=== PATIENT | male | born 1960 | race Caucasian/White ===

== ENCOUNTER 2016-10-21 09:15 | Inpatient (IN) | payer OTHER ==
[~2016-10-21] VITALS: Ht 170.2 cm; Wt 86.5 kg
[~2016-10-21 09:15] MED LIST: ASPEC81 PO; CHOL1TAB76 PO; FEXO1TAB46 PO; FLUT0.15 NAE; MICO2POW EXT; MISCCAP80 PO; MULT-94 PO
--- NOTE | 2016-10-21 09:51 | EMERGENCY ROOM VISIT NOTE ---
History Report prepared by Ellen: Yong Ramirez Under the Supervision of: Dr. Jose Ramon Clifford M.D. First contact with patient: 09:39 Chief Complaint: CARDIAC ASSESSMENT Stated Complaint: SOB, FAST HEARTRATE Nursing Triage Summary: patient states "I havent been feeling well for the past couple weeks. increased fatigue with any movement. A weird sensation in my chest I just cant describe. I have been having lots of pvc's in the past week or so. I am being followed because I have a bad aortic valve." was working today walked up steps and "I just couldn't do anymore." History of Present Illness The patient is a 56 year old male who presents to the Emergency Room with complaints of an episode of shortness of breath occurring earlier this morning. 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 He notes going up a flight of steps, had difficulty catching his breath, and was exhausted upon coming down the steps. Upon arriving at the hospital, he felt his heart rate was elevated around 140, and he notes he was hyperventilating and felt lightheaded. He reports he "didn't quite feel himself" early this morning but did not notice the shortness of breath initially. Per the patient's friend, these symptoms have been occurring for the past couple of months. The patient states today was the worse episode. He adds that he has had off and on left sided chest discomfort which is not exertional and resolves on its own. He denies having this chest discomfort with the shortness of breath today. The patient denies any history of COPD, asthma, or emphysema, but has mild aortic stenosis. He had an echo 2 days ago, and has an appointment in 3 days to follow. He denies any family history of blood clots, and has not been on any long trips recently. Source of History: patient, friend Onset: earlier this morning Position: other (global) Quality: other (shortness of breath) Timing: other (episode) Modifying Factors (Worsening): exertion Associated Symptoms: + chest pain (off and on nonexertional discomfort) Note: The patient notes having an elevated heart rate and breathing rate, and lightheadedness. Review of Systems See HPI for pertinent positives & negatives. A total of 10 systems reviewed and were otherwise negative. Past Medical & Surgical Medical Problems: (1) Allergic reaction to medication (2) Bicuspid aortic valve (3) DDD (degenerative disc disease), cervical (4) Diaphragmatic hernia (5) ESOPHAGEAL STRICTURE (6) GERD (gastroesophageal reflux disease) (7) History of basal cell carcinoma (8) History of hypertension (9) History of ventricular ectopy (10) Hyperlipidemia (11) Moderate aortic regurgitation (12) Moderate aortic stenosis (13) Palpitations (14) Psoriasis Surgical Problems: (1) H/O esophagogastroduodenoscopy (2) H/O rotator cuff surgery (3) Hx of tonsillectomy Family History Arrhythmia BROTHER Cancer Diabetes mellitus Heart disease FATHER (angina and bypass surgery, onset in 60s) UNCLE (onset in 60s) Social History Smoking Status: Unknown if Ever Smoked Alcohol Use: occasionally Drug Use: none Marital Status: single, in relationship Occupation Status: employed Current/Historical Medications Scheduled Atorvastatin (Lipitor), 20 MG PO DAILY Esomeprazole Magnesium (Nexium), 20 MG PO DAILY Allergies Coded Allergies: Ciprofloxacin (Verified Allergy, Mild, RASH, 10/21/16) Cephalexin (Verified Allergy, Unknown, RASH, 10/21/16) Latex (Verified Adverse Reaction, Mild, "GAVE STRANGE SENSATION TO SKIN", 10/21/16) Uncoded Allergies: TOPICAL STEROID (Allergy, Unknown, RASH AND FEELS LIKE SOMTHING IN THROAT, 01/19/15) Physical Exam Vital Signs Date Time Temp Pulse Resp B/P Pulse Ox O2 Delivery O2 Flow Rate FiO2 10/21/16 10:20 102 20 140/93 95 Room Air 10/21/16 10:12 96 Nasal Cannula 2.0 10/21/16 09:37 106 12 177/95 98 Nasal Cannula 2.0 10/21/16 09:26 119 10/21/16 09:25 36.7 131 22 181/105 96 Room Air 10/21/16 09:25 99 Nasal Cannula 2.0 10/21/16 09:25 96 Room Air Physical Exam GENERAL: Patient is in no acute distress. HEENT: No acute trauma, normocephalic atraumatic, mucous membranes moist, no nasal congestion, no scleral icterus. NECK: No stridor, no adenopathy, no meningismus, trachea is midline. LUNGS: Clear to auscultation bilaterally, no wheeze, no rhonchi, breath sounds equal. HEART: Mildly tachycardic with a 2/6 systolic murmur. Rhythm is regular. ABDOMEN: Soft, nontender, bowel sounds positive, no hernias, no peritonitis. EXTREMITIES: No cyanosis or edema, full range of motion of all the joints without pain or difficulty, no signs for acute trauma. NEUROLOGIC: Oriented x 3, no acute motor or sensory deficits, no focal weakness. SKIN: No rash, no jaundice, no diaphoresis. Medical Decision & Procedures ER Provider Diagnostic Interpretation: X-ray results as stated below per interpretation by me and the radiologist: CHEST ONE VIEW PORTABLE FINDINGS: The bones soft tissues and hemidiaphragms are normal. The cardiomediastinal silhouette is normal. The lungs are clear. The pulmonary vasculature is normal. IMPRESSION: Negative chest. Electronically signed by: Kody Murillo M.D. 10/21/2016 10:00 AM Dictated Date/Time: 10/21/2016 10:00 AM Laboratory Results 10/21/16 09:40 Red Blood Count 5.17, Mean Corpuscular Volume 83.6, Mean Corpuscular Hemoglobin 29.6, Mean Corpuscular Hemoglobin Concent 35.4, Mean Platelet Volume 9.6, Neutrophils (%) (Auto) 58.6, Lymphocytes (%) (Auto) 35.3, Monocytes (%) (Auto) 4.1, Eosinophils (%) (Auto) 1.2, Basophils (%) (Auto) 0.2, Neutrophils # (Auto) 4.72, Lymphocytes # (Auto) 2.85, Monocytes # (Auto) 0.33, Eosinophils # (Auto) 0.10, Basophils # (Auto) 0.02 10/21/16 09:40 Test 10/21/16 09:40 White Blood Count 8.07 K/uL (4.8-10.8) Red Blood Count 5.17 M/uL (4.7-6.1) Hemoglobin 15.3 g/dL (14.0-18.0) Hematocrit 43.2 % (42-52) Mean Corpuscular Volume 83.6 fL (80-100) Mean Corpuscular Hemoglobin 29.6 pg (25-34) Mean Corpuscular Hemoglobin Concent 35.4 g/dl (32-36) Platelet Count 184 K/uL (130-400) Mean Platelet Volume 9.6 fL (7.4-10.4) Neutrophils (%) (Auto) 58.6 % Lymphocytes (%) (Auto) 35.3 % Monocytes (%) (Auto) 4.1 % Eosinophils (%) (Auto) 1.2 % Basophils (%) (Auto) 0.2 % Neutrophils # (Auto) 4.72 K/uL (1.4-6.5) Lymphocytes # (Auto) 2.85 K/uL (1.2-3.4) Monocytes # (Auto) 0.33 K/uL (0.11-0.59) Eosinophils # (Auto) 0.10 K/uL (0-0.5) Basophils # (Auto) 0.02 K/uL (0-0.2) RDW Standard Deviation 38.7 fL (36.4-46.3) RDW Coefficient of Variation 12.8 % (11.5-14.5) Immature Granulocyte % (Auto) 0.6 % Immature Granulocyte # (Auto) 0.05 K/uL (0.00-0.02) Anion Gap 9.0 mmol/L (3-11) Est Creatinine Clear Calc Drug Dose 73.0 ml/min Estimated GFR () 77.9 Estimated GFR (Non- 67.2 BUN/Creatinine Ratio 17.2 (10-20) Calcium Level 8.9 mg/dl (8.5-10.1) Magnesium Level 1.8 mg/dl (1.8-2.4) Total Bilirubin 0.3 mg/dl (0.2-1) Aspartate Amino Transf (AST/SGOT) 27 U/L (15-37) Alanine Aminotransferase (ALT/SGPT) 47 U/L (12-78) Alkaline Phosphatase 110 U/L (45-117) Total Protein 8.1 gm/dl (6.4-8.2) Albumin 3.6 gm/dl (3.4-5.0) Globulin 4.5 gm/dl (2.5-4.0) Albumin/Globulin Ratio 0.8 (0.9-2) Chemistry Specimen Hemolysis POC troponin and D-dimer were both negative Laboratory results reviewed by me. ECG Indication: SOB/dyspnea Rate (beats per minute): 121 Rhythm: sinus tachycardia Findings: no acute ischemic change, no ectopy, other (possible old inferior infact) ED Course 0940: The patient was evaluated in room A2. A complete history and physical exam was performed. 1030: Discussed the patient's case with Brianna Silver PA-C. The patient will be evaluated for further management. 1038: I updated the patient and his is doing well. 1040: Upon reexamination the patient is hemodynamically stable. I discussed results and treatment plan with the patient. He verbalizes agreement and understanding. The patient will be evaluated for further management. Medical Decision Differentials include aortic stenosis, cardiac ischemia, OK, dysrhythmia, anemia , electrolyte imbalance, pneumonia, and PE. There is no leukocytosis or concerning anemia. No significant electrolyte abnormality, kidney failure or hepatitis. EKG showed a mild sinus tachycardia, no acute ischemia. There was a possible old inferior infarct. Initial troponin testing was negative. D-dimer testing was negative. With a negative d -dimer and my low suspicion for PE, I will stop the workup for this diagnosis. Chest film does not show mediastinal widening, pneumonia or CHF. Patient is resting comfortably. He feels well now that he is still. His symptoms are primarily exertional. I do think further cardiac workup is warranted. His issues may be related to his aortic stenosis. He may have coronary disease. I spoke to the patient and case management. Further workup here in the hospital was advised. Consults Time Called: 1025 Consulting Physician: Brianna Silver PA-C, [facility] Returned Call: 1030 Discussed the patient's case with Brianna Silver PA-C. The patient will be evaluated for further management. Impression Primary Impression: Shortness of breath Additional Impression: Tachycardia Scribe Attestation The scribe's documentation has been prepared under my direction and personally reviewed by me in its entirety. I confirm that the note above accurately reflects all work, treatment, procedures, and medical decision making performed by me. Departure Information Dispostion Being Evaluated By Hospitalist Referrals Michael Cisneros, RamonOKaylen (PCP) Patient Instructions [facility] Problem Qualifiers
[2016-10-21 10:01] LABS: BASO % 0.2 %; BASO ABS # 0.02 K/uL (0-0.2); COMPLETE YES; EOS % 1.2 %; HEMATOCRIT 43.2 % (42-52); IG% 0.6 %; LYMPH % 35.3 %; LYMPH ABS # 2.85 K/uL (1.2-3.4); MEAN CELL VOLUME 83.6 fL (80-100); MEAN CORPUSCULAR HEMOGLOBIN 29.6 pg (25-34); MEAN CORPUSCULAR HGB CONC 35.4 g/dl (32-36); MEAN PLATELET VOLUME 9.6 fL (7.4-10.4); MONO % 4.1 %; NEUT % 58.6 %; PLATELET COUNT 184 K/uL (130-400); RED BLOOD COUNT 5.17 M/uL (4.7-6.1); WHITE BLOOD COUNT 8.07 K/uL (4.8-10.8)
--- NOTE | 2016-10-21 10:02 | DIAGNOSTIC IMAGING REPORT ---
CHEST ONE VIEW PORTABLE CLINICAL HISTORY: EVALUATE RESPIRATORY DISTRESS. DYSPNEA dyspnea COMPARISON STUDY: 02/22/2016 FINDINGS: The bones soft tissues and hemidiaphragms are normal. The cardiomediastinal silhouette is normal. The lungs are clear. The pulmonary vasculature is normal. IMPRESSION: Negative chest. Electronically signed by: Kody Murillo M.D. 10/21/2016 10:00 AM Dictated Date/Time: 10/21/2016 10:00 AM
[2016-10-21] MEDS ORDERED: ATOR-22 PO (10:31)
[2016-10-21] MEDS ORDERED: ESOM20CA PO (10:31)
[2016-10-21 10:44] LABS: ALB/GLOB RATIO 0.8 (0.9-2); BUN/CREATININE RATIO 17.2 (10-20); CALCIUM 8.9 mg/dl (8.5-10.1); CREATININE 1.2 mg/dl (0.60-1.40); MAGNESIUM 1.8 mg/dl (1.8-2.4); POTASSIUM 4.1 mmol/L (3.5-5.1)
[2016-10-21 11:15] VITALS: O2SAT 95; Ht 170.2 cm; Wt 86.5 kg
[2016-10-21] MEDS ORDERED: ALUMINUM/MAGNESIUM/SIMETH (MAALOX MAX) 30 ML UDC PO PRN (12:30)
[2016-10-21] MEDS ORDERED: MAGNESIUM HYDROXIDE SUSP 30 ML UDC PO PRN (12:30)
[2016-10-21] MEDS ORDERED: NITROGLYCERIN 0.4 MG SL PER TAB CHARGE SL PRN (12:30)
[2016-10-21] MEDS ORDERED: ONDANSETRON INJ 2 MG/ML 2 ML VIAL IV PRN (12:30)
[2016-10-21] MEDS ORDERED: ACETAMINOPHEN 325 MG TAB PO PRN (12:30)
[2016-10-21] MEDS ORDERED: ASPIRIN 81 MG ECTAB PO STA (12:32)
[2016-10-21] MEDS ORDERED: LEVALBUTEROL 0.63MG/3 ML NEB INH PRN (12:45)
[2016-10-21] MEDS ORDERED: ASPIRIN 81 MG CHEW ONE (12:45)
[2016-10-21] MEDS ORDERED: IV FLUIDS COMPLETED PRN (13:15)
[2016-10-21 14:23] VITALS: BP_SYST 179; BP_SYST 200; BP_DIAS 82; BP_DIAS 88; PULSE 91; TEMP 36.7; O2SAT 92
[2016-10-21] MEDS: SODIUM CHLORIDE 0.9% 1000ML 1,000 ML IV SCH (14:32)
[2016-10-21 16:00] VITALS: O2SAT 94
[2016-10-21 17:00] VITALS: BP 173/86; PULSE 79; TEMP 36.8; O2SAT 99
[2016-10-21 19:45] VITALS: BP 167/96; PULSE 78; TEMP 36.8; O2SAT 97
[2016-10-21] MEDS ORDERED: METOPROLOL TARTRATE 1 MG/ML VIAL IV PRN (20:45)
[2016-10-21] MEDS ORDERED: HydrALAZINE HCL 20 MG/ML VIAL IV. PRN (20:45)
[2016-10-21 20:55] LABS: CKMB/CK RATIO 1.1 (0-3.0)
[2016-10-21 22:44] VITALS: BP 142/85; PULSE 78; TEMP 36.6; O2SAT 95
[2016-10-22 04:00] VITALS: BP 144/81; PULSE 72; TEMP 36.5; O2SAT 95
[2016-10-22 05:52] LABS: CHOLESTEROL 171 mg/dl (0-200); CHOLESTEROL/HDL RATIO 5.7; CKMB/CK RATIO 1.6 (0-3.0); HDL CHOLESTEROL 30 mg/dl; LDL CHOLESTEROL CALCULATED 102 mg/dl; TRIGLYCERIDES 196 mg/dl (0-150); VERY LOW DENSITY LIPOPROT CALC 39 mg/dl
[2016-10-22 07:45] VITALS: BP_SYST 131; PULSE 68; TEMP 36.5; O2SAT 99
[2016-10-22] MEDS: SODIUM CHLORIDE 0.9% 1000ML 1,000 ML IV SCH ×3 (08:28→20:21)
[2016-10-22] MEDS ORDERED: ATORVASTATIN 20 MG TAB PO SCH (09:00)
[2016-10-22] MEDS ORDERED: ASPIRIN 81 MG ECTAB PO SCH (09:00)
[2016-10-22] MEDS ORDERED: PANTOprazole SOD 40 MG TAB PO SCH (09:00)
--- NOTE | 2016-10-22 11:23 | HISTORY & PHYSICAL EXAMINATION ---
DATE OF ADMISSION: 10/21/2016 CHIEF COMPLAINT: Shortness of breath and palpitations. HISTORY OF PRESENT ILLNESS: This is a 56-year-old male with past medical history significant for bioprosthetic aortic valve with moderate stenosis, history of allergy reaction, Oesophageal stricture,Diaphragmatic hernia, dysphagia, history of abdominal pain, hyperlipidemia, hyperglycemia, rosacea, dermatitis, And allergic rhinitis, presents with shortness of breath and palpitations. As per the patient since last one year he is not feeling well , and getting shortness of breath since last 6 months. End of the everyday, he feels exhausted. Since the last 2 weeks, he is feeling 2 / 10 left chest pain radiating to the left neck and left shoulder, no shortness of breath. Occasionally, he has some lightheadedness. The chest pain can come anytime when sitting in the couch, lasts for 2-3 minutes and resolves. Since last 10/11/2016, this is happening every day. Today, while at work when climbed one flight of steps, he was very short of breath and he had to stop. At that time, his coworkers brought him to the ER. Currently, resting comfortably and denies any chest pain or shortness of breath or cough. No recent fever or chills. No nausea, no vomiting, no diarrhea, and no abdominal pain. Hemodynamically stable. When he came to the ER initially, his heart rate was in 140s. Blood pressure elevated, but currently the heart rate is in 80s and 90s. ALLERGIES: ALLERGY TO CIPROFLOXACIN KEFLEX, BETAMETHASONE DIPROPIONATE. PAST MEDICAL HISTORY: As mentioned above. PAST SURGICAL HISTORY: Right rotator cuff arthroscopy, colonoscopy, EGD, and tonsillectomy. MEDICATIONS: At home, the patient is on fish oil 1000 mg p.o. t.i.d., Coenzyme Q10 at 400 mcg p.o. daily, Protonix 40 mg p.o. daily, Lipitor 20 mg p.o. daily, Sudafed one tablet p.o. daily, aspirin 81 mg p.o. daily, and vitamin D 2000 units p.o. daily. FAMILY HISTORY: Significant for, father had heart disorder, mother has hypertension, and brother has hypertension. SOCIAL HISTORY: Former smoker, quit in , smoked one pack a day for 20 years. Alcohol rarely. No drug use. REVIEW OF SYMPTOMS: As per HPI. Rest of review of symptoms negative. PHYSICAL EXAMINATION: GENERAL: The patient is moderate built, not in distress. VITAL SIGNS: Temperature 36.7, pulse when he came in was 130 and currently in the 80s-90s, respiratory rate 20, blood pressure 127/93, and oxygen 98% on 2 liters. HEENT: No pallor, no icterus. Pupils equal, round, and reactive to light. NECK: No JVD, no neck masses, no carotid bruits. CARDIOVASCULAR: S1 and S2 heard, regular rate and rhythm. Systolic murmur in aortic area. No gallop. RESPIRATORY SYSTEM: Clear to auscultation bilaterally. No accessory muscle use. No wheezing and no crackles. ABDOMEN: Soft, bowel sounds present. Nontender. No distention. CENTRAL NERVOUS SYSTEM: Cranial nerves II-XII grossly intact. Nonfocal. EXTREMITIES: No edema, no erythema. LABS: WBC 8, hemoglobin 15.3, hematocrit 43.2, and platelets 184. Sodium 138, potassium 4.1, chloride 104, bicarbonate 25, BUN 21, creatinine 1.2, serum glucose 200, calcium 8.9, and magnesium 1.8. Total bilirubin 0.3. AST 27, ALT 47, and alkaline phosphatase 110. Chest x-ray, negative chest. EKG: Sinus tachycardia at a rate of 121. No acute ST changes seen. ASSESSMENT AND PLAN: This is a 56-year-old male who presents with exertion, shortness of breath and palpitation AND CHEST PAIN. 1.SOB/PALPITATIONS/CHEST PAIN No history of COPD or emphysema. Unofficial reading of D-dimer is negative. Chest x-ray unremarkable. Troponin negative. History of bioprosthetic aortic valve. Had echocardiogram done couple of days ago and supposed to follow cardiology next week. On presentation, his heart rate was in 140s, sinus tachycardia, currently resting and his heart rate is stable. sob on exertion going on for the last 6 months and also having chest pain since last 2 weeks on and off, comes and goes on its own. We will monitor on tele floor. Serial cardiac enzymes, consult cardiology for further recommendations. 2. Hyperlipidemia. Continue statin. 3. Hyperglycemia, not on any medications. We will follow hemoglobin A1c levels. 4. History of gastroesophageal reflux disease. Continue PPI. 5. Deep vein thrombosis prophylaxis, SCDs and TEDs for now. 6. Disposition: Observation in tele floor level 1 full code. MTDD
[2016-10-22 12:05] VITALS: BP 155/93; PULSE 73; TEMP 36; O2SAT 95
--- NOTE | 2016-10-22 12:59 | Progress Note ---
Internal Med Progress Note Date of Service: Oct 22, 2016. Provider Documentation: SUBJECTIVE: resting comfortably no more episodes of sob or chest pain since last night afebrile hemodynamics stable OBJECTIVE: Vital Signs-as noted below Exam: General-alert and oriented ENT-normal hearing Neck-no neck masses Lungs-cta b/l no wheezing no crackles Heart-s1 and s2 heard regular rate and rhythm no murmurs Abdomen-soft bowel sounds present non tender no distension Extremities-no erythema no edema Neuro-alert and awake moves extremities Lab data as noted below. ASSESSMENT & PLAN: 1.SOB/PALPITATIONS/CHEST PAIN No history of COPD or emphysema. D-dimer is negative?. Chest x-ray unremarkable.Serial CE negative. History of bioprosthetic aortic valve. Had echocardiogram done couple of days ago and supposed to follow cardiology next week. Sinus tachycardia on presentation. Currently chest pain free and No SOB. Heart rates stable. Seen by cardiology and decided for cardiac cath in am to rule out CAD for ongoing issues. for further recommendations. 2. Hyperlipidemia. Continue statin.[id number], HDL 30,TG 196, chol 171. 3. Hyperglycemia, not on any medications. We will follow hemoglobin A1c levels. 4. History of gastroesophageal reflux disease. Continue PPI. 5. Deep vein thrombosis prophylaxis, SCDs and TEDs for now. 6. Disposition: Await cardiac cath Monitor in tele Vital Signs: Date Time Temp Pulse Resp B/P Pulse Ox O2 Delivery O2 Flow Rate FiO2 10/22/16 12:05 36.0 73 20 155/93 95 Room Air 10/22/16 08:00 Room Air 10/22/16 07:45 36.5 68 20 131/ 99 Room Air 10/22/16 04:00 36.5 72 18 144/81 95 Room Air 10/22/16 04:00 Room Air 10/21/16 23:59 Room Air 10/21/16 22:44 36.6 78 18 142/85 95 Room Air 10/21/16 20:00 Room Air 10/21/16 19:45 36.8 78 22 167/96 97 Room Air 10/21/16 17:00 36.8 79 22 173/86 99 Room Air 10/21/16 16:00 94 Room Air 10/21/16 14:23 36.7 91 24 200/82 92 Room Air 179/88 10/21/16 13:55 74 20 154/90 99 Lab Results: Results Past 24 Hours Test 10/21/16 20:15 10/22/16 04:45 10/22/16 06:57 10/22/16 11:32 Range/Units Total Creatine Kinase 123 96 39-308 U/L Creatine Kinase MB 1.3 1.5 0.5-3.6 ng/ml Creatine Kinase MB Ratio 1.1 1.6 0-3.0 Troponin I < 0.015 < 0.015 0-0.045 ng/ml Triglycerides Level 196 0-150 mg/dl Cholesterol Level 171 0-200 mg/dl HDL Cholesterol 30 mg/dl LDL Cholesterol, Calculated 102 mg/dl VLDL Cholesterol, Calculated 39 mg/dl Cholesterol/HDL Ratio 5.7 Thyroid Stimulating Hormone (TSH) 2.000 0.300-4.500 uIu/ml Bedside Glucose 123 107 70-99 mg/dl
--- NOTE | 2016-10-22 13:22 | CARDIOLOGY CONSULTATION ---
DATE OF CONSULTATION: 10/22/2016 CONSULTATION REQUESTED BY: Dr. Tai. REASON FOR CONSULTATION: Shortness of breath and palpitations. HISTORY OF PRESENT ILLNESS: Mr. Rodriges is a very pleasant 56-year-old gentleman who was recently followed with Dr. Del Real of our cardiology practice, presented to [facility] on 10/21/2016 with a complaint of shortness of breath and severe fatigue. The patient states that he has just not felt himself over the last several weeks. 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 Then he states that yesterday, he was at work, feeling his normal lethargic self when he suddenly climbed set of stairs and became significantly dyspneic and lightheaded. He states that at that point, he was unable to complete his duties. His fellow EMT saw that he was in some distress and sat him down. The patient felt too lightheaded to even be able to drive the ambulance afterwards. This was associated with some palpitations. He just felt as though his heart was pounding in his chest after climbing up the steps. He denies significant pain though. He states he has felt very lightheaded, very short of breath and very fatigued. He then went home and rested and his symptoms persisted for several hours and then finally came into the Emergency Department. In the Emergency Department, he was found to be in sinus tachycardia. Otherwise, his workup was unremarkable except for being volume depleted by numbers. He was given a liter normal saline and admitted to telemetry. He states overnight he still feels significantly fatigued and dyspneic with even minimal exertion. The day of the event, he states he has been drank over 70 ounces of water, but admits that he had 3 large cups of coffee as well. PAST SURGICAL HISTORY: 1. EGD. 2. Tonsillectomy. 3. Schatzki's ring dilatation. 4. Colonoscopy. 5. Right rotator cuff repair. MEDICAL ILLNESSES: 1. Bicuspid aortic valve with moderate stenosis and moderate insufficiency, stable by most recent echocardiogram on 10/18/2016. 2. History of esophageal stricture, status post dilatation. 3. Dyslipidemia. 4. Rosacea. 5. Psoriasis. FAMILY HISTORY: Denies any premature coronary artery disease or sudden cardiac . SOCIAL HISTORY: He has a remote tobacco use history. Drinks rare alcohol. Denies any recreational drug use. He drinks 2-3 cups of coffee a day. 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 REVIEW OF SYSTEMS: As per HPI, all other review of systems reviewed and negative at this time. ALLERGIES: 1. CIPRO. 2. ENVIRONMENTAL ALLERGIES. 3. KEFLEX. 4. BETAMETHASONE. MEDICATIONS AN OUTPATIENT: 1. Aspirin 81 mg daily. 2. Atorvastatin 20 mg daily. 3. Coenzyme Q10 at 400 mg daily. 4. Shipman-3 fish oil 1000 mg 3 times a day. PHYSICAL EXAMINATION: VITAL SIGNS: Temperature 36.5, pulse 68, respiratory rate 12, and blood pressure 144/81. GENERAL: Awake, alert, and oriented x3, in no acute distress. HEENT: Normocephalic and atraumatic. Pupils are equal, round, and reactive to light and accommodation. Extraocular muscles intact. Anicteric sclerae. Moist mucous membranes. NECK: No JVD. No bruit. CARDIOVASCULAR: Regular. Positive S4. Normal S1 and S2. No S3. Soft 2/6 mid to late systolic ejection murmur greatest at the right sternal border second intercostal space without radiation. No rubs. PULMONARY: Clear to auscultation bilaterally. No rales, rhonchi, or wheezing. ABDOMEN: Bowel sounds x4, soft. No rebound, guarding, or tenderness. No organomegaly. EXTREMITIES: No clubbing, cyanosis or edema. +2 pedal pulses bilaterally. SKIN: Warm and dry. TEST RESULTS: A 12-lead EKG performed on 10/21/2016 in the Emergency Department independently reviewed at this time shows sinus tachycardia with no ischemic changes compared to previous studies. A 2D echocardiogram performed on 10/18/2016 was read as moderate aortic valve stenosis is present, normal wall motion, normal LV systolic function, EF 60%-64%, and aortic valves congenitally bicuspid. There is fusion on the left and right coronary cusps with resultant restrictive excursion. The aortic valve was moderately calcified. Mild to moderate aortic valve regurgitation is present. The Doppler evaluation appears to underestimate the severity of the aortic stenosis. Moderate aortic valve stenosis is present by 2D imaging. Exercise stress echocardiogram performed in December 2015 was nonischemic. IMPRESSION: 1. Worsening dyspnea on exertion. 2. Significant fatigue. 3. Prerenal azotemia. 4. Moderate aortic valve stenosis and regurgitation. RECOMMENDATIONS: It was my pleasure to see Mr. Rodriges in consultation today. The patient was counseled given the progression of his symptoms along with his recent nonischemic stress echocardiogram. I believe that the most prudent course of action at this point will be to perform a cardiac catheterization to directly visualize his coronary anatomy and evaluate for any limitations of blood flow. This will give us the added benefit of directly invasively measuring aortic valve pressures as well. So, he agrees with this plan. We will perform a cardiac catheterization in the a.m. He will be made n.p.o. after midnight. No other medications will be started at this time; however, will give him another liter of normal saline for volume expansion. ZAHRA
[2016-10-22 16:03] VITALS: BP 132/68; PULSE 77; TEMP 36.6; O2SAT 95
[2016-10-22 19:55] VITALS: BP 150/76; PULSE 76; TEMP 36.8; O2SAT 99
[2016-10-22 23:47] VITALS: BP 127/62; PULSE 74; TEMP 36.7; O2SAT 95
[2016-10-23 03:40] VITALS: BP 123/77; PULSE 66; TEMP 36.4; O2SAT 97
[2016-10-23 07:39] LABS: ESTIMATED AVERAGE GLUCOSE 140 mg/dl; HA1C FLAG Normal (Normal)
[2016-10-23 08:01] VITALS: BP 145/79; PULSE 66; TEMP 36.6; O2SAT 97
--- NOTE | 2016-10-23 08:36 | ECHOCARDIOGRAM REPORT ---
*NOTICE TO RECEIVING CONSTITUTION PARTY AGENCY This information is strictly Confidential and protected under [place] law. [place] law prohibits you from making any further disclosure of this information unless further disclosure is expressly permitted by the written consent of the person to whom it pertains or is authorized by law. A general authorization for the release of medical or other information is not sufficient for this purpose. Hospital accepts no responsibility if the information is made available to any other person, INCLUDING THE PATIENT. Interpretation Summary * Name: PAUL MALDONADO Study Date: 10/22/2016 11:29 AM BP: 144/81 mmHg * Patient Location: C.2T\S\S239\S\2 HR: 71 * : 1960 (M/d/yyyy) Gender: Male Height: 67 in * Age: 56 yrs Ethnicity: [place] Weight: 191 lb * Ordering Physician: Charlie Medrano * Referring Physician: Self, Referred * Performed By: Radha Ramirez [facility] * * Reason For Study: VALVULAR HEART DISEASE * BSA: 2.0 m2 * -- Conclusions -- * Normal LV chamber size with mild concentric LVH. * Normal LV systolic function, EF 60-65%. * No segmental left ventricular wall motion abnormalities are noted. * Bicuspid aortic valve. Procedure Details * Limited views were obtained. Left Ventricle * The left ventricle is normal in size. * There is mild concentric left ventricular hypertrophy. * Left ventricular systolic function is normal. * No segmental left ventricular wall motion abnormalities are noted. * Ejection Fraction = 60-65%. * The left ventricular wall motion is normal. Aortic Valve * The aortic valve is bicuspid. MMode 2D Measurements and Calculations IVSd 1.3 cm IVSs 1.7 cm LVIDd 4.7 cm LVIDs 2.9 cm LVPWd 1.1 cm LVPWs 1.4 cm IVS/LVPW 1.1 FS 37.4 % EDV(Teich) 101.0 ml ESV(Teich) 32.9 ml EF(Teich) 67.4 % EDV(cubed) 102.0 ml ESV(cubed) 25.0 ml EF(cubed) 75.5 % % IVS thick 30.9 % % LVPW thick 24.9 % LV mass(C)d 214.5 grams LV mass(C)dI 108.2 grams/m\S\2 LV mass(C)s 163.5 grams LV mass(C)sI 82.4 grams/m\S\2 SV(Teich) 68.1 ml SI(Teich) 34.3 ml/m\S\2 SV(cubed) 77.0 ml SI(cubed) 38.8 ml/m\S\2 Ao root diam 3.9 cm Ao root area 11.8 cm\S\2 LA dimension 3.6 cm LA/Ao 0.92 LVOT diam 2.0 cm LVOT area 3.0 cm\S\2 LVAd ap4 29.7 cm\S\2 LVLd ap4 7.6 cm EDV(MOD-sp4) 93.0 ml EDV(sp4-el) 98.8 ml LVAs ap4 16.6 cm\S\2 LVLs ap4 6.1 cm ESV(MOD-sp4) 36.2 ml ESV(sp4-el) 38.5 ml EF(MOD-sp4) 61.0 % EF(sp4-el) 61.1 % LVAd ap2 28.3 cm\S\2 LVLd ap2 7.8 cm EDV(MOD-sp2) 87.0 ml EDV(sp2-el) 87.5 ml LVAs ap2 18.9 cm\S\2 LVLs ap2 6.3 cm ESV(MOD-sp2) 47.7 ml ESV(sp2-el) 47.9 ml EF(MOD-sp2) 45.2 % EF(sp2-el) 45.3 % LVLd %diff 2.0 % EDV(MOD-bp) 89.6 ml LVLs %diff 4.5 % ESV(MOD-bp) 42.1 ml EF(MOD-bp) 53.0 % SV(MOD-sp4) 56.7 ml SI(MOD-sp4) 28.6 ml/m\S\2 SV(MOD-sp2) 39.3 ml SI(MOD-sp2) 19.8 ml/m\S\2 SV(MOD-bp) 47.5 ml SI(MOD-bp) 24.0 ml/m\S\2 SV(sp4-el) 60.3 ml SI(sp4-el) 30.4 ml/m\S\2 SV(sp2-el) 39.6 ml SI(sp2-el) 20.0 ml/m\S\2 Doppler Measurements and Calculations Ao V2 max 220.1 cm/sec Ao max PG 19.4 mmHg Ao max PG (full) 15.6 mmHg Ao V2 mean 154.0 cm/sec Ao mean PG 10.8 mmHg Ao mean PG (full) 8.5 mmHg Ao V2 VTI 45.6 cm OBIE(I,A) 1.4 cm\S\2 OBIE(I,D) 1.4 cm\S\2 OBIE(V,A) 1.3 cm\S\2 OBIE(V,D) 1.3 cm\S\2 AI max veronika 396.7 cm/sec AI max PG 62.9 mmHg AI dec slope 175.8 cm/sec\S\2 AI P1/2t 660.8 msec LV V1 max PG 3.8 mmHg LV V1 mean PG 2.3 mmHg LV V1 max 97.1 cm/sec LV V1 mean 72.0 cm/sec LV V1 VTI 21.7 cm SV(Ao) 537.1 ml SI(Ao) 270.9 ml/m\S\2 SV(LVOT) 65.4 ml SI(LVOT) 33.0 ml/m\S\2
--- NOTE | 2016-10-23 10:46 | Cardiology Follow-Up ---
Subjective Subjective Date of Service: Oct 23, 2016. Pt evaluation today including: conversation w/ patient, physical exam, chart review, lab review, review of studies, review of inpatient medication list Additional Details: Pt seen and examined, states that he feels well. No further events overnight. Denies cp, sob, palpitations, lightheadedness or dizziness. Ambulating in the hallway without issue Tele reviewed; sinus rhythm without arrhythmia or significant ectopy. Problem List Medical Problems: (1) Shortness of breath Status: Acute (2) SOB (shortness of breath) Status: Acute (3) Tachycardia Status: Acute (4) Tachycardia Status: Acute Review of Systems Constitutional: + weakness Respiratory: No cough, No dyspnea at rest, No dyspnea on exertion, No hemoptysis, No problem reported, No see HPI, No shortness of breath, No sputum, No wheezing Cardiac: + palpitations, No PND, No chest pain, No claudication, No edema, No orthopnea, No problem reported, No see HPI Neurologic: + weakness Objective Vital Signs Last Vital Signs Documentation Date Time Temp Pulse Resp B/P Pulse Ox O2 Delivery O2 Flow Rate FiO2 10/23/16 08:01 36.6 66 20 145/79 97 Room Air 10/21/16 10:12 2.0 Physical Exam: General Appearance: WD/WN, no apparent distress Eyes: bilateral eyes EOMI, bilateral eyes PERRL, bilateral eyes normal inspection ENT: normal ENT inspection, hearing grossly normal, pharynx normal Neck: supple, no adenopathy, thyroid normal, no JVD, no carotid bruits, trachea midline Respiratory/Chest: chest non-tender, lungs clear, normal breath sounds, no respiratory distress, no accessory muscle use Cardiovascular: regular rate, rhythm, no edema, no JVD, + systolic murmur, + gallop/S4 Abdomen: normal bowel sounds, non tender, soft, no organomegaly, no pulsatile mass Extremities: normal range of motion, non-tender, normal inspection, no pedal edema, no calf tenderness Neurologic/Psychiatric: stock controller II-XII nml as tested, no motor/sensory deficits, alert, normal mood/affect, oriented x 3 Skin: normal color, warm/dry, no rash Lymphatic: no adenopathy Assessment and Plan 1. Dyspnea on exertion/fatigue for cardiac cath to evaluate coronary arteries and aortic valve unfortunately, patient with a latex allergy latex free catheters not available in the [employer], will be delivered sometime tomorrow discussed options with patient he would prefer to be discharged and complete cath as outpatient will schedule for 10/26 pt is to remain off of work until cath performed my office will provide a letter for patient to give employer no medication changes ok to d/c to home with cardiac cath scheduled for 10/26 as outpatient.
[2016-10-23 11:40] LABS: HEMATOCRIT 44.1 % (42-52); MEAN CELL VOLUME 82.9 fL (80-100); MEAN CORPUSCULAR HEMOGLOBIN 28.9 pg (25-34); MEAN CORPUSCULAR HGB CONC 34.9 g/dl (32-36); MEAN PLATELET VOLUME 8.8 fL (7.4-10.4); PLATELET COUNT 173 K/uL (130-400); RED BLOOD COUNT 5.32 M/uL (4.7-6.1); WHITE BLOOD COUNT 7.35 K/uL (4.8-10.8)
--- NOTE | 2016-10-23 12:02 | Progress Note ---
Internal Med Progress Note Date of Service: Oct 23, 2016. Provider Documentation: SUBJECTIVE: The patient was seen and examined Denies any symptoms No arrhythmia noted on monitor OBJECTIVE: Vital Signs-as noted below Exam: General-no distress Eyes-normal ENT-normal Neck-supple Lungs-clear to auscultate bilaterally Heart-Regular,no murmur Abdomen-Benign,no masses,bowel sound present Extremities-No edema Neuro-AAOx3 Lab data as noted below. ASSESSMENT & PLAN: SOB/PALPITATIONS/CHEST PAIN-Angina Equivalent No history of COPD or emphysema. Serial CE negative for any ACS . History of bioprosthetic aortic valve. Had echocardiogram done couple of days ago and supposed to follow cardiology a week later . Sinus tachycardia on presentation. No more pain after admission Seen by cardiology and decided for cardiac cath on 10/23/16 NO cardiac cath today due to lack of Latex free catheter as the patient is allergic to latex Will schedule Cardiac Cath on 10/26 Further recommendation following the cardiac cath Hyperlipidemia. Continue statin.[id number], HDL 30,TG 196, chol 171. Hyperglycemia, not on any medications. We will follow hemoglobin A1c-6.5 History of gastroesophageal reflux disease. Continue PPI. Deep vein thrombosis prophylaxis, SCDs and TEDs -ambulant Disposition: Discharge home today Cardiac Cath on 10/26/16 Patient will schedule appointment with PCP Vital Signs: Date Time Temp Pulse Resp B/P Pulse Ox O2 Delivery O2 Flow Rate FiO2 10/23/16 08:01 36.6 66 20 145/79 97 Room Air 10/23/16 04:00 Room Air 10/23/16 03:40 36.4 66 18 123/77 97 Room Air 10/22/16 23:59 Room Air 10/22/16 23:47 36.7 74 17 127/62 95 Room Air 10/22/16 20:00 Room Air 10/22/16 19:55 36.8 76 18 150/76 99 10/22/16 16:03 36.6 77 16 132/68 95 10/22/16 16:00 Room Air 10/22/16 12:05 36.0 73 20 155/93 95 Room Air 10/22/16 12:00 Room Air Lab Results: Results Past 24 Hours Test 10/22/16 16:34 10/22/16 18:22 10/22/16 20:09 10/23/16 06:53 Range/Units Bedside Glucose 126 171 121 70-99 mg/dl Total Creatine Kinase 104 39-308 U/L Troponin I < 0.015 < 0.015 0-0.045 ng/ml Test 10/23/16 11:30 Range/Units White Blood Count 7.35 4.8-10.8 K/uL Red Blood Count 5.32 4.7-6.1 M/uL Hemoglobin 15.4 14.0-18.0 g/dL Hematocrit 44.1 42-52 % Mean Corpuscular Volume 82.9 80-100 fL Mean Corpuscular Hemoglobin 28.9 25-34 pg Mean Corpuscular Hemoglobin Concent 34.9 32-36 g/dl RDW Standard Deviation 38.1 36.4-46.3 fL RDW Coefficient of Variation 12.8 11.5-14.5 % Platelet Count 173 130-400 K/uL Mean Platelet Volume 8.8 7.4-10.4 fL
[2016-10-23 12:07] VITALS: BP 162/78; PULSE 64; TEMP 36.7; O2SAT 96
[2016-10-23 12:10] LABS: BUN/CREATININE RATIO 14.6 (10-20); CALCIUM 8.9 mg/dl (8.5-10.1); CREATININE 0.92 mg/dl (0.60-1.40); MAGNESIUM 2.2 mg/dl (1.8-2.4); POTASSIUM 4.1 mmol/L (3.5-5.1)
[2016-10-23] MEDS ORDERED: ASPEC81 PO (13:57)
[2016-10-23] MEDS ORDERED: NTRSLP4 SL (13:57)
--- NOTE | 2016-10-23 14:00 | Discharge Instructions ---
Discharge Instructions Admission Reason for Admission: Shortness Of Breath; Tachycardia Discharge Discharge Diagnosis / Problem: Chaest pain,No ACS,Scheduled cardiac Cath on 10/26 Discharge Goals Goal(s): Prevent Disease Progression Activity Recommendations Activity Limitations: per Instructions/Follow-up section Do not go back to work before the cardiac Cath . Instructions / Follow-Up Instructions / Follow-Up Please make an appointment with your PCP following the Cardiac cath Current Hospital Diet Patient's current hospital diet: Diabetes Type 2 Diet, AHA Diet (Heart Healthy) Discharge Diet Recommended Diet: AHA Diet (Heart Healthy) Pending Studies Studies pending at discharge: no Laboratory Results Hemoglobin A1c Test 10/22/16 04:45 Range/Units Estimated Average Glucose 140 mg/dl Hemoglobin A1c 6.5 H 4.5-5.6 % Lipid Panel Test 10/22/16 04:45 Range/Units Triglycerides Level 196 H 0-150 mg/dl Cholesterol Level 171 0-200 mg/dl HDL Cholesterol 30 mg/dl Cholesterol/HDL Ratio 5.7 LDL Cholesterol, Calculated 102 mg/dl Medical Emergencies . Who to Call and When: Medical Emergencies: If at any time you feel your situation is an emergency, please call 911 immediately. . Non-Emergent Contact Non-Emergency issues call your: Primary Care Provider . Past History Medical & Surgical History: (1) Bicuspid aortic valve (2) ESOPHAGEAL STRICTURE (3) ESOPHAGEAL REFLUX (4) Shortness of breath (5) Tachycardia (6) Moderate aortic stenosis (7) Hyperlipidemia (8) History of hypertension . "Provider Documentation" section prepared by Sulaiman Mares. VTE Core Measure Inpt VTE Proph given/why not?: SCD's
[2016-10-23 14:21] VITALS: BP 162/78; PULSE 64; TEMP 36.7; O2SAT 96
--- NOTE | 2016-10-24 08:11 | Discharge Summary ---
Discharge Summary Admission Date: Oct 21, 2016 at 13:08 Discharge Date: Oct 23, 2016 Discharge Disposition: Home Principal Diagnosis: Chest pain,No ACS,Scheduled cardiac Cath on 10/26/16 Secondary Diagnoses/Problems: Please see H&P Consultations: Cardiology Medication Reconciliation New Medications: Aspirin (Aspirin EC Low Dose) 81 Mg Ectab 81 MG PO QAM for 30 Days, #30 Nitroglycerin (Nitrostat) 0.4 Mg/1 Tab Subl 0.4 MG SL UD PRN for Chest Pain for 30 Days, #25 1 tab uder the tongue,5 minutes apart .Max 3 tabs in one episode Continued Medications: Atorvastatin (Lipitor) 20 Mg Tab 20 MG PO DAILY, TAB Esomeprazole Magnesium (Nexium) 20 Mg Capcr 20 MG PO DAILY, CAP Admission Information HPI (per Admitting provider): DATE OF ADMISSION: 10/21/2016 CHIEF COMPLAINT: Shortness of breath and palpitations. HISTORY OF PRESENT ILLNESS: This is a 56-year-old male with past medical history significant for bioprosthetic aortic valve with moderate stenosis, history of allergy reaction, Oesophageal stricture,Diaphragmatic hernia, dysphagia, history of abdominal pain, hyperlipidemia, hyperglycemia, rosacea, dermatitis, And allergic rhinitis, presents with shortness of breath and palpitations. As per the patient since last one year he is not feeling well , and getting shortness of breath since last 6 months. End of the everyday, he feels exhausted. Since the last 2 weeks, he is feeling 2 / 10 left chest pain radiating to the left neck and left shoulder, no shortness of breath. Occasionally, he has some lightheadedness. The chest pain can come anytime when sitting in the couch, lasts for 2-3 minutes and resolves. Since last 10/11/2016, this is happening every day. Today, while at work when climbed one flight of steps, he was very short of breath and he had to stop. At that time, his coworkers brought him to the ER. Currently, resting comfortably and denies any chest pain or shortness of breath or cough. No recent fever or chills. No nausea, no vomiting, no diarrhea, and no abdominal pain. Hemodynamically stable. When he came to the ER initially, his heart rate was in 140s. Blood pressure elevated, but currently the heart rate is in 80s and 90s. ALLERGIES: ALLERGY TO CIPROFLOXACIN KEFLEX, BETAMETHASONE DIPROPIONATE. PAST MEDICAL HISTORY: As mentioned above. PAST SURGICAL HISTORY: Right rotator cuff arthroscopy, colonoscopy, EGD, and tonsillectomy. MEDICATIONS: At home, the patient is on fish oil 1000 mg p.o. t.i.d., Coenzyme Q10 at 400 mcg p.o. daily, Protonix 40 mg p.o. daily, Lipitor 20 mg p.o. daily, Sudafed one tablet p.o. daily, aspirin 81 mg p.o. daily, and vitamin D 2000 units p.o. daily. FAMILY HISTORY: Significant for, father had heart disorder, mother has hypertension, and brother has hypertension. SOCIAL HISTORY: Former smoker, quit in , smoked one pack a day for 20 years. Alcohol rarely. No drug use. REVIEW OF SYMPTOMS: As per HPI. Rest of review of symptoms negative. PHYSICAL EXAMINATION: GENERAL: The patient is moderate built, not in distress. VITAL SIGNS: Temperature 36.7, pulse when he came in was 130 and currently in the 80s-90s, respiratory rate 20, blood pressure 127/93, and oxygen 98% on 2 liters. HEENT: No pallor, no icterus. Pupils equal, round, and reactive to light. NECK: No JVD, no neck masses, no carotid bruits. CARDIOVASCULAR: S1 and S2 heard, regular rate and rhythm. Systolic murmur in aortic area. No gallop. RESPIRATORY SYSTEM: Clear to auscultation bilaterally. No accessory muscle use. No wheezing and no crackles. ABDOMEN: Soft, bowel sounds present. Nontender. No distention. CENTRAL NERVOUS SYSTEM: Cranial nerves II-XII grossly intact. Nonfocal. EXTREMITIES: No edema, no erythema. LABS: WBC 8, hemoglobin 15.3, hematocrit 43.2, and platelets 184. Sodium 138, potassium 4.1, chloride 104, bicarbonate 25, BUN 21, creatinine 1.2, serum glucose 200, calcium 8.9, and magnesium 1.8. Total bilirubin 0.3. AST 27, ALT 47, and alkaline phosphatase 110. Chest x-ray, negative chest. EKG: Sinus tachycardia at a rate of 121. No acute ST changes seen. ASSESSMENT AND PLAN: This is a 56-year-old male who presents with exertion, shortness of breath and palpitation AND CHEST PAIN. 1.SOB/PALPITATIONS/CHEST PAIN No history of COPD or emphysema. Unofficial reading of D-dimer is negative. Chest x-ray unremarkable. Troponin negative. History of bioprosthetic aortic valve. Had echocardiogram done couple of days ago and supposed to follow cardiology next week. On presentation, his heart rate was in 140s, sinus tachycardia, currently resting and his heart rate is stable. sob on exertion going on for the last 6 months and also having chest pain since last 2 weeks on and off, comes and goes on its own. We will monitor on tele floor. Serial cardiac enzymes, consult cardiology for further recommendations. 2. Hyperlipidemia. Continue statin. 3. Hyperglycemia, not on any medications. We will follow hemoglobin A1c levels. 4. History of gastroesophageal reflux disease. Continue PPI. 5. Deep vein thrombosis prophylaxis, SCDs and TEDs for now. 6. Disposition: Observation in tele floor level 1 full code. Hospital Course SOB/PALPITATIONS/CHEST PAIN-Angina Equivalent No history of COPD or emphysema. Serial CE negative for any ACS . History of bioprosthetic aortic valve. Had echocardiogram done couple of days ago and supposed to follow cardiology a week later . Sinus tachycardia on presentation. No more pain after admission Seen by cardiology and decided for cardiac cath on 10/23/16 NO cardiac cath today due to lack of Latex free catheter as the patient is allergic to latex Will schedule Cardiac Cath on 10/26 Further recommendation following the cardiac cath Hyperlipidemia. Continue statin.[id number], HDL 30,TG 196, chol 171. Hyperglycemia, not on any medications. We will follow hemoglobin A1c-6.5 History of gastroesophageal reflux disease. Continue PPI. Deep vein thrombosis prophylaxis, SCDs and TEDs -ambulant Disposition: Discharge home today Cardiac Cath on 10/26/16 Patient will schedule appointment with PCP Total time spent on discharge = This includes examination of the patient, discharge planning, medication reconciliation, and communication with other providers. Discharge Instructions Admission Reason for Admission: Shortness Of Breath; Tachycardia Discharge Discharge Diagnosis / Problem: Chest pain,No ACS,Scheduled cardiac Cath on Discharge Goals Goal(s): Prevent Disease Progression Activity Recommendations Activity Limitations: per Instructions/Follow-up section Do not go back to work before the cardiac Cath . Instructions / Follow-Up Instructions / Follow-Up Please make an appointment with your PCP following the Cardiac cath Current Hospital Diet Patient's current hospital diet: Diabetes Type 2 Diet, AHA Diet (Heart Healthy) Discharge Diet Recommended Diet: AHA Diet (Heart Healthy) Pending Studies Studies pending at discharge: no Laboratory Results Hemoglobin A1c Test 10/22/16 04:45 Range/Units Estimated Average Glucose 140 mg/dl Hemoglobin A1c 6.5 H 4.5-5.6 % Lipid Panel Test 10/22/16 04:45 Range/Units Triglycerides Level 196 H 0-150 mg/dl Cholesterol Level 171 0-200 mg/dl HDL Cholesterol 30 mg/dl Cholesterol/HDL Ratio 5.7 LDL Cholesterol, Calculated 102 mg/dl Medical Emergencies . Who to Call and When: Medical Emergencies: If at any time you feel your situation is an emergency, please call 911 immediately. . Non-Emergent Contact Non-Emergency issues call your: Primary Care Provider . Past History Medical & Surgical History: (1) Bicuspid aortic valve (2) ESOPHAGEAL STRICTURE (3) ESOPHAGEAL REFLUX (4) Shortness of breath (5) Tachycardia (6) Moderate aortic stenosis (7) Hyperlipidemia (8) History of hypertension . "Provider Documentation" section prepared by Sulaiman Mares. VTE Core Measure Inpt VTE Proph given/why not?: SCD's <Electronically signed by Sulaiman Mares M.D.> Additional Copies To Michael Cisneros D.O.
[2016-10-26 08:48] LABS: ISTAT ARTERIAL BLOOD GAS HCO3 24 meq/L (19-24); ISTAT ARTERIAL BLOOD GAS PCO2 44 mmHg (35-46); ISTAT ARTERIAL BLOOD GAS PO2 66 mmHg (80-95); ISTAT ARTERIAL BLOOD GAS pH 7.34 (7.35-7.45); ISTAT CARBON DIOXIDE 25 mEq/l (24-31)
[2016-10-26 08:48] LABS: ISTAT ARTERIAL BLOOD GAS HCO3 24 meq/L (19-24); ISTAT ARTERIAL BLOOD GAS PCO2 47 mmHg (35-46); ISTAT ARTERIAL BLOOD GAS PO2 34 mmHg (80-95); ISTAT ARTERIAL BLOOD GAS pH 7.33 (7.35-7.45); ISTAT CARBON DIOXIDE 26 mEq/l (24-31)
[2016-10-26 08:48] LABS: ISTAT ARTERIAL BLOOD GAS HCO3 25 meq/L (19-24); ISTAT ARTERIAL BLOOD GAS PCO2 48 mmHg (35-46); ISTAT ARTERIAL BLOOD GAS PO2 39 mmHg (80-95); ISTAT ARTERIAL BLOOD GAS pH 7.33 (7.35-7.45); ISTAT CARBON DIOXIDE 27 mEq/l (24-31)
[2017-06-19] MEDS ORDERED: METO25TA3 PO (11:36)
[2017-06-19] MEDS ORDERED: MULT-506 PO (11:36)
== END 2016-10-23 14:30 | disposition home or self-care (01) | DRG 309 ==
LOC: ENRESERVTM → CANRESERV → ENRESERVDT → C.EDA 09:22 → C.2T 13:08
PROVIDERS: ADMIT Internal Medicine; ATTEND Internal Medicine
DX: R00.0 Tachycardia, unspecified (principal); Q23.1 Congenital insufficiency of aortic valve; R07.9 Chest pain, unspecified; E78.5 Hyperlipidemia, unspecified; Z87.891 Personal history of nicotine dependence; K21.9 Gastro-esophageal reflux disease without esophagitis; Z91.040 Latex allergy status; R73.9 Hyperglycemia, unspecified; Z53.8 Procedure and treatment not carried out for other reasons

== ENCOUNTER → 2016-10-26 | Day surgery (SDC) | payer OTHER ==
[~2016-10-26] VITALS: Ht 167.6 cm; Wt 87.0 kg
[~2016-10-26] MED LIST changes: +ACETAMINOPHEN 325 MG TAB PO PRN; +ATOR-22 PO; +ATROPINE SULFATE 0.1 MG/ML 5ML SYR IV PRN; -CHOL1TAB76 PO; +ESOM20CA PO; +FENTANYL CITRATE INJ 50 MCG/1 ML 2 ML VIAL ONE; -FEXO1TAB46 PO; -FLUT0.15 NAE; +METO25TA3 PO; -MICO2POW EXT; +MIDAZOLAM HCL 1 MG/ML 2ML VIAL ONE; -MISCCAP80 PO; +MULT-506 PO; -MULT-94 PO; +NTRSLP4 SL; +ONDANSETRON INJ 2 MG/ML 2 ML VIAL IV PRN; +SODIUM CHLORIDE 0.9% 1000ML 1,000 ML IV SCH; +SODIUM CHLORIDE 0.9% 1000ML 250 ML IV PRN
[2016-10-26 07:27] VITALS: BP 157/84; PULSE 82; TEMP 36.4; O2SAT 97; Ht 167.6 cm; Wt 87.0 kg
--- NOTE | 2016-10-26 08:57 | History & Physical Bridge Note ---
H&P Re-Evaluation Bridge Note: I have examined the patient, reviewed the History & Physical and in the interval since the performance of the History & Physical I have noted the following changes of clinical significance: No changes noted
--- NOTE | 2016-10-26 09:08 | Cardiac Catheterization ---
Procedure Note Procedure Date Oct 26, 2016. Pre-Procedure Diagnosis Valvular Disease AUC Score 9 Post-Procedure Diagnosis Normal Coronary Arteries, Normal LV Systolic Function, Normal Intracardiac Pressures, Cardiothoracic Finding (moderate aortic stenosis and aortic insufficiency) Procedure(s) Performed Coronary Angiography, Left Heart Cath, Right Heart Cath, LV Angiography, Aortography Roving Sizer Dr. Jacobs Baker Bench(s) None Estimated Blood Loss None Medication(s) Versed, Lidocaine 1% Summary of Findings Moderate aortic stenosis and aortic insufficiency, normal coronaries, normal right heart pressures Hemodynamics Rest Ao: 130/72 Final Ao: 158/76 LV: 118/12 RA: 7 RV: 29/10 PA: 25/13 PW: 10 Recommendations Medical therapy and/or Counseling Specimens None Radiation Exposure (mGy) 423 Contrast (mls) 152 Fluids (cc crystalloids) 100 Procedural Complication(s) None Disposition Rn Transitional Holding/Recovery ACC Data Cardiac Status Clinical evaluation leading to the procedure CAD Presntation: Sx unlikely to be ischemic Anginal Classification: CCS I Heart Failure: No Cardiogenic Shock w/in 24Hrs: No Cardiac Arrest w/in 24Hrs: No Imaging studies past 6 months: Yes Stress studies past 6 months: No Standard Exercise Stress Test: No Stress Echocardiogram: No Stress Testing w/SPECT MPI: No Cardiac CTA: No Coronary Anatomy Dominant: Right Left Main (% Stenosis): Normal LAD (% Stenosis): Normal Circumflex (% Stenosis): Normal RCA (% Stenosis): Normal Left Ventricular Angiography EF (%): 60 Mitral Regurgitation: None Aortography Aortic Regurgitation: 2+ Diagnostic Status: Elective Closure Device Percutaneous Entry Location: Femoral Closure Device: Mynx Recommendations: Medical therapy and/or Counseling
--- NOTE | 2016-10-26 09:10 | Discharge Instructions ---
Discharge Instructions Procedure Procedure Date: Oct 26, 2016. Reason for Visit: Chest Pain * To Do*. Discharge Discharge Date: Oct 26, 2016. Discharge Diagnosis: Bicuspid aortic valve Last Recorded Wt (Kilograms): 87 Anesthesia Post Anesthesia Instructions: If you have had General Anesthesia or IV Sedation: * Do not drive today. * Resume driving when surgeon permits. * Do not make important decisions or sign legal documents today. * Call surgeon for: 1. Temperature elevations greater than 101 degrees F. 2. Uncontrollable pain. 3. Excessive bleeding. 4. Persistent nausea and vomiting. 5. Medication intolerance (nausea, vomiting or rash). * For nausea and vomiting use only clear liquids such as: tea, soda, bouillon until nausea subsides, then gradually increase diet as tolerated. * If you have any concerns or questions, call your surgeon's office. If physician is unavailable and it is an emergency, call 911 or go to the nearest emergency room. Instructions Activity Recommendations: limitations Allergies: Coded Allergies: Ciprofloxacin (Verified Allergy, Mild, RASH, 10/21/16) Cephalexin (Verified Allergy, Unknown, RASH, 10/21/16) Latex (Verified Adverse Reaction, Mild, "GAVE STRANGE SENSATION TO SKIN", 10/21/16) Uncoded Allergies: TOPICAL STEROID (Allergy, Unknown, RASH AND FEELS LIKE SOMTHING IN THROAT, 01/19/15) Provider Instructions ACTIVITY RECOMMENDATIONS: It is common to feel weak and fatigue for a few days. * Do not drive or operate any motorized equipment for the next three days. * Limit stair usage (2 or 3 trips a day only) for the next three days. * Do not lift anything heavier than 10 pounds for the next three days. * Do not engage in vigorous exercise or any sports for the next five days. * You may shower the day after your procedure, but do not immerse the area for three days. Cleanse the site gently with soap and water. SPECIAL CARE INSTRUCTIONS: * You may replace the pressure dressing or band-aid the morning after the procedure. * After your procedure, it is normal to have a small bruise or small lump at the site. Examine your site daily for any change in the bruise or lump, redness, swelling, drainage or numbness. Notify your doctor if any change. BLEEDING: * If there is a small amount of bleeding at the site, lie down and apply firm pressure with a clean cloth for ten minutes. When the bleeding stops, lie quietly keeping the procedure limb straight for six hours. Notify your doctor as soon as possible. * If the bleeding does not stop after ten minutes or if there is a large amount of bleeding or spurting, call 911 immediately. Continue to lie down and hold firm pressure until help arrives. SKIN IRRITATION: * You may experience some redness and/or swelling in the area where radiation was administered. If any skin irritation occurs, please contact your family physician. FOLLOW UP VISIT: Keep any scheduled doctor appointments. Follow Up Follow-up with: Office will call with follow-up Radha Hartmann Recommendations: Call your doctor if: * Temperature above 101 degrees * Pain not relieved by pain medicine ordered * There is increased drainage or redness from any incision * You have any unanswered questions or concerns. Your Doctors Instructions noted above were prepared by provider Sukumar Jacobs. Patient Signature Section: Patient Instructions Signature Page Clayton Rodriges Patient (or Guardian) Signature/Date: I have read and understand the instructions given to me by my caregivers. Caregiver/RN/Doctor Signature/Date: The above-named patient and/or guardian has received patient instructions on this date. + Original Patient Signature Page (only) stays with chart. Please make copy for patient.
[2016-10-26 12:30] VITALS: BP 150/83; PULSE 78; O2SAT 98
--- NOTE | 2016-10-26 18:54 | CARDIAC CATH REPORT ---
PROCEDURES: 1. Left heart catheterization. 2. Right heart catheterization. 3. Coronary angiography. 4. Left ventriculography. 5. Aortography. HISTORY OF PRESENT ILLNESS: The patient is a 56-year-old male with a history of a bicuspid aortic valve with evidence of aortic stenosis by echocardiography, who has been having activity related dyspnea. PROCEDURE SUMMARY: After informed consent was obtained, the patient was taken to the cardiac catheterization lab where he was prepped and draped in the usual manner for a right transfemoral approach. Preformed 5-Libyan diagnostic catheter was utilized for the coronary angiograms. A 5-Libyan pigtail catheter was utilized to cross the aortic valve and to perform a left ventriculogram as well as aortogram. A [place]-Luciano catheter was utilized for right heart pressures and cardiac outputs. Following the procedure, the arterial site was closed with a Mynx device and the patient was taken to the holding area of the medical laboratory manager in stable condition. HEMODYNAMIC DATA: Right atrial pressure is a mean of 7 mmHg, right ventricular pressure is 29/10 mmHg, pulmonary artery pressure is 25/13 mmHg, pulmonary capillary wedge pressure is a mean of 10 mmHg, left ventricular pressure is 118/12 mmHg, central aortic pressure is 131/72 mmHg. Cardiac output by thermal dilution is 5.4 liters per minute. The mean gradient across the aortic valve is 3.76 mmHg. The estimated aortic valve area by thermodilution cardiac output is 3.75 cm2. LEFT VENTRICULOGRAM: The left ventricle is of normal size with normal systolic function. The mitral valve is competent. AORTOGRAM: The aortic root and ascending aorta are prominent. There is evidence of calcification of the mitral valve and estimated moderate aortic insufficiency. CORONARY ANGIOGRAPHY: Selective injections of the left coronary artery revealed the left main trunk to be widely patent and within normal limits. The LAD extends to the apex of the heart. The LAD system is smooth in appearance, widely patent, and within normal limits. The left circumflex artery consists of 2 high ramus branches and then a third posterior marginal branch which is small. The left circumflex artery is smooth in appearance, widely patent, and within normal limits. Selective injections of the right coronary artery revealed to be dominant. The right coronary artery is smooth in appearance, widely patent, and within normal limits. SUMMARY: The patient has a bicuspid aortic valve with moderate aortic insufficiency and no significant aortic stenosis. The coronary arteries are normal. Left ventricular function is normal. Recommendations are for continued medical management of the patient's bicuspid aortic valve.
== END | disposition home or self-care (01) ==
LOC: C.CATH 07:03
PROVIDERS: ATTEND Internal Medicine Interventional Cardiology
DX: I35.0 Nonrheumatic aortic (valve) stenosis (principal); Q23.1 Congenital insufficiency of aortic valve; I70.0 Atherosclerosis of aorta; E78.5 Hyperlipidemia, unspecified; K21.9 Gastro-esophageal reflux disease without esophagitis; K22.2 Esophageal obstruction; Z98.890 Other specified postprocedural states

== ENCOUNTER → 2017-01-23 | Outpatient (CLI) | payer OTHER ==
[~2017-01-23] MED LIST changes: -ACETAMINOPHEN 325 MG TAB PO PRN; -ATROPINE SULFATE 0.1 MG/ML 5ML SYR IV PRN; -FENTANYL CITRATE INJ 50 MCG/1 ML 2 ML VIAL ONE; +HYDR-5688 PO; -MIDAZOLAM HCL 1 MG/ML 2ML VIAL ONE; -ONDANSETRON INJ 2 MG/ML 2 ML VIAL IV PRN; +RANI150T3 PO; -SODIUM CHLORIDE 0.9% 1000ML 1,000 ML IV SCH; -SODIUM CHLORIDE 0.9% 1000ML 250 ML IV PRN
[2017-01-23 18:21] LABS: HEPATITIS B AB POS
== END | disposition home or self-care (01) ==
LOC: C.LAB1850 16:08
PROVIDERS: ATTEND Preventive Medicine Occupational Medicine
DX: Z77.21 Contact with and (suspected) exposure to potentially hazardous body fluids (principal)

== ENCOUNTER → 2017-06-14 | Outpatient (CLI) | payer OTHER ==
[2017-06-14 12:12] LABS: BASO % 0.3 %; BASO ABS # 0.02 K/uL (0-0.2); COMPLETE YES; EOS % 1.8 %; HEMATOCRIT 45.2 % (42-52); IG% 0.5 %; LYMPH ABS # 2.69 K/uL (1.2-3.4); MEAN CELL VOLUME 84.2 fL (80-100); MEAN CORPUSCULAR HEMOGLOBIN 29.1 pg (25-34); MEAN CORPUSCULAR HGB CONC 34.5 g/dl (32-36); MEAN PLATELET VOLUME 9.1 fL (7.4-10.4); MONO % 4.4 %; PLATELET COUNT 194 K/uL (130-400); RED BLOOD COUNT 5.37 M/uL (4.7-6.1); WHITE BLOOD COUNT 7.69 K/uL (4.8-10.8)
[2017-06-14 12:41] LABS: BLOOD UREA NITROGEN 16 mg/dl (7-18); BUN/CREATININE RATIO 15.5 (10-20); CALCIUM 9.3 mg/dl (8.5-10.1); CARBON DIOXIDE 28 mmol/L (21-32); CHLORIDE 104 mmol/L (98-107); GLUCOSE 116 mg/dl (70-99); POTASSIUM 4.2 mmol/L (3.5-5.1); SODIUM 140 mmol/L (136-145)
== END | disposition home or self-care (01) ==
LOC: C.CPL 10:44
PROVIDERS: ATTEND Orthopaedic Surgery
DX: Z01.818 Encounter for other preprocedural examination (principal); S83.212A Bucket-handle tear of medial meniscus, current injury, left knee, initial encounter; X58.XXXA Exposure to other specified factors, initial encounter

== ENCOUNTER → 2017-06-28 | Day surgery (SDC) | payer OTHER ==
[2017-06-19 11:37] VITALS: Ht 167.6 cm; Wt 85.5 kg
[~2017-06-28] VITALS: Ht 167.6 cm; Wt 85.5 kg
[~2017-06-28] MED LIST changes: -ASPEC81 PO; +ATROPINE SULFATE 0.1 MG/ML 5ML SYR IV PRN; +CLINDAMYCIN PHOS 150 MG/ML 2 ML VIAL IV SCH; +DEXAMETHASONE SOD INJ 4 MG/ML VIAL ONE; +EpHEDrine SULFATE INJ 50 MG/ML AMP IV PRN; +EpINEphrine INJ 1MG/ML AMP 1 MG/ML AMP ONE; +FENTANYL CITRATE INJ 50 MCG/1 ML 2 ML VIAL IV PRN; +FENTANYL CITRATE INJ 50 MCG/1 ML 2 ML VIAL ONE; +HYDROCODONE/ACETAMOPHEN 5/325MG TAB PO PRN; +KETOROLAC TROMETHAMINE 30 MG/ML VIAL ONE; +LACTATED RINGER'S 1000ML 1,000 ML IV SCH; +LIDOCAINE HCL 2% 2 ML VIAL (20MG/ML) ONE; +MIDAZOLAM HCL 1 MG/ML 2ML VIAL ONE; -NTRSLP4 SL; +ONDANSETRON INJ 2 MG/ML 2 ML VIAL IV PRN; +ONDANSETRON INJ 2 MG/ML 2 ML VIAL ONE; +PROMETHAZINE HCL INJ 6.25 MG in SODIUM CHLORIDE 0.9% 50ML 50 ML IV PRN; +PROPOFOL IV EMULSION 10 MG/ML 20 ML VIAL IV ONE; +ROPIVACAINE 0.5% 5 MG/ML 30 ML VIAL ONE; +SODIUM CHLORIDE 0.9% 1000ML 1,000 ML IV SCH
--- NOTE | 2017-06-28 09:20 | [facility] Post Operative Brief Note ---
Immediate Operative Summary Operative Date Jun 28, 2017. Pre-Operative Diagnosis Left knee medial meniscus tear Post-Operative Diagnosis Same as preop Procedure(s) Performed Left Knee Arthroscopy, Partial Medial Meniscectomy, Chondroplasty Surgeon Dr. Hankins Diplomatic Interpreter/Translator Surgeon(s) Gulshan Dangelo PA-C Estimated Blood Loss 5 mL Findings as above Specimens None Complication(s) None Disposition Recovery Room / PACU
--- NOTE | 2017-06-28 09:22 | Discharge Instructions-SurgCtr ---
Discharge Instructions Date of Service Jun 28, 2017. Visit Reason for Visit: Bucket Handle Tear Of Medial Meniscus Left Knee Discharge Discharge Diagnosis / Problem: SAME ABOVE Discharge Goals Goal(s): Decrease discomfort, Improve function Activity Recommendations Activity Limitations: as noted below Lifting Limitations: gradually increase as tolerated Exercise/Sports Limitations: gradually increase as tolerated Shower/Bathe: tomorrow Anesthesia . Post Anesthesia Instructions: If you have had General Anesthesia or IV Sedation: * Do not drive today. * Resume driving when surgeon permits. * Do not make important decisions or sign legal documents today. * Call surgeon for: 1. Temperature elevations greater than 101 degrees F. 2. Uncontrollable pain. 3. Excessive bleeding. 4. Persistent nausea and vomiting. 5. Medication intolerance (nausea, vomiting or rash). * For nausea and vomiting use only clear liquids such as: tea, soda, bouillon until nausea subsides, then gradually increase diet as tolerated. * If you have any concerns or questions, call your surgeon's office. If physician is unavailable and it is an emergency, call 911 or go to the nearest emergency room. . Instructions / Follow-Up Instructions / Follow-Up MEDICATIONS: * Resume previous medications unless instructed otherwise by your surgeon. * Always take pain medication on a full stomach or with food to avoid upset stomach. * Do not drink alcohol or drive while taking narcotics. * Ibuprofen or Tylenol may be taken if narcotic not needed. SPECIAL CARE INSTRUCTIONS: __ None _X_ Keep extremity elevated and iced x 48 hours; apply ice 20-30 minutes 8-10 times/day. May remove at night. _X_ Crutches _X_ May discard when able __ Brace/Post-op shoe __ 24 hrs/day __ Remove at night _X_ Dressing __ Maintain until seen in office, may shower with plastic over site _X_ Remove dressings in 24-48 hours and then may shower _X_ Cover incisions with band-aids after showering __ Do not remove steri-strips Call physician if chills or temperature rises above 102 degrees or pain unrelieved by prescribed pain medications. Office [phone] Diet Recommendations Home Diet: no limitations Fluid Restriction: None Procedures Procedures Performed: Left Knee Arthroscopy, Partial Medial Meniscectomy, Chondroplasty Pending Studies Studies pending at discharge: no Work Instructions Return To Work: after follow-up Medical Emergencies . Who to Call and When: Medical Emergencies: If at any time you feel your situation is an emergency, please call 911 immediately. . Non-Emergent Contact Non-Emergency issues call your: Primary Care Provider Call Non-Emergent contact if: you have a fever, temperature is above 101.5 . . "Provider Documentation" section prepared by Gulshan Dangelo. .
--- NOTE | 2017-06-28 09:37 | OPERATIVE REPORT ---
DATE OF OPERATION: 06/28/2017 PREOPERATIVE DIAGNOSIS: Medial meniscal tear of the left knee. POSTOPERATIVE DIAGNOSIS: Medial meniscal tear of the left knee with chondromalacia of the patella. PROCEDURE: Left knee diagnostic arthroscopy with chondroplasty and partial medial meniscectomy. SURGEON: Dr. Yong Hankins. [employer]OP INSURANCE CLAIMS ADJUSTER: Juanjose Dangelo PA-C, whose assistance was necessary for positioning the leg and helping with instrumentation. ANESTHESIA: General. COMPLICATIONS: None. CONDITION: Stable to PACU. INDICATIONS FOR PROCEDURE: Clayton is a pleasant 57-year-old male who twisted his left knee a month ago. 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 He had significant medial compartment pain. He saw my partner and MRI showed a radial medial meniscal tear. After failing a brief course of conservative treatment, he elected to undergo arthroscopy. DESCRIPTION OF PROCEDURE: On 06/28/2017, he arrived at [facility] for the above procedure. He was seen in the preoperative holding area and the operative extremity was identified and signed. He was an appropriate antibiotic, taken back to the operating room, laid on the table in supine position and put under general anesthesia. The left knee was then prepped and draped in sterile fashion. Time-out was done and the patient and operative extremity was properly identified. A scope was introduced in the lateral parapatellar portal. Diagnostic arthroscopy showed no loose bodies in the suprapatellar pouch. There was some grade 3 chondromalacia and some fraying of the cartilage on the undersurface of the lateral side of the patella. There was no cartilage damage in the trochlea. The patella tracked slightly laterally. There were no plica bands. The scope was then brought into the medial compartment and a medial parapatellar portal was made under direct visualization. There was no damage to the medial row, but was a radial tear in the posterior aspect of the meniscus. A probe was used to probe the tear. A shaver and a biter were then used to remove the unstable meniscal fragment. Final pictures were then taken with the meniscal fragment removed. The scope was then brought into the trochlea. ACL and PCL were intact. The scope was brought into the lateral compartment. There was no cartilage or meniscus damage laterally. The scope was then placed in the medial parapatellar portal. Repeat diagnostic arthroscopy showed no additional pathology. The knee was then brought into full extension and a shaver was used to do a complete acromioplasty of the undersurface of the patella. Final diagnostic arthroscopy showed no additional pathology. Arthroscopic instrument removed from the knee. Portal sites were closed with 3-0 nylon. The knee was then injected with 30 mL of ropivacaine with epinephrine and Toradol. He was then placed in a soft compressive dressing, extubated, transferred to a [facility] and taken to the postanesthesia care unit in stable condition. He tolerated the procedure well. I attest to the content of the Intraoperative Record and any orders documented therein. Any exception s are noted below.
[2017-06-28 10:25] VITALS: BP 128/71; PULSE 71; O2SAT 97
--- NOTE | 2017-06-28 10:44 | Anesthesia Progress Nt - [facility] ---
Anesthesia Post Op Note Date & Time Jun 28, 2017 at 10:43 Vital Signs Pain Intensity: 2 Vital Signs Past 12 Hours Date Time Temp Pulse Resp B/P (MAP) Pulse Ox O2 Delivery O2 Flow Rate FiO2 06/28/17 10:25 71 16 128/71 (90) 97 Room Air 06/28/17 10:00 36.5 66 16 115/70 (85) 97 Room Air 06/28/17 09:50 123/71 06/28/17 09:46 68 7 06/28/17 09:46 68 7 93 06/28/17 09:45 130/75 06/28/17 09:44 36.4 68 16 130/75 97 Room Air 06/28/17 09:43 67 15 98 06/28/17 09:43 69 15 06/28/17 09:40 138/79 06/28/17 09:38 68 12 06/28/17 09:38 68 12 98 06/28/17 09:37 71 13 06/28/17 09:37 72 13 100 06/28/17 09:35 132/71 06/28/17 09:32 73 17 06/28/17 09:32 73 17 100 06/28/17 09:31 134/77 06/28/17 09:27 76 16 06/28/17 09:27 77 16 99 06/28/17 09:25 115/77 06/28/17 09:22 83 7 132/75 98 06/28/17 09:22 82 7 06/28/17 09:22 36.9 78 12 132/75 98 Diffusion Mask 6 06/28/17 07:08 36.4 67 18 152/82 (105) 98 Room Air Notes Mental Status: alert / awake / arousable, participated in evaluation Pt Amnestic to Procedure: Yes Nausea / Vomiting: adequately controlled Pain: adequately controlled Airway Patency, RR, SpO2: stable & adequate BP & HR: stable & adequate Hydration State: stable & adequate Anesthetic Complications: no major complications apparent
== END | disposition home or self-care (01) ==
LOC: X.SURG 06:41
PROVIDERS: ATTEND Orthopaedic Surgery
DX: S83.242A Other tear of medial meniscus, current injury, left knee, initial encounter (principal); X50.1XXA Overexertion from prolonged static or awkward postures, initial encounter; M94.20 Chondromalacia, unspecified site; I35.1 Nonrheumatic aortic (valve) insufficiency; E78.00 Pure hypercholesterolemia, unspecified; K21.9 Gastro-esophageal reflux disease without esophagitis; K44.9 Diaphragmatic hernia without obstruction or gangrene; Z79.899 Other long term (current) drug therapy

== ENCOUNTER → 2018-04-23 | Outpatient (CLI) | payer OTHER ==
[~2018-04-23] MED LIST changes: -ATROPINE SULFATE 0.1 MG/ML 5ML SYR IV PRN; -CLINDAMYCIN PHOS 150 MG/ML 2 ML VIAL IV SCH; -DEXAMETHASONE SOD INJ 4 MG/ML VIAL ONE; -EpHEDrine SULFATE INJ 50 MG/ML AMP IV PRN; -EpINEphrine INJ 1MG/ML AMP 1 MG/ML AMP ONE; -FENTANYL CITRATE INJ 50 MCG/1 ML 2 ML VIAL IV PRN; -FENTANYL CITRATE INJ 50 MCG/1 ML 2 ML VIAL ONE; -HYDR-5688 PO; -HYDROCODONE/ACETAMOPHEN 5/325MG TAB PO PRN; -KETOROLAC TROMETHAMINE 30 MG/ML VIAL ONE; -LACTATED RINGER'S 1000ML 1,000 ML IV SCH; -LIDOCAINE HCL 2% 2 ML VIAL (20MG/ML) ONE; -METO25TA3 PO; +METO25TA56 PO; -MIDAZOLAM HCL 1 MG/ML 2ML VIAL ONE; +MISCCAP80 PO; +OMEG10007 PO; -ONDANSETRON INJ 2 MG/ML 2 ML VIAL IV PRN; -ONDANSETRON INJ 2 MG/ML 2 ML VIAL ONE; +OXYC-57 PO; -PROMETHAZINE HCL INJ 6.25 MG in SODIUM CHLORIDE 0.9% 50ML 50 ML IV PRN; -PROPOFOL IV EMULSION 10 MG/ML 20 ML VIAL IV ONE; -ROPIVACAINE 0.5% 5 MG/ML 30 ML VIAL ONE; -SODIUM CHLORIDE 0.9% 1000ML 1,000 ML IV SCH
--- NOTE | 2018-04-23 14:10 | DIAGNOSTIC IMAGING REPORT ---
KUB CLINICAL HISTORY: Nephrolithiasis. FINDINGS: 2 AP supine abdominal radiographs are correlated with abdominal CT dated 04/09/2018. There is a nonobstructed abdominal bowel gas pattern noting moderate colonic fecal retention. There is no radiographic evidence of nephrolithiasis. A small phlebolith is noted in the left hemipelvis. The bony structures appear intact. There is mild lumbar levocurvature. IMPRESSION: 1. There is no radiographic evidence of nephrolithiasis. 2. The distal right ureteral stones seen by CT on 04/09/2018 was not visualized. Electronically signed by: Jose Ramon Sal M.D. 04/23/2018 2:09 PM Dictated Date/Time: 04/23/2018 2:06 PM
== END | disposition home or self-care (01) ==
LOC: C.RAD 13:00
PROVIDERS: ATTEND Urology
DX: N20.0 Calculus of kidney (principal)

== ENCOUNTER 2019-06-09 15:06 | Inpatient (IN) ==
[~2019-06-09 15:06] MED LIST changes: +ALTEPLASE, RECOMBINANT 100 MG VIAL IV ONE; -ATOR-22 PO; -ESOM20CA PO; -METO25TA56 PO; -MISCCAP80 PO; -MULT-506 PO; -OMEG10007 PO; -OXYC-57 PO; -RANI150T3 PO
[2019-06-09] MEDS ORDERED: SODIUM CHLORIDE 0.9% 1000ML 1,000 ML IV ONE (15:10)
--- NOTE | 2019-06-09 15:34 | CT Scan Report ---
CT head/brain wo con CLINICAL HISTORY: 59 years-old Male presenting with Stroke evaluation, left-sided weakness. TECHNIQUE: Multidetector CT imaging of the head was performed without the use of intravenous contrast . IV contrast: None. One or more dose lowering techniques were used consistent with the principles of ALARA (as low as reasonably achievable), including automatic exposure control, mA or kV adjustment t o individual patient size, and/or use of iterative reconstruction. COMPARISON: 05/22/2008. CT DOSE (mGy.cm): The estimated cumulative dose is 2101.71. FINDINGS: Resilient Tile Installer topogram: Unremarkable. Ventricles and sulci normal in size. No hemorrhage. Brain parenchyma normal in appearance with preser mita ramos-white differentiation. No acute territorial infarct. No mass effect or midline shift. No ext ra-axial fluid collection. Paranasal sinuses and mastoid air cells clear. Calvarium intact. IMPRESSION: 1. No acute intracranial abnormality. Electronically signed by: Manjeet aRmirez M.D. 06/09/2019 3:32 PM
[2019-06-09 15:36] LABS: Basophils # (auto) 0.02 K/uL (0-0.2); Basophils % (auto) 0.2 %; Eosinophils # (auto) 0.13 K/uL (0-0.5); Eosinophils % (auto) 1.4 %; Hematocrit (blood only) 41.6 % (42-52); Hemoglobin 14.1 g/dL (14.0-18.0); Immature Granulocytes # (auto) 0.03 K/uL (0.00-0.02); Immature Granulocytes % (auto) 0.3 %; Lymphocytes # (auto) 3.66 K/uL (1.2-3.4); Lymphocytes % (auto) 40.6 %; Mean Corpuscular Hgb Conc 33.9 g/dL (32-36); Mean Corpuscular Volume 85.6 fL (80-100); Monocytes # (auto) 0.61 K/uL (0.11-0.59); Monocytes % (auto) 6.8 %; Neutrophils # (auto) 4.57 K/uL (1.4-6.5); Neutrophils % (auto) 50.7 %; Platelet Count 184 K/uL (130-400); RDW Coefficient of Variation 13.3 % (11.5-14.5); RDW Standard Deviation 41.3 fL (36.4-46.3); Red Blood Count 4.86 M/uL (4.7-6.1); White Blood Count 9.02 K/uL (4.8-10.8)
--- NOTE | 2019-06-09 15:36 | CT Scan Report ---
CT angio head w con CLINICAL HISTORY: 59 years-old Male presenting with left sided numbness, stroke alert. TECHNIQUE: Multidetector CT angiography of the head was performed after the administration of intrave nous contrast. 3-D volumetric and/or maximum intensity projection (MIP) images were subsequently dorothea nstructed for review. IV contrast: Optiray 320. One or more dose lowering techniques were used consis tent with the principles of ALARA (as low as reasonably achievable), including automatic exposure con trol, mA or kV adjustment to individual patient size, and/or use of iterative reconstruction. COMPARISON: Noncontrast CT head from 2007. CT DOSE (mGy.cm): The estimated cumulative dose is 2101.71 mGy.cm. FINDINGS: Steam Drier Operator topogram: Unremarkable. Anterior circulation: Atherosclerosis of the cavernous segments of the internal carotid arteries. Int racranial portions of the internal carotid arteries patent to the level of the termini. Anterior cere bral arteries patent. Middle cerebral arteries patent. Anterior communicating artery patent. Posterior circulation: Right dominant vertebral artery. Intradural portions of the vertebral arteries patent. Posterior inferior cerebellar arteries patent. Basilar artery patent. Anterior inferior cere bellar arteries poorly visualized. Superior cerebellar arteries patent. Posterior cerebral arteries p atent. Posterior communicating arteries hypoplastic or aplastic. Dural venous sinuses: Patent. Other: Allowing for the phase of contrast, brain parenchyma within normal limits. Calvarium intact. IMPRESSION: 1. No evidence of aneurysm, focal vessel occlusion, or significant stenosis of the intracranial elsa blanca. Electronically signed by: Manjeet Ramirez M.D. 06/09/2019 3:35 PM
--- NOTE | 2019-06-09 15:41 | CT Scan Report ---
NECK CTA HISTORY: left sided numbness TECHNIQUE: Multiaxial CT images of the neck were performed following the intravenous administration o f contrast to evaluate the major cervical vessels. Maximum intensity projection images were also obta ined. All measurements were calculated based on NASCET criteria. A dose lowering technique was utili zed adhering to the principles of ALARA. COMPARISON STUDY: None. FINDINGS: The aortic arch and proximal great vessels are widely patent. There is no significant sten osis, occlusion, or dissection identified within the bilateral common carotid, internal carotid, or v ertebral arteries. [id number] atherosclerotic plaque within the bilateral carotid bulbs. Hypopl astic left vertebral artery. IMPRESSION: No significant stenosis, occlusion, or dissection identified within the carotid or vertebral arteries . Electronically signed by: Richard Parker M.D. 06/09/2019 3:39 PM
[2019-06-09 15:46] LABS: INR 1.1 (0.9-1.1); Partial Thromboplastin Time 27.3 Seconds (21.0-31.0)
[2019-06-09 15:53] LABS: Alanine Aminotransferase 48 U/L (12-78); Albumin Level 3.2 gm/dl (3.4-5.0); Aspartate Aminotransferase 17 U/L (15-37); BUN Creatinine Ratio 14.7 (10-20); Blood Urea Nitrogen 15 mg/dl (7-18); Calcium 8.5 mg/dl (8.5-10.1); Carbon Dioxide 25 mmol/L (21-32); Chloride 102 mmol/L (98-107); Creatinine Clr Calc Pharmacy 78.4 ml/min; Est GFR (African American) 92.8; Est GFR (Non-African American) 80.1; Glucose 140 mg/dl (70-99); Magnesium 1.9 mg/dl (1.8-2.4); Potassium 3.3 mmol/L (3.5-5.1); Sodium 135 mmol/L (136-145)
[2019-06-09] MEDS ORDERED: LABETALOL HCL IV 5 MG/ML 20ML IV ONE (15:53)
[2019-06-09] MEDS ORDERED: LABETALOL HCL IV 5 MG/ML 20ML IV STA ×2 (15:53→16:11)
[2019-06-09] MEDS ORDERED: TPA for Stroke IV STA (15:53)
[2019-06-09 15:58] LABS: Albumin Globulin Ratio 0.8 (0.9-2); Alkaline Phosphatase 108 U/L (45-117); Bilirubin,Total 0.4 mg/dl (0.2-1); Globulin 3.9 gm/dl (2.5-4.0); Total Protein 7.1 gm/dl (6.4-8.2); Troponin I < 0.015 ng/ml (0-0.045)
[2019-06-09] MEDS ORDERED: Alteplase Bolus 7.4 MG in SYRINGE 0 ML IV ONE (16:03)
[2019-06-09] MEDS ORDERED: ALTEPLASE, RECOMBINANT 66 MG in EMPTY BAG 0 ML IV ONE (16:04)
[2019-06-09] MEDS ORDERED: PRIMARY PLUMSET, PE LINED TUBING, 113 IN, NON-DEHP (2260-0500) IV ONE (16:04)
--- NOTE | 2019-06-09 16:57 | XRay Report ---
XR chest 1V portable HISTORY: 59 years-old Male stroke symptoms acute strokelike symptoms COMPARISON: Chest radiograph 10/21/2016, CTA neck 06/09/2019 TECHNIQUE: Portable AP view of the chest FINDINGS: Cardiomediastinal and hilar silhouettes are unchanged. Calcified plaque of the thoracic arch. No pneu mothorax, pleural effusion, focal airspace consolidation or overt pulmonary edema. Bones of the chest appear grossly intact. Degenerative changes of the shoulders and spine. IMPRESSION: No acute process. The above report was generated using voice recognition software. It may contain grammatical, syntax o r spelling errors. Electronically signed by: Bari Pfeiffer M.D. 06/09/2019 4:55 PM
[2019-06-09 18:02] LABS: Appearance Urine Clear (Clear); Bilirubin Urine Negative (Negative); Blood Urine Negative (Negative); Color Urine Yellow; Glucose Urine UA Negative (Negative); Ketones Urine Negative (Negative); Leukocyte Esterase Urine Negative (Negative); Nitrite Urine Negative (Negative); Protein Urine Negative (Negative); Specific Gravity Urine > 1.045 (1.000-1.030); Urobilinogen Urine Negative (Negative)
[2019-06-09] MEDS ORDERED: LABETALOL HCL IV 5 MG/ML 20ML IV PRN (18:47)
[2019-06-09] MEDS ORDERED: ICU PROTOCOL FOR HYPERGLYCEMIA PRN ×2 (18:47)
[2019-06-09] MEDS ORDERED: PHARMACIST DISCHARGE MED REC CONSULT STA (18:47)
[2019-06-09] MEDS ORDERED: PHARMACIST DISCHARGE MED REC CONSULT PRN (18:52)
--- NOTE | 2019-06-09 18:58 | History & Physical Report ---
Date of Service June 09, 2019 Assessment & Plan (1) Left sided numbness: -Admit to ICU -Patient presenting from home with reports of sudden onset left-sided numbness at around 230; no other associated symptoms -Risk factors: HTN, HLD, former smoker -Stroke alert was called and patient received TPA without improvement of symptoms -Head CT, head and neck CTAs negative for acute findings -Brain MRI, echo -Neurochecks per protocol -Permissive hypertension -Continue statin -Also consider cervical spine disease or complex migraine as source of symptoms -Neurology consult (2) History of hypertension: -Continue metoprolol -Allow for permissive hypertension in the setting of possible acute CVA (3) Hyperlipidemia: -Continue statin (4) Mild aortic stenosis: (5) Bicuspid aortic valve: (6) Moderate aortic regurgitation: -No acute issues -Obtain echo (7) GERD (gastroesophageal reflux disease): -Continue PPI (8) DVT prophylaxis: -Pharmacologic prophylaxis contraindicated secondary to TPA History of Present Illness Chief Complaint: Left Sided Numbness Primary Care Provider: Michael Cisneros, 59-year-old male who presents the ED for evaluation of left-sided numbness. Patient reports that around 230, he had sudden onset of left-sided numbness. He denies any associated weakness, facial droop, drooling, difficulty with speech or comprehension. He was able to ambulate without difficulty. No headache, blurred or double vision. Denies lightheadedness, dizziness, syncopal event. He denies any recent neck trauma. No chest pain or shortness of breath. He denies abdominal pain, nausea, vomiting, diarrhea. No other recent illness, fever, chills. He denies any urinary symptoms. In the ED, stroke alert was called. Given persistent numbness, stroke neurologist recommended TPA. Patient received TPA and has not had any change in his symptoms. Labs are unremarkable. Allergies Allergy/AdvReac Type Severity Reaction Status Date / Time Cipro Allergy Mild RASH Verified 04/09/18 07:49 ciprofloxacin Allergy Mild RASH Verified 06/09/19 16:12 cephalexin Allergy Unknown RASH Verified 06/09/19 16:12 Sulfa (Sulfonamide Allergy Unknown MOTHER AND Verified 06/09/19 16:12 Antibiotics) SISTER GETS RASH sulfite Allergy Unknown EARS FELT Verified 06/09/19 16:12 HOT AND REDNESS, FACIAL BLOTCHINESS latex AdvReac Mild "GAVE Verified 06/09/19 16:12 STRANGE SENSATION TO SKIN" Betamethasone Dipropionate Allergy Mild Unknown Uncoded 06/09/19 16:12 OIN TOPICAL STEROID Allergy Unknown RASH AND Uncoded 06/09/19 16:12 FEELS LIKE SOMTHING IN THROAT Home Medications Home Medications Medication Instructions Recorded Confirmed Type Lactobacillus acidophilus 100 mmu cells PO DAILY 06/09/19 06/09/19 History [Probiotic Acidophilus] ascorbic acid (vitamin C) [Vitamin 500 mg PO DAILY 06/09/19 06/09/19 History C] aspirin 81 mg PO DAILY 06/09/19 06/09/19 History atorvastatin 20 mg PO DAILY 06/09/19 06/09/19 History magnesium 200 mg PO DAILY 06/09/19 06/09/19 History metoprolol succinate 12.5 mg PO DAILY 06/09/19 06/09/19 History multivitamin 1 tab PO DAILY 06/09/19 06/09/19 History omega-3 fatty acids 2,000 mg PO DAILY 06/09/19 06/09/19 History pantoprazole 40 mg PO BID 06/09/19 06/09/19 History polyethylene glycol 3350 [Miralax] 17 g PO DAILY PRN 06/09/19 06/09/19 History ranitidine HCl 300 mg PO DAILY 06/09/19 06/09/19 History Past Med/Surg History Medical History Bicuspid aortic valve (Chronic) Mild aortic stenosis (Chronic) Moderate aortic regurgitation (Chronic) Hyperlipidemia (Chronic) History of basal cell carcinoma (Chronic) History of hypertension (Chronic) GERD (gastroesophageal reflux disease) (Chronic) Psoriasis (Chronic) DDD (degenerative disc disease), cervical (Chronic) Diaphragmatic hernia (Chronic 11/03/11) Surgical History Hx of tonsillectomy (Chronic) H/O rotator cuff surgery (Chronic) H/O esophagogastroduodenoscopy (Chronic) "2010- Schatzki ring dilated, esophagitis, HH" Family History Father Heart disease Uncle Stroke Social History Preferred Language: Chinese Communication Ability: 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 Beliefs That Will Affect Care: None Current Living Situation: Spouse Other Information That Helps Us Care for You: No Feels Safe at Home: Yes Safety Concerns: Feels Safe At This Time Smoking Status: Former smoker Tobacco Type: cigarettes ; Do You Dip or Chew Tobacco: No ; Smoking End Date: 29 yrs ago ; Second Hand Exposure: No ; Tobacco Cessation Education Requested by Patient: No Hx Alcohol Use: Yes Alcohol type: beer Alcohol Intake Frequency: Holidays/Special Occasions Hx Substance Use: No Review of Systems Review of Systems: ROS per HPI, all other systems reviewed and negative Physical Exam Constitutional: WD/WN, vitals as above Eyes: PERRL, conjunctivae normal, anicteric sclerae ENMT: Ears: no external ear abnormality Nose: no external nose abnormality Mouth: + gingival abnormality (Mild gum bleeding noted) Respiratory: normal respiratory effort, lungs clear to auscultation Cardiovascular: Rate/Rhythm: regular rate and regular rhythm Heart Sounds: + murmur (Systolic) Vessels: normal peripheral pulses Extremities: no edema Gastrointestinal (Abdomen): normal bowel sounds, soft, nontender, no hepatosplenomegaly Musculoskeletal: no cyanosis or clubbing, extremities motor strength 5/5 Skin: no rashes, warm and dry Neurologic: PERRL, EOMI, accommodation nl, no face palsy, no dysarthria moves all extremities and awake Motor/Sensory: + sensory deficit (Decreased sensation involving the left side of the body); no pronator drift Cranial Nerves: tongue midline and able to elevate shoulders bilaterally Coordination: normal [id number] test and normal [id number] test Psychiatric: A+Ox3, euthymic affect Results & Data Vital Signs (Past 12 Hours) Vital Signs Temp Pulse Pulse Resp BP BP Pulse Ox 06/09/19 18:47 36.7 C 79 77 18 155/79 H 95 06/09/19 18:30 98 06/09/19 18:25 79 26 H 147/82 H 97 06/09/19 18:20 78 18 147/80 H 95 06/09/19 18:15 77 23 147/83 H 96 06/09/19 18:10 81 23 162/93 H 94 06/09/19 18:05 77 20 161/84 H 95 06/09/19 18:00 75 14 149/77 H 96 06/09/19 17:55 80 144/81 H 96 06/09/19 17:50 79 19 164/87 H 96 06/09/19 17:45 82 23 160/89 H 95 06/09/19 17:40 82 20 06/09/19 17:35 83 22 160/93 H 06/09/19 17:30 99 H 25 H 163/93 H 96 06/09/19 17:25 81 14 161/77 H 97 06/09/19 17:20 80 20 167/78 H 99 06/09/19 17:15 82 17 170/73 H 99 06/09/19 17:10 75 18 95 06/09/19 17:05 87 14 150/97 H 92 06/09/19 17:00 77 14 156/82 H 96 06/09/19 16:55 77 15 153/81 H 98 06/09/19 16:50 79 14 158/80 H 92 06/09/19 16:45 78 16 154/79 H 94 06/09/19 16:40 80 16 158/84 H 94 06/09/19 16:35 83 20 145/86 H 95 06/09/19 16:30 80 18 148/84 H 94 06/09/19 16:26 81 18 146/80 H 95 06/09/19 16:25 76 15 06/09/19 16:20 82 22 161/86 H 06/09/19 16:15 83 17 164/83 H 06/09/19 16:11 91 H 17 146/95 H 98 06/09/19 16:10 82 17 96 06/09/19 16:05 82 13 189/96 H 97 06/09/19 16:00 92 H 14 180/84 H 06/09/19 15:58 102 H 15 185/90 H 06/09/19 15:56 88 14 06/09/19 15:55 93 H 16 184/90 H 06/09/19 15:52 93 H 16 06/09/19 15:51 92 H 18 157/86 H 06/09/19 15:49 88 13 198/95 H 06/09/19 15:45 92 H 14 186/84 H 95 06/09/19 15:40 94 H 18 96 06/09/19 15:35 96 H 17 06/09/19 15:30 93 H 20 174/98 H 06/09/19 15:28 97 H 24 97 06/09/19 15:26 98 H 18 179/100 H 97 06/09/19 15:25 94 H 18 189/97 H 97 06/09/19 15:17 36.6 C 101 H 22 186/108 H 99 Laboratory Results Short CBC 06/09/19 Range/Units 15:25 WBC 9.02 (4.8-10.8) K/uL Hgb 14.1 (14.0-18.0) g/dL Hct 41.6 L (42-52) % Plt Count 184 (130-400) K/uL BMP 06/09/19 15:25 Sodium 135 L Potassium 3.3 L Chloride 102 Carbon Dioxide 25 BUN 15 Creatinine 1.02 Glucose 140 H Calcium 8.5 Cardiac Enzymes 06/09/19 Range/Units 15:25 Troponin I < 0.015 (0-0.045) ng/ml Liver Function 06/09/19 Range/Units 15:25 Total Bilirubin 0.4 (0.2-1) mg/dl AST 17 (15-37) U/L ALT 48 (12-78) U/L Alkaline Phosphatase 108 (45-117) U/L Albumin 3.2 L (3.4-5.0) gm/dl Urine 06/09/19 Range/Units Unknown Urine Color Yellow Urine Appearance Clear (Clear) Urine pH 5.0 (4.5-7.5) Ur Specific [place] > 1.045 H (1.000-1.030) Urine Protein Negative (Negative) Urine Glucose (UA) Negative (Negative) Diagnostic Findings HEAD CT IMPRESSION: 1. No acute intracranial abnormality. HEAD CTA IMPRESSION: 1. No evidence of aneurysm, focal vessel occlusion, or significant stenosis of the intracranial arteries. NECK CTA IMPRESSION: No significant stenosis, occlusion, or dissection identified within the carotid or vertebral arteries. CXR IMPRESSION: No acute process. Code Status & VTE Plan VTE Prophylaxis Plan VTE Prophylaxis will be ordered: Yes Supervising Physician Co-Signing Physician Notes HISTORY: Record reviewed. Patient interviewed and examined in ED. Care coordinated with FATEMEH Dash. Please refer to her documentation for patient's history. Briefly, 59-year-old male with history of bicuspid aortic valve, hypertension, dyslipidemia. Presented to ED complaining of left-sided numbness. Stroke alert was called and tele-stroke consultation with [facility] obtained. Thrombolytic therapy with TPA was recommended. EXAM: General- no distress ENT- mild gingival bleeding Neck-bilateral carotid bruits versus transmitted aortic murmur Lungs- clear to auscultation; no respiratory distress Cardiovascular- RRR; III/ systolic murmur at base; no gallop; no JVD; no pretibial edema Abdomen- + bowel sounds, soft, nontender Extremities- no cyanosis; no calf tenderness Neuro- alert, oriented; PERRL, EOMI; no facial palsy; no dysarthria; no aphasia; motor strength upper and lower extremities intact; plantar reflexes equivocal bilat; no difficulty with finger to nose or heel to berry; decreased sensation to light touch LUE and LLE Skin- warm & dry DATA: K 3.3. Other lab studies as noted. Chest x-ray negative. CT head negative. CTA cervical and intracranial vessels negative. EKG performed at 1525 reviewed and demonstrated normal sinus rhythm at 90 / minute, no acute abnormalities. ASSESSMENT AND PLAN: Stroke-like symptoms with left-sided numbness. CT head negative. CTA cervical and intracranial vessels negative. Thrombolytic therapy recommended by [facility] telestroke field technical support consultant. Check MRI. Check echo. Monitor for arrhythmias. Stroke care per protocol. 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 Consult Neuro. Please refer to JAILYN Louie's documentation for discussion of other issues.
[2019-06-09] MEDS ORDERED: POTASSIUM CHLORIDE 20 MEQ TABCR PO STA (19:03)
[2019-06-09] MEDS ORDERED: LORazepam 0.5 MG TAB PO STA (20:18)
[2019-06-09] MEDS ORDERED: LORazepam 1 MG TAB PO STA (20:22)
[2019-06-09] MEDS ORDERED: LORazepam 1 MG TAB ONE (20:24)
--- NOTE | 2019-06-09 20:36 | Critical Care Consultation ---
Date of Consultation June 09, 2019 Assessment & Plan (1) DVT prophylaxis: Reason Critically Ill: Sudden onset of left sided numbness admitted to ICU post tpa administration Cardiovascular: Sudden onset of possible neurologic symptoms concerning enough for stroke to give tPA Has multiple risk factors for stroke (HLD, HTN, former smoker) but symptoms are odd and CT head w and without contrast was negative. Will continue atorvastatin and metoprolol Has been hypertensive, we will try to control blood pressure with labetalol PRN for Sytolic greater than 160 diastolic greater than 100 to make sure we stay under 185 systolic or 105 diastolic Neuro Cam ICU negative No altered mental status Neuro exam completely normal other than subjective sensation. He can feel me everywhere I touch but everything left of patient's midline feels like pins and needles he tells me Will get neuro checks per protocol Neurology consulted Renal Creatinine normal Mildly hypokalemic, will replete potassium GI: No abnormalities ID: No infectious Process Psych: Patient very claustrophobic, giving 1 mg ativan for MRI scan DVT PPx: Contraindicated on tPA F/E/N: Regular diet Dispo: ICU Code Status: Full (2) Hyperlipidemia: (3) Moderate aortic regurgitation: (4) GERD (gastroesophageal reflux disease): (5) Received intravenous tissue plasminogen activator (tPA) in emergency department: (6) Admitted to intensive care unit: Supervising Physician Co-Signing Physician Notes Dr. Crowley was resident physician during care of patient. I separately evaluated patient for lira portions of the history and the exam. I was present during the critical portion of medical decision making, and I discussed the case with the resident. I generally agree with the findings and plan. Status post TPA administration: Bleeding precautions History of Present Illness Reason for Consultation: Clayton Rodriges is a 59 year old man with a past medical history of hyperlipidemia, HTN, past smoker who presented to emergency department with sudden onset of left sided "numbness" He describes the sensation as pins and needles from the tip of his head to the bottom of his feet. No loss of muscle strength, no facial weakness, dyarthria, aphasia, no difficulty with coordination, no difficulty with ambulation or swallowing. No recent neck or back injury, no head trauma, no history of similar symptoms. Patient was dealing with flu like illness for four days or so prior to onset of symptoms. 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 He received TPA in left arm and has been sent to the ICU for monitoring. Attending Physician: Yong Graff DO Allergies Allergy/AdvReac Type Severity Reaction Status Date / Time Cipro Allergy Mild RASH Verified 04/09/18 07:49 ciprofloxacin Allergy Mild RASH Verified 06/09/19 16:12 cephalexin Allergy Unknown RASH Verified 06/09/19 16:12 Sulfa (Sulfonamide Allergy Unknown MOTHER AND Verified 06/09/19 16:12 Antibiotics) SISTER GETS RASH sulfite Allergy Unknown EARS FELT Verified 06/09/19 16:12 HOT AND REDNESS, FACIAL BLOTCHINESS latex AdvReac Mild "GAVE Verified 06/09/19 16:12 STRANGE SENSATION TO SKIN" Betamethasone Dipropionate Allergy Mild Unknown Uncoded 06/09/19 16:12 OIN TOPICAL STEROID Allergy Unknown RASH AND Uncoded 06/09/19 16:12 FEELS LIKE SOMTHING IN THROAT Home Medications Home Medications Medication Instructions Recorded Confirmed Type Probiotic Acidophilus 100 mmu cells PO DAILY 06/09/19 06/09/19 History ascorbic acid (vitamin C) [Vitamin 500 mg PO DAILY 06/09/19 06/09/19 History C] magnesium 200 mg PO DAILY 06/09/19 06/09/19 History metoprolol succinate 12.5 mg PO DAILY 06/09/19 06/09/19 History multivitamin 1 tab PO DAILY 06/09/19 06/09/19 History omega-3 fatty acids 2,000 mg PO DAILY 06/09/19 06/09/19 History pantoprazole 40 mg PO BID 06/09/19 06/09/19 History polyethylene glycol 3350 [Miralax] 17 g PO DAILY PRN 06/09/19 06/09/19 History ranitidine HCl 300 mg PO DAILY 06/09/19 06/09/19 History aspirin 81 mg PO DAILY #90 tab 06/11/19 Rx atorvastatin [Lipitor] 80 mg PO HS #30 tab 06/11/19 Rx Patient History Medical History Bicuspid aortic valve (Chronic) Mild aortic stenosis (Chronic) Moderate aortic regurgitation (Chronic) Hyperlipidemia (Chronic) History of basal cell carcinoma (Chronic) History of hypertension (Chronic) GERD (gastroesophageal reflux disease) (Chronic) Psoriasis (Chronic) DDD (degenerative disc disease), cervical (Chronic) Diaphragmatic hernia (Chronic 11/03/11) Surgical History Hx of tonsillectomy (Chronic) H/O rotator cuff surgery (Chronic) H/O esophagogastroduodenoscopy (Chronic) "2010- Schatzki ring dilated, esophagitis, HH" Family History Father Heart disease Uncle Stroke Social History Preferred Language: Slovenian Communication Ability: Effective Claim Clerk Required: No Beliefs That Will Affect Care: None Current Living Situation: Spouse Other Information That Helps Us Care for You: No Feels Safe at Home: Yes Safety Concerns: Feels Safe At This Time Smoking Status: Former smoker Tobacco Type: cigarettes ; Do You Dip or Chew Tobacco: No ; Smoking End Date: 29 yrs ago ; Second Hand Exposure: No ; Tobacco Cessation Education Requested by Patient: No Hx Alcohol Use: Yes Alcohol type: beer Alcohol Intake Frequency: Holidays /Special Occasions Hx Substance Use: No Review of Systems Review of Systems: All systems reviewed & are unremarkable except as noted in HPI & below Results & Data Vital Signs (Past 12 Hours) Vital Signs Temp Pulse Pulse Resp BP BP Pulse Ox 06/09/19 19:16 37.1 C 79 18 155/79 H 95 06/09/19 19:00 37.1 C 84 18 148/86 H 97 06/09/19 18:47 36.7 C 79 77 18 155/79 H 95 06/09/19 18:30 98 06/09/19 18:25 79 26 H 147/82 H 97 06/09/19 18:20 78 18 147/80 H 95 06/09/19 18:15 77 23 147/83 H 96 06/09/19 18:10 81 23 162/93 H 94 06/09/19 18:05 77 20 161/84 H 95 06/09/19 18:00 75 14 149/77 H 96 06/09/19 17:55 80 144/81 H 96 06/09/19 17:50 79 19 164/87 H 96 06/09/19 17:45 82 23 160/89 H 95 06/09/19 17:40 82 20 06/09/19 17:35 83 22 160/93 H 06/09/19 17:30 99 H 25 H 163/93 H 96 06/09/19 17:25 81 14 161/77 H 97 06/09/19 17:20 80 20 167/78 H 99 06/09/19 17:15 82 17 170/73 H 99 06/09/19 17:10 75 18 95 06/09/19 17:05 87 14 150/97 H 92 06/09/19 17:00 77 14 156/82 H 96 06/09/19 16:55 77 15 153/81 H 98 06/09/19 16:50 79 14 158/80 H 92 06/09/19 16:45 78 16 154/79 H 94 06/09/19 16:40 80 16 158/84 H 94 06/09/19 16:35 83 20 145/86 H 95 06/09/19 16:30 80 18 148/84 H 94 06/09/19 16:26 81 18 146/80 H 95 06/09/19 16:25 76 15 06/09/19 16:20 82 22 161/86 H 06/09/19 16:15 83 17 164/83 H 06/09/19 16:11 91 H 17 146/95 H 98 06/09/19 16:10 82 17 96 06/09/19 16:05 82 13 189/96 H 97 06/09/19 16:00 92 H 14 180/84 H 06/09/19 15:58 102 H 15 185/90 H 06/09/19 15:56 88 14 06/09/19 15:55 93 H 16 184/90 H 06/09/19 15:52 93 H 16 06/09/19 15:51 92 H 18 157/86 H 06/09/19 15:49 88 13 198/95 H 06/09/19 15:45 92 H 14 186/84 H 95 06/09/19 15:40 94 H 18 96 06/09/19 15:35 96 H 17 06/09/19 15:30 93 H 20 174/98 H 06/09/19 15:28 97 H 24 97 06/09/19 15:26 98 H 18 179/100 H 97 09/23/19 15:25 94 H 18 189/97 H 97 06/09/19 15:17 36.6 C 101 H 22 186/108 H 99 PG Care Time/CCT Total # of Minutes Spent Total Time Spent with Patient: Total time spent is greater than 50% in coordination of care (as documented) at patient's floor/unit and/or counseling patient: Resident Activity Tracking Resident Involvement: Resident Care Provided Care Provided: Adult Hospital Medicine
--- NOTE | 2019-06-09 21:27 | Emergency Department Note ---
Entered by Lora Magana acting as a scribe for Justin Hernandez MD History of Present Illness General Chief complaint: Stroke Alert Stated complaint: STROKE ALERT Source: patient History of Present Illness Provider complaint: numbness and tingling Onset (ago): minute(s) 30 Location: head Radiation: non-radiation Pain Consistency: + other (episode) Relieved By: + none Associated symptoms: + cough; no weakness The patient is a 59 year old male who presents to the Emergency Room with complaints of numbness and tingling episode that started 30 minutes ago. The patient reports that he felt numbness and tingling on the left side of his body that started at 1430 today. He states that it has slightly resolved since then. The patient reports that he has had a cough and congestion for the past several days. He states that he had a low grade fever on , but Sunday he felt fine. He denies any weakness. The patient reports that he has a history of tick bites and aortic stenosis. He denies any history of migraines. Home Medications Home Medications Medication Instructions Recorded Confirmed Type Lactobacillus acidophilus 100 mmu cells PO DAILY 06/09/19 06/09/19 History [Probiotic Acidophilus] ascorbic acid (vitamin C) [Vitamin 500 mg PO DAILY 06/09/19 06/09/19 History C] aspirin 81 mg PO DAILY 06/09/19 06/09/19 History atorvastatin 20 mg PO DAILY 06/09/19 06/09/19 History magnesium 200 mg PO DAILY 06/09/19 06/09/19 History metoprolol succinate 12.5 mg PO DAILY 06/09/19 06/09/19 History multivitamin 1 tab PO DAILY 06/09/19 06/09/19 History omega-3 fatty acids 2,000 mg PO DAILY 06/09/19 06/09/19 History pantoprazole 40 mg PO BID 06/09/19 06/09/19 History polyethylene glycol 3350 [Miralax] 17 g PO DAILY PRN 06/09/19 06/09/19 History ranitidine HCl 300 mg PO DAILY 06/09/19 06/09/19 History Allergies Allergy/AdvReac Type Severity Reaction Status Date / Time Cipro Allergy Mild RASH Verified 04/09/18 07:49 ciprofloxacin Allergy Mild RASH Verified 06/09/19 16:12 cephalexin Allergy Unknown RASH Verified 06/09/19 16:12 Sulfa (Sulfonamide Allergy Unknown MOTHER AND Verified 06/09/19 16:12 Antibiotics) SISTER GETS RASH sulfite Allergy Unknown EARS FELT Verified 06/09/19 16:12 HOT AND REDNESS, FACIAL BLOTCHINESS latex AdvReac Mild "GAVE Verified 06/09/19 16:12 STRANGE SENSATION TO SKIN" Betamethasone Dipropionate Allergy Mild Unknown Uncoded 06/09/19 16:12 OIN TOPICAL STEROID Allergy Unknown RASH AND Uncoded 06/09/19 16:12 FEELS LIKE SOMTHING IN THROAT Past Med/Surg History Medical History Bicuspid aortic valve (Chronic) Mild aortic stenosis (Chronic) Moderate aortic regurgitation (Chronic) Hyperlipidemia (Chronic) History of basal cell carcinoma (Chronic) History of hypertension (Chronic) GERD (gastroesophageal reflux disease) (Chronic) Psoriasis (Chronic) DDD (degenerative disc disease), cervical (Chronic) Diaphragmatic hernia (Chronic 11/03/11) Surgical History Hx of tonsillectomy (Chronic) H/O rotator cuff surgery (Chronic) H/O esophagogastroduodenoscopy (Chronic) "2010- Schatzki ring dilated, esophagitis, HH" Family History Father Heart disease Uncle Stroke Social History Preferred Language: Vietnamese Communication Ability: Effective Director Maternal Child Required: No Beliefs That Will Affect Care: None Current Living Situation: Spouse Other Information That Helps Us Care for You: No Feels Safe at Home: Yes Safety Concerns: Feels Safe At This Time Smoking Status: Former smoker Tobacco Type: cigarettes ; Do You Dip or Chew Tobacco: No ; Smoking End Date: 29 yrs ago ; Second Hand Exposure: No ; Tobacco Cessation Education Requested by Patient: No Hx Alcohol Use: Yes Alcohol type: beer Alcohol Intake Frequency: Holidays/Special Occasions Hx Substance Use: No Review of Systems See HPI for pertinent positives & negatives. and A total of 10 systems reviewed and were otherwise negative Physical Exam Vital Signs Vital Signs - 24 hr 06/09/19 15:17 06/09/19 15:25 06/09/19 15:26 Temperature 36.6 C Temperature Source Oral Sepsis Recent Fever Within 48 Hours No Sepsis Action Taken by Nursing No Action Required Pulse Rate 101 H 94 H 98 H Pulse Rate from SpO2 Sensor 95 H 99 H Pulse Rhythm Regular Pulse Strength Normal Respiratory Rate 22 18 18 Respiratory Effort / Characteristics Non-Labored Respiratory Depth Normal Respiratory Pattern Regular Blood Pressure 186/108 H 189/97 H 179/100 H Blood Pressure Mean 134 127 126 Blood Pressure Position Sitting Pulse Oximetry 99 97 97 Oxygen Delivery Method Room Air 06/09/19 15:28 06/09/19 15:30 06/09/19 15:35 Temperature Temperature Source Sepsis Recent Fever Within 48 Hours Sepsis Action Taken by Nursing Pulse Rate 97 H 93 H 96 H Pulse Rate from SpO2 Sensor 98 H Pulse Rhythm Pulse Strength Respiratory Rate 24 20 17 Respiratory Effort / Characteristics Respiratory Depth Respiratory Pattern Blood Pressure 174/98 H Blood Pressure Mean 123 Blood Pressure Position Pulse Oximetry 97 Oxygen Delivery Method 06/09/19 15:40 06/09/19 15:45 06/09/19 15:49 Temperature Temperature Source Sepsis Recent Fever Within 48 Hours Sepsis Action Taken by Nursing Pulse Rate 94 H 92 H 88 Pulse Rate from SpO2 Sensor 94 H 91 H Pulse Rhythm Pulse Strength Respiratory Rate 18 14 13 Respiratory Effort / Characteristics Respiratory Depth Respiratory Pattern Blood Pressure 186/84 H 198/95 H Blood Pressure Mean 118 129 Blood Pressure Position Pulse Oximetry 96 95 Oxygen Delivery Method 06/09/19 15:51 06/09/19 15:52 06/09/19 15:55 Temperature Temperature Source Sepsis Recent Fever Within 48 Hours Sepsis Action Taken by Nursing Pulse Rate 92 H 93 H 93 H Pulse Rate from SpO2 Sensor Pulse Rhythm Pulse Strength Respiratory Rate 18 16 16 Respiratory Effort / Characteristics Respiratory Depth Respiratory Pattern Blood Pressure 157/86 H 184/90 H Blood Pressure Mean 109 121 Blood Pressure Position Pulse Oximetry Oxygen Delivery Method 06/09/19 15:56 06/09/19 15:58 06/09/19 16:00 Temperature Temperature Source Sepsis Recent Fever Within 48 Hours Sepsis Action Taken by Nursing Pulse Rate 88 102 H 92 H Pulse Rate from SpO2 Sensor Pulse Rhythm Pulse Strength Respiratory Rate 14 15 14 Respiratory Effort / Characteristics Respiratory Depth Respiratory Pattern Blood Pressure 185/90 H 180/84 H Blood Pressure Mean 121 116 Blood Pressure Position Pulse Oximetry Oxygen Delivery Method 06/09/19 16:05 06/09/19 16:10 06/09/19 16:11 Temperature Temperature Source Sepsis Recent Fever Within 48 Hours Sepsis Action Taken by Nursing Pulse Rate 82 82 91 H Pulse Rate from SpO2 Sensor 82 83 90 Pulse Rhythm Pulse Strength Respiratory Rate 13 17 17 Respiratory Effort / Characteristics Respiratory Depth Respiratory Pattern Blood Pressure 189/96 H 146/95 H Blood Pressure Mean 127 112 Blood Pressure Position Pulse Oximetry 97 96 98 Oxygen Delivery Method 06/09/19 16:15 06/09/19 16:20 06/09/19 16:25 Temperature Temperature Source Sepsis Recent Fever Within 48 Hours Sepsis Action Taken by Nursing Pulse Rate 83 82 76 Pulse Rate from SpO2 Sensor Pulse Rhythm Pulse Strength Respiratory Rate 17 22 15 Respiratory Effort / Characteristics Respiratory Depth Respiratory Pattern Blood Pressure 164/83 H 161/86 H Blood Pressure Mean 110 111 Blood Pressure Position Pulse Oximetry Oxygen Delivery Method 06/09/19 16:26 06/09/19 16:30 06/09/19 16:35 Temperature Temperature Source Sepsis Recent Fever Within 48 Hours Sepsis Action Taken by Nursing Pulse Rate 81 80 83 Pulse Rate from SpO2 Sensor 78 80 81 Pulse Rhythm Pulse Strength Respiratory Rate 18 18 20 Respiratory Effort / Characteristics Respiratory Depth Respiratory Pattern Blood Pressure 146/80 H 148/84 H 145/86 H Blood Pressure Mean 102 105 105 Blood Pressure Position Pulse Oximetry 95 94 95 Oxygen Delivery Method 06/09/19 16:40 06/09/19 16:45 06/09/19 16:50 Temperature Temperature Source Sepsis Recent Fever Within 48 Hours Sepsis Action Taken by Nursing Pulse Rate 80 78 79 Pulse Rate from SpO2 Sensor 79 77 79 Pulse Rhythm Pulse Strength Respiratory Rate 16 16 14 Respiratory Effort / Characteristics Respiratory Depth Respiratory Pattern Blood Pressure 158/84 H 154/79 H 158/80 H Blood Pressure Mean 108 104 106 Blood Pressure Position Pulse Oximetry 94 94 92 Oxygen Delivery Method 06/09/19 16:55 06/09/19 17:00 06/09/19 17:05 Temperature Temperature Source Sepsis Recent Fever Within 48 Hours Sepsis Action Taken by Nursing Pulse Rate 77 77 87 Pulse Rate from SpO2 Sensor 77 78 83 Pulse Rhythm Pulse Strength Respiratory Rate 15 14 14 Respiratory Effort / Characteristics Respiratory Depth Respiratory Pattern Blood Pressure 153/81 H 156/82 H 150/97 H Blood Pressure Mean 105 106 114 Blood Pressure Position Pulse Oximetry 98 96 92 Oxygen Delivery Method 06/09/19 17:10 06/09/19 17:15 06/09/19 17:20 Temperature Temperature Source Sepsis Recent Fever Within 48 Hours Sepsis Action Taken by Nursing Pulse Rate 75 82 80 Pulse Rate from SpO2 Sensor 76 81 81 Pulse Rhythm Pulse Strength Respiratory Rate 18 17 20 Respiratory Effort / Characteristics Respiratory Depth Respiratory Pattern Blood Pressure 170/73 H 167/78 H Blood Pressure Mean 105 107 Blood Pressure Position Pulse Oximetry 95 99 99 Oxygen Delivery Method 06/09/19 17:25 06/09/19 17:30 06/09/19 17:35 Temperature Temperature Source Sepsis Recent Fever Within 48 Hours Sepsis Action Taken by Nursing Pulse Rate 81 99 H 83 Pulse Rate from SpO2 Sensor 83 83 Pulse Rhythm Pulse Strength Respiratory Rate 14 25 H 22 Respiratory Effort / Characteristics Respiratory Depth Respiratory Pattern Blood Pressure 161/77 H 163/93 H 160/93 H Blood Pressure Mean 105 116 115 Blood Pressure Position Pulse Oximetry 97 96 Oxygen Delivery Method 06/09/19 17:40 06/09/19 17:45 06/09/19 17:50 Temperature Temperature Source Sepsis Recent Fever Within 48 Hours Sepsis Action Taken by Nursing Pulse Rate 82 82 79 Pulse Rate from SpO2 Sensor 84 78 Pulse Rhythm Pulse Strength Respiratory Rate 20 23 19 Respiratory Effort / Characteristics Respiratory Depth Respiratory Pattern Blood Pressure 160/89 H 164/87 H Blood Pressure Mean 112 112 Blood Pressure Position Pulse Oximetry 95 96 Oxygen Delivery Method 06/09/19 17:55 06/09/19 18:00 06/09/19 18:05 Temperature Temperature Source Sepsis Recent Fever Within 48 Hours Sepsis Action Taken by Nursing Pulse Rate 80 75 77 Pulse Rate from SpO2 Sensor 79 76 76 Pulse Rhythm Pulse Strength Respiratory Rate 14 20 Respiratory Effort / Characteristics Respiratory Depth Respiratory Pattern Blood Pressure 144/81 H 149/77 H 161/84 H Blood Pressure Mean 102 101 109 Blood Pressure Position Pulse Oximetry 96 96 95 Oxygen Delivery Method GENERAL: Awake, alert, well-appearing, in no distress HENT: Normocephalic, atraumatic. Oropharynx with dry mucous membranes and otherwise unremarkable. EYES: Normal conjunctiva. Sclera non-icteric. NECK: Supple. No nuchal rigidity. FROM. No JVD. RESPIRATORY: CTAB. CARDIAC: Regular rate, normal rhythm. Extremities warm and well perfused. Pulses equal. ABDOMEN: Soft, non-distended. No tenderness to palpation. No rebound or guarding. No masses. RECTAL: Deferred. MUSCULOSKELETAL: Chest examination reveals no tenderness. The back is symme trical on inspection without obvious abnormality. There is no CVA tenderness to palpation. No joint edema. LOWER EXTREMITIES: Calves are equal size bilaterally and non-tender. No edema. No discoloration. NEURO: Normal sensorium. Subjective left-sided numbness without extinction or objected sensory deficit otherwise. 5/5 strength and SILT x4 extremities. SKIN: No rash or jaundice noted. Course 1506: The patient was evaluated in room B1, a complete history and physical were performed. 1534: [facility] he agrees that the NIH is low, but there is a ellis area. He agreed to try to get on dual evaluation and now sorting out technical difficulties with this. 1644: I discussed the patient's case with Lenore WELDON, [facility]:I discussed the patient's case with Dr. Canela- ICU, he will be monitoring him post TPA in the ICU. Administered Medications Gadobutrol (Gadavist 65ml) 8.4 ml IV ONCE PRN PRN Reason: Interaction Checking Stop: 06/13/19 21:40 Last Admin: 06/09/19 21:41 Dose: 8.4 ml Documented by: [id number] Discontinued Medications Alteplase, Recombinant (Activase For Stroke) 1 ea IV NOW STA; Protocol Stop: 06/09/19 15:54 Last Admin: 06/09/19 17:07 Dose: Not Given Documented by: [id number] Sodium Chloride (Nss 1000ml) 1,000 mls @ 999 mls/hr IV .Q1H1M ONE Stop: 06/09/19 16:10 Last Infusion: 06/09/19 16:59 Dose: 0 mls/hr Documented by: [id number] Admin: 06/09/19 15:40 Dose: 999 mls/hr Documented by: [id number] Alteplase, Recombinant 7.4 mg/ (Syringe) 7.4 mls @ 7.4 mls/min IV ONCE ONE Stop: 06/09/19 16:04 Last Admin: 06/09/19 16:01 Dose: 7.4 mls/min Documented by: [id number] Cosigned by: [id number] Alteplase, Recombinant 66 mg/ (EMPTY BAG) 66 mls @ 66 mls/hr IV ONCE ONE Stop: 06/09/19 16:05 Last Infusion: 06/09/19 17:06 Dose: 0 mls/hr Documented by: [id number] Cosigned by: [id number] Admin: 06/09/19 16:02 Dose: 66 mls/hr Documented by: [id number] Cosigned by: [id number] Labetalol HCl (Normodyne) Confirm Administered Dose 10 mg IV .STK-MED ONE Stop: 06/09/19 15:54 Last Admin: 06/09/19 15:59 Dose: 10 mg Documented by: [id number] Cosigned by: [id number] Labetalol HCl (Normodyne) 10 mg IV NOW STA Stop: 06/09/19 15:54 Last Admin: 06/09/19 16:10 Dose: 10 mg Documented by: [id number] Cosigned by: [id number] Labetalol HCl (Normodyne) 10 mg IV NOW STA Stop: 06/09/19 16:12 Last Admin: 06/09/19 17:08 Dose: Not Given Documented by: [id number] Lorazepam (Ativan) 0.5 mg PO NOW STA Stop: 06/09/19 20:19 Last Admin: 06/09/19 21:28 Dose: Not Given Documented by: [id number] Lorazepam (Ativan) 1 mg PO NOW STA Stop: 06/09/19 20:23 Last Admin: 06/09/19 20:37 Dose: Not Given Documented by: [id number] Lorazepam (Ativan) Confirm Administered Dose 1 mg .ROUTE .STK-MED ONE Stop: 06/09/19 20:25 Last Admin: 06/09/19 20:26 Dose: 1 mg Documented by: [id number] Potassium Chloride (Klor-Con M20) 40 meq PO NOW STA Stop: 06/09/19 19:04 Last Admin: 06/09/19 19:23 Dose: 40 meq Documented by: [id number] Medical Decision Making Differential Diagnosis Differential diagnosis: Etiologies such as metabolic, infection, hypo/hyperglyc emia, electrolyte abnormalities, cardiac sources, intracerebral event, toxicologic, neurologic, as well as others were entertained. Medical Records Attestation: I reviewed the patient's medical records. Home Medications Current Medication List: was personally reviewed by me Laboratory Data Attestation: I reviewed the patient's lab results. Result diagrams: 06/09/19 15:25 06/09/19 15:25 Lab Results 09/06/09/19 06/09/19 Range/Units 15:25 15:25 15:25 WBC 9.02 (4.8-10.8) K/uL RBC 4.86 (4.7-6.1) M/uL Hgb 14.1 (14.0-18.0) g/dL Hct 41.6 L (42-52) % MCV 85.6 (80-100) fL MCH 29.0 (25-34) pg MCHC 33.9 (32-36) g/dL RDW Std Deviation 41.3 (36.4-46.3) fL RDW Coeff of Fatimah 13.3 (11.5-14.5) % Plt Count 184 (130-400) K/uL MPV 9.0 (7.4-10.4) fL Immature Gran % (Auto) 0.3 % Neut % (Auto) 50.7 % Lymph % (Auto) 40.6 % [place] % (Auto) 6.8 % Eos % (Auto) 1.4 % Baso % (Auto) 0.2 % Immature Gran # (Auto) 0.03 H (0.00-0.02) K/uL Neut # (Auto) 4.57 (1.4-6.5) K/uL Lymph # (Auto) 3.66 H (1.2-3.4) K/uL [place] # (Auto) 0.61 H (0.11-0.59) K/uL Eos # (Auto) 0.13 (0-0.5) K/uL Baso # (Auto) 0.02 (0-0.2) K/uL PT 11.0 (9.0-12.0) Seconds INR 1.1 (0.9-1.1) APTT 27.3 (21.0-31.0) Seconds PTT Ratio 1.0 Sodium 135 L (136-145) mmol/L Potassium 3.3 L (3.5-5.1) mmol/L Chloride 102 (98-107) mmol/L Carbon Dioxide 25 (21-32) mmol/L Anion Gap 8.0 (3-11) BUN 15 (7-18) mg/dl Creatinine 1.02 (0.6-1.4) mg/dl Est Cr Clr Drug Dosing 78.4 ml/min Est GFR ( Amer) 92.8 Est GFR (Non-Af Amer) 80.1 BUN/Creatinine Ratio 14.7 (10-20) Glucose 140 H (70-99) mg/dl POC Glucose (70-99) Calcium 8.5 (8.5-10.1) mg/dl Magnesium 1.9 (1.8-2.4) mg/dl Total Bilirubin 0.4 (0.2-1) mg/dl AST 17 (15-37) U/L ALT 48 (12-78) U/L Alkaline Phosphatase 108 (45-117) U/L Troponin I < 0.015 (0-0.045) ng/ml Total Protein 7.1 (6.4-8.2) gm/dl Albumin 3.2 L (3.4-5.0) gm/dl Globulin 3.9 (2.5-4.0) gm/dl Albumin/Globulin Ratio 0.8 L (0.9-2) Blood Type Antibody Screen 06/09/19 06/09/19 Range/Units 15:25 15:25 WBC (4.8-10.8) K/uL RBC (4.7-6.1) M/uL Hgb (14.0-18.0) g/dL Hct (42-52) % MCV (80-100) fL MCH (25-34) pg MCHC (32-36) g/dL RDW Std Deviation (36.4-46.3) fL RDW Coeff of Fatimah (11.5-14.5) % Plt Count (130-400) K/uL MPV (7.4-10.4) fL Immature Gran % (Auto) % Neut % (Auto) % Lymph % (Auto) % [place] % (Auto) % Eos % (Auto) % Baso % (Auto) % Immature Gran # (Auto) (0.00-0.02) K/uL Neut # (Auto) (1.4-6.5) K/uL Lymph # (Auto) (1.2-3.4) K/uL [place] # (Auto) (0.11-0.59) K/uL Eos # (Auto) (0-0.5) K/uL Baso # (Auto) (0-0.2) K/uL PT (9.0-12.0) Seconds INR (0.9-1.1) APTT (21.0-31.0) Seconds PTT Ratio Sodium (136-145) mmol/L Potassium (3.5-5.1) mmol/L Chloride (98-107) mmol/L Carbon Dioxide (21-32) mmol/L Anion Gap (3-11) BUN (7-18) mg/dl Creatinine (0.6-1.4) mg/dl Est Cr Clr Drug Dosing ml/min Est GFR ( Amer) Est GFR (Non-Af Amer) BUN/Creatinine Ratio (10-20) Glucose (70-99) mg/dl POC Glucose 163 H (70-99) Calcium (8.5-10.1) mg/dl Magnesium (1.8-2.4) mg/dl Total Bilirubin (0.2-1) mg/dl AST (15-37) U/L ALT (12-78) U/L Alkaline Phosphatase (45-117) U/L Troponin I (0-0.045) ng/ml Total Protein (6.4-8.2) gm/dl Albumin (3.4-5.0) gm/dl Globulin (2.5-4.0) gm/dl Albumin/Globulin Ratio (0.9-2) Blood Type AB Positive Antibody Screen NEGATIVE Imaging Data Radiologist's Impression: Radiology results as stated below per my review and the radiologist's interpretation: CT angio head w con CLINICAL HISTORY: 59 years-old Male presenting with left sided numbness, stroke alert. TECHNIQUE: Multidetector CT angiography of the head was performed after the administration of intravenous contrast. 3-D volumetric and/or maximum intensity projection (MIP) images were subsequently reconstructed for review. IV contrast: Optiray 320. One or more dose lowering techniques were used consistent with the principles of ALARA (as low as reasonably achievable), including automatic exposure control, mA or kV adjustment to individual patient size, and/or use of iterative reconstruction. COMPARISON: Noncontrast CT head from 2007. CT DOSE (mGy.cm): The estimated cumulative dose is 2101.71 mGy.cm. FINDINGS: Electoral Officer topogram: Unremarkable. Anterior circulation: Atherosclerosis of the cavernous segments of the internal carotid arteries. Intracranial portions of the internal carotid arteries patent to the level of the termini. Anterior cerebral arteries patent. Middle cerebral arteries patent. Anterior communicating artery patent. Posterior circulation: Right dominant vertebral artery. Intradural portions of the vertebral arteries patent. Posterior inferior cerebellar arteries patent. Basilar artery patent. Anterior inferior cerebellar arteries poorly visualized. Superior cerebellar arteries patent. Posterior cerebral arteries patent. Posterior communicating arteries hypoplastic or aplastic. Dural venous sinuses: Patent. Other: Allowing for the phase of contrast, brain parenchyma within normal limits. Calvarium intact. IMPRESSION: 1. No evidence of aneurysm, focal vessel occlusion, or significant stenosis of the intracranial arteries. Electronically signed by: Manjeet Ramirez M.D. 06/09/2019 3:35 PM NECK CTA HISTORY: left sided numbness TECHNIQUE: Multiaxial CT images of the neck were performed following the intravenous administration of contrast to evaluate the major cervical vessels. Maximum intensity projection images were also obtained. All measurements were calculated based on NASCET criteria. A dose lowering technique was utilized adhering to the principles of ALARA. COMPARISON STUDY: None. FINDINGS: The aortic arch and proximal great vessels are widely patent. There i s no significant stenosis, occlusion, or dissection identified within the bilateral common carotid, internal carotid, or vertebral arteries. [id number] atherosclerotic plaque within the bilateral carotid bulbs. Hypoplastic left vertebral artery. IMPRESSION: No significant stenosis, occlusion, or dissection identified within the carotid or vertebral arteries. Electronically signed by: Richard Parker M.D. 06/09/2019 3:[address] head/brain wo con CLINICAL HISTORY: 59 years-old Male presenting with Stroke evaluation, left- sided weakness. TECHNIQUE: Multidetector CT imaging of the head was performed without the use of intravenous contrast. IV contrast: None. One or more dose lowering techniques were used consistent with the principles of ALARA (as low as reasonably achievable), including automatic exposure control, mA or kV adjustment to individual patient size, and/or use of iterative reconstruction. COMPARISON: 05/22/2008. CT DOSE (mGy.cm): The estimated cumulative dose is 2101.71. FINDINGS: Electoral Officer topogram: Unremarkable. Ventricles and sulci normal in size. No hemorrhage. Brain parenchyma normal in appearance with preserved ramos-white differentiation. No acute territorial infarct. No mass effect or midline shift. No extra-axial fluid collection. Paranasal sinuses and mastoid air cells clear. Calvarium intact. IMPRESSION: 1. No acute intracranial abnormality. Electronically signed by: Manjeet Ramirez M.D. 06/09/2019 3:32 PM XR chest 1V portable HISTORY: 59 years-old Male stroke symptoms acute strokelike symptoms COMPARISON: Chest radiograph 10/21/2016, CTA neck 06/09/2019 TECHNIQUE: Portable AP view of the chest FINDINGS: Cardiomediastinal and hilar silhouettes are unchanged. Calcified plaque of the thoracic arch. No pneumothorax, pleural effusion, focal airspace consolidation or overt pulmonary edema. Bones of the chest appear grossly intact. Degenerative changes of the shoulders and spine. IMPRESSION: No acute process. The above report was generated using voice recognition software. It may contain grammatical, syntax or spelling errors. Electronically signed by: Bari Pfeiffer M.D. 06/09/2019 4:55 PM ECG Data Attestation: I personally reviewed and interpreted this ECG as follows: Indication: weakness Rate (beats per minute): 91 Rhythm: normal sinus Findings: + other (normal axis); no acute ischemic change Blood Pressure Blood Pressure Findings: Elevated blood pressure Blood Pressure Disposition: further management by hospitalist CASSANDRA Miller The patient is a pleasant 59-year-old gentleman with a past medical history of hypertension, hyperlipidemia, aortic stenosis who presents emergency department with acute onset episode of left-sided facial, arm and leg numbness that occurred at approximately 1430 with clear last known well just prior to this per hpi. The patient reports having viral-like syndrome earlier this week that resolved but otherwise denies any complaints of chest pain, shortness of breath, dizziness or weakness. On arrival patient is in no acute distress, afebrile with blood pressure 180s/100s and vital signs otherwise stable. On exam the patient has no focal objective neuro deficit. He reports subjective numbness in the left side of his face, arm, leg however exhibits no extinction or objective sensory loss grossly. NIHSS 1. The patient's acute onset of symptoms stroke alert was activated prior to arrival with CT imaging performed immediately. CT head and CTA of the head and neck was negative for ICH, ischemia, or severe narrowing or occlusion of large vessels. We did discuss the case with tele- stroke neurology, Dr. 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 Therefore, after joint decision-making it was decided that TPA would be given. Patient blood pressure was elevated and so decision was made to treat with labetalol and upon having blood pressure within range of initiation TPA was administered with subsequent dose of labetalol provided due to lack of initial response. Subsequently, blood pressure was maintained <180/100. Patient was monitored closely subsequent to TPA administration however he denied any improvement in his symptoms. His, plan for admission for further stroke evaluation including MRI. Patient agreeable with this plan. Case was discussed with Gretchen Deras who evaluate the patient for admission. Case additionally discussed with Dr. Graff, ICU wire galvanizer who will be monitoring the patient in the ICU. Impression & Plan Left sided numbness, Received intravenous tissue plasminogen activator (tPA) in emergency department Critical Care Time Critical Care Time: Yes Total Critical Care Time: 70 I have personally spent greater than 70 minutes of critical care time in the direct management of this patient. This includes bedside care, interpretation of diagnostic studies, and testing, discussion with consultants, patient, and family members, and other required patient management activities. This 70 minutes is in excess of all separately billable procedures. Discharge Plan Visit Data *Final* Discharge Date/Time: 06/09/19 18:31 Chief Complaint: Stroke Alert Stated Complaint: STROKE ALERT ED Provider: Justin Hernandez Discharge Problem: Left sided numbness, Received intravenous tissue plasminogen activator (tPA) in emergency department Patient Disposition: Admitted As Inpatient Discharge Instructions Interventions: ED Discharge Assessment Last Done: 06/09/19 18:31 The scribe's documentation has been prepared under my direction and personally reviewed by me in its entirety. I confirm that the note above accurately reflects all work, treatment, procedures, and medical decision making performed by me.
[2019-06-09] MEDS ORDERED: GADOBUTROL 65ML VIAL IV PRN (21:41)
[2019-06-09] MEDS: PANTOprazole 40 MG TAB PO SCH (21:52)
--- NOTE | 2019-06-09 21:57 | Magnetic Resonance Report ---
MR brain wo/w con HISTORY: 59 years-old Male left sided numbness acute left-sided numbness COMPARISON: CTA head and neck of same day TECHNIQUE: Multiplanar multisequence MRI of the brain was obtained both with and without the use of 8 .4 mL Gadavist FINDINGS: No gross abnormality identified within the extracranial tissues on the java software developer localizer images. There is no restricted diffusion to suggest acute or subacute infarction. Midline structures including the corpus callosum, brainstem, optic chiasm, pituitary and pineal glands appear unremarkable on the sagi ttal T1 series. No cerebellar tonsillar herniation. Degenerative changes are noted about the imaged c ervical spine. Mild age-related involutional changes. No acute intracranial hemorrhage, midline shift , abnormal extra-axial collection, hydrocephalus or intracranial mass. There are a few scattered T2/F LAIR hyperintensities noted about the white matter of the cerebral hemispheres, nonspecific however s tatistically favoring mild chronic microvascular ischemic disease. There is no abnormal intra-axial o r extra-axial enhancement. Study is motion degraded. Major flow voids at the level the skull base appear patent. Mastoid air cells are clear. Mild polypoi d mucosal thickening of the medial left maxillary sinus. Mild mucosal thickening of the ethmoid air c ells and maxillary sinuses. Skull, orbits and soft tissues are unremarkable. IMPRESSION: 1. No acute intracranial abnormality identified, specifically there is no evidence of acute or subacu te infarction. 2. Scattered T2/FLAIR hyperintensities about the white matter of the bilateral cerebral hemispheres a re nonspecific, statistically favoring mild chronic microvascular ischemic disease. 3. No abnormal enhancement. The above report was generated using voice recognition software. It may contain grammatical, syntax o r spelling errors. Electronically signed by: Bari Pfeiffer M.D. 06/09/2019 9:56 PM
[2019-06-10 05:24] LABS: Magnesium 1.9 mg/dl (1.8-2.4); Phosphorus 3.5 mg/dl (2.5-4.9)
[2019-06-10 06:32] LABS: Estimated Average Glucose 171 mg/dl; Hemoglobin A1C 7.6 % (4.5-5.6)
--- NOTE | 2019-06-10 07:01 | Critical Care Progress Note ---
Date of Service June 10, 2019 Assessment & Plan (1) DVT prophylaxis: Reason Critically Ill: Sudden onset of left sided numbness admitted to ICU post tpa administration Cardiovascular: Sudden onset of possible neurologic symptoms concerning enough for stroke to give tPA Has multiple risk factors for stroke (HLD, HTN, former smoker) but symptoms are odd and CT head w and without contrast was negative. Will continue atorvastatin and metoprolol Has been hypertensive, we will try to control blood pressure with labetalol PRN for Sytolic greater than 160 diastolic greater than 100 to make sure we stay under 185 systolic or 105 diastolic Blood pressure has been well controlled since admission to ICU MRI ordered last night showing no acute or subacute infarction though some possible microvascular ischemic disease CT, CTA, neck CTA in ER all negative Patient received tPA at 1600 yesterday, will repeat CT scan at 24 hours and step down to the floor Neuro Cam ICU negative No altered mental status Neuro exam completely normal other than subjective sensation. He can feel me everywhere I touch but everything left of patient's midline feels like pins and needles he tells me Will get neuro checks per protocol Neurology consulted will see patient today Renal Creatinine normal Mildly hypokalemic, will replete potassium GI: No abnormalities ID: No infectious Process Psych: Patient very claustrophobic, giving 1 mg ativan for MRI scan which he tolerated well DVT PPx: Contraindicated on tPA F/E/N: Heart healthy diet, passed dysphagia screen Dispo: ICU Code Status: Full (2) Hyperlipidemia: (3) Moderate aortic regurgitation: (4) GERD (gastroesophageal reflux disease): (5) Received intravenous tissue plasminogen activator (tPA) in emergency department: (6) Admitted to intensive care unit: Supervising Physician Co-Signing Physician Notes Dr. Crowley was resident physician during care of patient. I separately evaluated patient for lira portions of the history and the exam. I was present during the critical portion of medical decision making, and I discussed the case with the resident. I generally agree with the findings and plan. No significant improvement at this time. Stable for downgrade out of ICU Subjective Clayton Rodriges resting comfortably today. He is still reporting numbness on the left side including genitalia and saddle area, but does not have true numbness, but rather pins and needles sensation and altered touch sensation but still able to feel light and heavy touch. He does not endorse any headache, dizziness, melena, chest pain, shortness of breath, weakness (focal or generalized), cough, bruising, or dysphagia. He is bored and anxious to get up and walk around. Review of Systems Review of Systems: All systems reviewed & are unremarkable except as noted in HPI & below Physical Exam Constitutional: well developed, well nourished, cooperative and comfortable; no acute distress Eyes: PERRL, conjunctivae normal, anicteric sclerae No nystagmus, horizontal nor vertical Respiratory: normal respiratory effort, lungs clear to auscultation Cardiovascular: RRR, no murmur, no edema Gastrointestinal (Abdomen): normal bowel sounds, soft, nontender, no hepatosplenomegaly Skin: no rashes, warm and dry Neurologic: patellar DTR's 2+ bilat, sensation intact and PERRL, EOMI, accommodation nl, no face palsy, no dysarthria CN's II-XI intact bilaterally; + abnormal touch/pain/proprioception (Patient with altered subjective sensation to palpation left of midline) Results & Data Vital Signs (Past 12 Hours) Vital Signs Temp Pulse Pulse Resp BP BP Pulse Ox 06/10/19 06:00 65 20 113/53 L 93 06/10/19 05:00 68 18 110/56 L 92 06/10/19 04:00 36.7 C 72 16 140/78 94 06/10/19 03:00 71 18 111/49 L 96 06/10/19 02:00 63 18 110/57 L 93 06/10/19 01:20 67 16 124/57 L 94 06/10/19 00:00 36.5 C 68 20 119/65 93 06/09/19 23:30 70 18 127/68 94 06/09/19 23:00 74 20 136/64 95 06/09/19 22:30 71 14 136/73 93 06/09/19 22:00 80 20 148/82 H 95 06/09/19 21:30 90 20 175/103 H 95 06/09/19 21:00 89 18 184/102 H 94 06/09/19 20:30 79 20 175/89 H 99 06/09/19 20:00 80 20 160/81 H 95 06/09/19 19:30 80 20 152/84 H 99 06/09/19 19:16 37.1 C 79 18 155/79 H 95 06/09/19 19:00 37.1 C 84 18 148/86 H 97 06/09/19 18:47 36.7 C 79 77 18 155/79 H 95 06/09/19 18:30 98 06/09/19 18:25 79 26 H 147/82 H 97 PG Care Time/CCT Total # of Minutes Spent Total Time Spent with Patient: Total time spent is greater than 50% in coordination of care (as documented) at patient's floor/unit and/or counseling patient: Resident Activity Tracking Resident Involvement: Resident Care Provided Care Provided: Adult Hospital Medicine
[2019-06-10 07:29] LABS: Albumin Globulin Ratio 0.8 (0.9-2); Bilirubin,Total 0.5 mg/dl (0.2-1); Calcium 8.3 mg/dl (8.5-10.1); Creatinine Clr Calc Pharmacy 89.3 ml/min; Est GFR (African American) 106.5; Est GFR (Non-African American) 91.9; Globulin 3.8 gm/dl (2.5-4.0); Potassium 3.8 mmol/L (3.5-5.1); Total Protein 6.8 gm/dl (6.4-8.2)
[2019-06-10] MEDS: ATORVASTATIN 20 MG TAB PO SCH (08:25)
[2019-06-10] MEDS: METOPROLOL SUCC 25MG EXT REL TAB PO SCH (08:25)
--- NOTE | 2019-06-10 10:01 | Neurology Consultation ---
Date of Consultation June 10, 2019 Assessment & Plan (1) Stroke: This patient's presentation is consistent with an acute right thalamic infarct resulting in a pure sensory stroke syndrome affecting the left side of the body. Per my review, his brain MRI does reveal a slight increase in diffusion-weighted imaging signal within the right thalamus and a corresponding low signal on ADC map potentially suggestive of an acute infarct. The finding is subtle, however, and not mentioned in the radiologist's interpretation. I would recommend a repeat brain MRI to reassess for possible right thalamic infarct, especially in light of this patient's persistent symptomatology. As this patient was already taking daily low-dose aspirin I would recommend starting clopidogrel 75 mg/day, 24 hours after his TPA was administered. He should continue with atorvastatin. His blood pressure is appropriate. Avoid aggressive blood pressure reduction. Continue supportive medical care. I will review the results of the repeat brain MRI make any further recommendations if necessary at that time. History of Present Illness Reason for Consultation: Left-sided numbness, status post TPA Requesting Physician: FATEMEH Dash Attending Physician: Rajesh Bella MD History of Present Illness The patient is a 59-year-old male with a chief complaint of numbness and tingling affecting the entire left side of the body, including the face, chest wall, abdomen, as well as the left arm and left leg. The symptoms began acutely at around 230 yesterday afternoon and have been persistent. He denies any associated weakness of the limbs, change in vision, change in speech, headache, vertigo or dizziness. Other than her recent nonspecific URI, he denies any other significant illness. Past medical history notable for shingles occurring about 1 year ago, affecting the left side of the head and face. Past medical history notable for hypertension and hyperlipidemia. He takes a daily low-dose aspirin, atorvastatin, and metoprolol as an outpatient. His sensory symptoms were persistent during his assessment in the emergency department. A tele- stroke consultation was obtained. Although an NIH stroke scale score was only 1, he was administered TPA as his presentation was potentially concerning for stroke. This morning, the patient continues to complain of numbness affecting the entire left side of his body, including the face, chest wall, abdominal wall, left arm and left leg. No associated weakness. Additional details as below. Allergies Allergy/AdvReac Type Severity Reaction Status Date / Time Cipro Allergy Mild RASH Verified 07/24/18 07:49 ciprofloxacin Allergy Mild RASH Verified 06/09/19 16:12 cephalexin Allergy Unknown RASH Verified 06/09/19 16:12 Sulfa (Sulfonamide Allergy Unknown MOTHER AND Verified 06/09/19 16:12 Antibiotics) SISTER GETS RASH sulfite Allergy Unknown EARS FELT Verified 06/09/19 16:12 HOT AND REDNESS, FACIAL BLOTCHINESS latex AdvReac Mild "GAVE Verified 06/09/19 16:12 STRANGE SENSATION TO SKIN" Betamethasone Dipropionate Allergy Mild Unknown Uncoded 06/09/19 16:12 OIN TOPICAL STEROID Allergy Unknown RASH AND Uncoded 06/09/19 16:12 FEELS LIKE SOMTHING IN THROAT Home Medications Home Medications Medication Instructions Recorded Confirmed Type Lactobacillus acidophilus 100 mmu cells PO DAILY 06/09/19 06/09/19 History [Probiotic Acidophilus] ascorbic acid (vitamin C) [Vitamin 500 mg PO DAILY 06/09/19 06/09/19 History C] aspirin 81 mg PO DAILY 06/09/19 06/09/19 History atorvastatin 20 mg PO DAILY 06/09/19 06/09/19 History magnesium 200 mg PO DAILY 06/09/19 06/09/19 History metoprolol succinate 12.5 mg PO DAILY 06/09/19 06/09/19 History multivitamin 1 tab PO DAILY 06/09/19 06/09/19 History omega-3 fatty acids 2,000 mg PO DAILY 06/09/19 06/09/19 History pantoprazole 40 mg PO BID 06/09/19 06/09/19 History polyethylene glycol 3350 [Miralax] 17 g PO DAILY PRN 06/09/19 06/09/19 History ranitidine HCl 300 mg PO DAILY 06/09/19 06/09/19 History Patient History Medical History Bicuspid aortic valve (Chronic) Mild aortic stenosis (Chronic) Moderate aortic regurgitation (Chronic) Hyperlipidemia (Chronic) History of basal cell carcinoma (Chronic) History of hypertension (Chronic) GERD (gastroesophageal reflux disease) (Chronic) Psoriasis (Chronic) DDD (degenerative disc disease), cervical (Chronic) Diaphragmatic hernia (Chronic 11/03/11) Surgical History Hx of tonsillectomy (Chronic) H/O rotator cuff surgery (Chronic) H/O esophagogastroduodenoscopy (Chronic) "2010- Schatzki ring dilated, esophagitis, HH" Family History Father Heart disease Uncle Stroke Social History Preferred Language: Lithuanian Communication Ability: Effective Contact Lens Edge Buffer Required: No Beliefs That Will Affect Care: None Current Living Situation: Spouse Other Information That Helps Us Care for You: No Feels Safe at Home: Yes Safety Concerns: Feels Safe At This Time Smoking Status: Former smoker Tobacco Type: cigarettes ; Do You Dip or Chew Tobacco: No ; Smoking End Date: 29 yrs ago ; Second Hand Exposure: No ; Tobacco Cessation Education Requested by Patient: No Hx Alcohol Use: Yes Alcohol type: beer Alcohol Intake Frequency: Holidays /Special Occasions Hx Substance Use: No Review of Systems Constitutional: no fever, no chills and no fatigue Eyes: no blind spots and no diplopia Ear, Nose, Mouth, Throat: no ear pain, no tinnitus and no hearing loss Respiratory: no cough and no dyspnea Cardiovascular: no chest pain and no palpitations Gastrointestinal: no nausea and no vomiting Genitourinary: no dysuria and no urinary incontinence Musculoskeletal: no neck pain and no myalgia Integumentary: + rash Neurologic: as per Subjective / HPI, + loss of sensation and + paresthesia; no lack of coordination, no abnormal movements, no dizziness, no headache(s), no abnormal speech, no confusion and no memory loss Psychiatric: no depression and no anxiety Hematologic / Lymphatic: no easy bleeding and no easy bruising Physical Exam Physical Exam: The patient is a well-developed, well-nourished elderly male. He is alert and fully oriented. Recent and remote memory intact. Attention and concentration normal. Patient exhibits a normal spontaneous speech pattern as well as an age-appropriate fund of knowledge. Visual galloway full to confrontati on. Visual acuity normal. Pupils equal round reactive to light and accommodation. Eye movements normal. There is no nystagmus, ptosis, or ophthalmoplegia. There is diminished sensation along the left upper mid and lower aspects of the face as compared to the right. There is no facial droop or weakness. Hearing intact. Palate elevates to midline. Shoulder shrug intact. Tongue protrudes to midline. Sensory examination reveals a left hemisensory deficit to light touch, temperature, and vibration which respects the midline. Deep tendon reflexes are intact and symmetrical for the arms and legs. Plantar responses downgoing bilaterally. There is no dysdiadochokinesia or dysmetria [id number] or [id number] bilaterally. Ophthalmoscopic examination reveals normal-appearing optic disks and posterior segments. No papilledema or hemorrhages. Carotid pulses normal bilaterally, no bruits to auscultation. Gait and station normal. Patient exhibits normal muscle strength and tone for all 4 limbs. No atrophy. No abnormal movements observed. Results & Data Vital Signs (Past 12 Hours) Vital Signs Temp Pulse Resp BP Pulse Ox 06/10/19 09:00 36.6 C 87 20 148/79 H 98 06/10/19 08:00 36.6 C 69 20 140/75 96 06/10/19 07:00 36.3 C L 69 20 124/51 L 95 06/10/19 06:00 65 20 113/53 L 93 06/10/19 05:00 68 18 110/56 L 92 06/10/19 04:00 36.7 C 72 16 140/78 94 06/10/19 03:00 71 18 111/49 L 96 06/10/19 02:00 63 18 110/57 L 93 06/10/19 01:20 67 16 124/57 L 94 06/10/19 00:00 36.5 C 68 20 119/65 93 06/09/19 23:30 70 18 127/68 94 06/09/19 23:00 74 20 136/64 95 06/09/19 22:30 71 14 136/73 93 06/09/19 22:00 80 20 148/82 H 95 Laboratory Results WBC 9.02, hemoglobin 14.1, hematocrit 41.6, platelet count 184, sodium 139, potassium 3.8, BUN 9, creatinine 0.91, glucose 132, calcium 8.3, triglycerides 120, cholesterol 153, LDL 102, VLDL 24, HDL [address] of the head completed yesterday was negative for hemorrhage or acute process. I reviewed the images and radiologist interpretation of this test. A CT angiogram of the head and neck were unremarkable. An MRI of the brain reveals scattered T2/flair hyperintensities consistent with chronic microvascular ischemic disease. Per my review of the images, there is a slight increased signal on diffusion-weighted imaging within the right thalamus with some corresponding low signal on ADC map. This finding was not specifically mentioned in the radiologist report as the finding is quite subtle. Electrocardiogram reveals a normal sinus rhythm, 67 bpm. An echocardiogram reveals normal left ventricular wall thickness and wall motion. Ejection fraction 65 to 70%. There is a bicuspid aortic valve. There is no intra-atrial septum or defect.
[2019-06-10] MEDS: PANTOprazole 40 MG TAB PO SCH ×2 (11:25→20:33)
[2019-06-10] MEDS ORDERED: LORazepam 1 MG TAB PO SCH (13:15)
--- NOTE | 2019-06-10 15:21 | Magnetic Resonance Report ---
MR brain wo con CLINICAL HISTORY: 59 years-old Male presenting with right thalamic stroke, left-sided numbness since 2:30 PM yesterday, negative MRI yesterday. TECHNIQUE: Multisequence, multiplanar MR imaging of the brain was performed without the use of intrav enous contrast. IV contrast: None. COMPARISON: 06/09/2019. FINDINGS: Localizer images: Unremarkable. Bone marrow signal intensity within the calvarium within normal limits. Normal midline sagittal structures. Proportional ventricular and sulcal prominence, likely age-relate d parenchymal volume loss. No mass effect or midline shift. Small focus of restricted diffusion in th e right thalamus. Associated T2/FLAIR hyperintensity. No hemorrhage. Minimal periventricular and subc ortical white matter T2/FLAIR hyperintensity, nonspecific but likely indicative of chronic small vess el ischemic change. No extra-axial fluid collection. T2 skull base flow voids preserved. IMPRESSION: 1. Acute lacunar infarct in the right thalamus. Associated T2/FLAIR hyperintensity indicative of an infarct at least 6-12 hours old. No hemorrhage. The report will be called/faxed according to standard departmental protocol for a critical finding. Electronically signed by: Manjeet Ramirez M.D. 06/10/2019 3:20 PM
--- NOTE | 2019-06-10 15:45 | Magnetic Resonance Report ---
MR cervical spine wo con CLINICAL HISTORY: 59 years-old Male presenting with Paresthesias. TECHNIQUE: Multisequence, multiplanar MR imaging of the cervical spine was performed without the use of intravenous contrast. IV contrast: None. COMPARISON: CT from 2012. FINDINGS: Localizer images: Unremarkable. Straightening of normal cervical lordosis. This is likely due to multilevel degenerative changes. Manjinder tebral bodies maintain normal height, alignment, and bone marrow signal intensity. Diffuse interverte bral disc desiccation with only mild height loss in the mid to lower cervical spine. Extensive degene rative changes further detail below: C2-3: No significant neural foraminal or spinal canal narrowing. C3-4: Trace disc osteophyte complex minimally effaces the ventral thecal sac. No significant neural f oraminal narrowing. C4-5: Disc osteophyte complex and ligamentum flavum thickening moderately effaces the ventral and amberly pedro thecal sac. There is severe effacement of the left lateral recess. Contouring of the left anterol ateral spinal cord with overall flattening. Trace CSF is maintained. Uncovertebral hypertrophy result in mild right and moderate to severe left neural foraminal narrowing. C5-6: Disc osteophyte complex moderately effaces the ventral thecal sac with mild contouring of the a nterior spinal cord. Uncovertebral hypertrophy results in moderate bilateral neural foraminal narrowi ng, right greater than left. C6-7: Disc osteophyte complex moderately effaces the ventral thecal sac. Ligamentum flavum hypertroph y effaces the dorsal thecal sac. CSF is maintained laterally. Mild flattening of the spinal cord. No abnormal spinal cord signal. Uncovertebral hypertrophy results in moderate bilateral neural foraminal narrowing. C7-T1: No significant spinal canal narrowing. Mild left neural foraminal narrowing. Spinal cord maintains normal morphology and signal intensity with the exception of flattening and con touring defects as above. No convincing abnormal spinal cord signal. No epidural collection. No all luz muscle edema. Craniocervical junction normal. Remaining visualized soft tissues within normal l imits. IMPRESSION: 1. Multilevel degenerative changes with multilevel spinal canal stenoses from C4-5 through C6-7. Spi nal cord impingement is not excluded, however, no convincing evidence of myelomalacia or spinal cord edema on this exam. 2. Multilevel neural foraminal narrowing most severe from C4-5 through C6-7 and further detailed abo ve. The report will be called/faxed according to standard departmental protocol. Electronically signed by: Manjeet Ramirez M.D. 06/10/2019 3:43 PM
--- NOTE | 2019-06-10 16:29 | Hospitalist Progress Note ---
Date of Service June 10, 2019 Assessment & Plan (1) Stroke: Acute lacunar infarct in the right thalamus status post Alteplase TPA (Tissue plasminogen activator ) -This is a patient who had received TPA in the emergency room at 4 PM on 06/09/19 because of numbness and tingling affecting the entire left side of the body, including the face, chest wall, abdomen, as well as the left arm and left leg -initial studies head imaging studies of Head CT, neck/head CTA were unrevealing for acute event -initial 06/09/19 brain MRI with no acute finding as per radiology interpretation but on review by Neurology Dr. Otoole on 06/10/19 of the images there appeared to be some involvement of right thalamus -a repeat 06/10/19 [facility] MRI confirmed Acute lacunar infarct in the right thalamus -therefor the patient's presentation is consistent with an acute right thalamic infarct resulting in a pure sensory stroke syndrome affecting the left side of the body -patient completed 24 hour of ICU monitoring after TPA on 06/09/19 and can be transferred out of ICU -initial 06/09/19 neurology assessment suggested that patient may need aspirin with clopidogrel, but patient discussed with medical doctor that he was not taking aspirin daily at home; will therefor continue patient's aspirin 81 mg daily starting on 06/11/19, hold off clopidogrel for now unless recommended by neurology service -continue atorvastatin 20 mg daily for now (2) Left sided numbness: -left sided parasthesia secondary to stroke (3) History of hypertension: -Continue metoprolol -may need further anti-hypertensives if further blood pressure control needed for tomorrow (4) Hyperlipidemia: -Continue statin (5) Bicuspid aortic valve: -aortic valve is congenitally bicuspid (6) Moderate aortic regurgitation: -echocardiogram on 06/10/19 as a Mild aortic Regurgitation (7) Mild aortic stenosis: mild aortic valve stenosis, regurgitation (8) GERD (gastroesophageal reflux disease): -Continue PPI (9) DVT prophylaxis: -DVT prophylaxis: SCDs for now Subjective Denies chest pain. no no palpitations. no shortness of breath. breathing on room air. no motor deficits. no headache. no dizziness. no lightheadedness. reports left sided numbness and tingling symptoms are improving Physical Exam Constitutional: comfortable Eyes: PERRL, conjunctivae normal, anicteric sclerae EOM intact bilaterally ENMT: external ear and nose normal, oropharynx normal Neck: trachea midline, no thyromegaly Respiratory: normal respiratory effort, lungs clear to auscultation Cardiovascular: Rate/Rhythm: regular rate and regular rhythm Gastrointestinal (Abdomen): normal bowel sounds, soft, nontender, no hepatosplenomegaly Musculoskeletal: no cyanosis or clubbing, extremities motor strength 5/5 Head/Neck/Chest: normocephalic and head atraumatic Neurologic: PERRL, EOMI, accommodation nl, no face palsy, no dysarthria Psychiatric: A+Ox3, euthymic affect Results & Data Vital Signs (Past 12 Hours) Vital Signs Temp Pulse Resp BP Pulse Ox 06/10/19 16:00 36.6 C 74 20 156/88 H 96 06/10/19 14:00 36.9 C 76 20 119/67 96 06/10/19 13:00 36.6 C 76 20 119/66 95 06/10/19 12:00 37.0 C 78 20 136/74 94 06/10/19 11:00 80 18 132/66 94 06/10/19 10:00 36.6 C 67 20 132/66 97 06/10/19 09:00 36.6 C 87 20 148/79 H 98 06/10/19 08:00 36.3 C L 69 20 124/52 L 95 06/10/19 07:00 36.3 C L 69 20 124/51 L 95 06/10/19 06:00 65 20 113/53 L 93 06/10/19 05:00 68 18 110/56 L 92
[2019-06-10] MEDS ORDERED: fentaNYL citrate 100 MCG/2 ML VIAL ONE (17:13)
[2019-06-11] MEDS: METOPROLOL SUCC 25MG EXT REL TAB PO SCH (08:29)
[2019-06-11] MEDS: ATORVASTATIN 20 MG TAB PO SCH (08:29)
[2019-06-11] MEDS: PANTOprazole 40 MG TAB PO SCH (08:30)
[2019-06-11] MEDS ORDERED: ASPIRIN 81 MG ECTAB PO SCH (09:00)
[2019-06-11] MEDS ORDERED: CLOPIDOGREL BISULFATE 75 MG TAB PO SCH ×2 (09:00)
--- NOTE | 2019-06-11 14:20 | Neurology Progress Note ---
Date of Service June 11, 2019 Assessment & Plan (1) Stroke: Acute right thalamic stroke resulting in a pure sensory stroke syndrome affecting the left side of the body. No significant change in patient's assessment compared with yesterday. Patient now taking both clopidogrel and aspirin. However, I would typically recommend only a single antiplatelet agent for stroke risk reduction. If this patient was not taking aspirin consistently then I think it would be reasonable for him to restart aspirin 81 mg/day. If, however, he was taking aspirin on a consistent basis then I would recommend switching from daily low-dose aspirin to clopidogrel for secondary stroke risk reduction. This patient also appears to have diabetes mellitus which would be a significant stroke risk factor and he may need to start some medication for improved blood glucose control. Continue with PT/OT. No further immediate recommendations. Subjective Follow-up for stroke The patient is a 59-year-old male who presented to the emergency department 2 days ago with a chief complaint of numbness affecting the entire left side of his body, face arm and leg, as if a line was drawn down the midline. The sensory deficit split the face, chest and abdominal wall, as well as the genital region. His presentation was concerning for an acute sensory stroke and he was administered TPA after a tele-stroke consultation. His symptoms persisted the following day at the time of my initial assessment. An initial brain MRI had revealed a subtle area restricted diffusion within the right thalamus, although the finding was not specifically mentioned by the interpreting radiologist. However, due to the patient's persistent sensory loss I recommended a follow-up brain MRI which did reveal an acute infarct within the right thalamus is clinically suspected. The patient continues to complain of numbness affecting the entire left side of his body, unchanged compared with yesterday. He denies any associated weakness but does report some difficulty with fine motor control likely related to his sensory dysfunction. Review of Systems Constitutional: no fever and no chills Eyes: no blind spots and no diplopia Neurologic: as per Subjective / HPI and + loss of sensation; no localized weakness, no dizziness, no headache(s), no abnormal speech, no confusion and no memory loss Physical Exam Physical Exam: The patient is a well-developed, well-nourished adult male. He is alert and fully oriented. Recent and remote memory intact. Attention and concentration normal. Patient exhibits a normal spontaneous speech pattern as well as an age-appropriate fund of knowledge. Visual galloway full to confrontation. Visual acuity normal. Pupils equal round reactive to light and accommodation. Eye movements normal. There is diminished sensation along the left upper mid and lower aspects of the face. There is no facial droop or weakness. Hearing intact. Palate elevates to midline. Shoulder shrug intact. Tongue protrudes to midline. Patient continues to display a left hemisensory deficit affecting the left arm and leg as well as the chest and abdominal wall. Deep tendon reflexes are intact and symmetrical for the arms and legs. There is no dysdiadochokinesia or dysmetria [id number] or [id number] bilaterally. Results & Data Vital Signs (Past 12 Hours) Vital Signs Temp Pulse Pulse Resp BP Pulse Ox 06/11/19 12:26 36.7 C 100 H 18 131/76 95 06/11/19 09:49 76 06/11/19 07:45 36.5 C 79 20 150/75 H 94 06/11/19 03:11 36.6 C 65 18 123/70 96 Laboratory Results Blood glucose 156, hemoglobin A1c 7.6 Diagnostic Findings A repeat brain MRI completed yesterday reveals an acute lacunar infarct within the right thalamus. No associated hemorrhage. An echocardiogram reveals normal left ventricular wall thickness and wall motion, ejection fraction 65 to 70%. There is no atrial septal defect.
[2019-06-11] MEDS ORDERED: STROKE PATIENT DISCHARGE STA (16:26)
--- NOTE | 2019-06-11 16:27 | Discharge Summary ---
Date of Service June 11, 2019 Admission HPI Per Admitting Provider 59-year-old male who presents the ED for evaluation of left-sided numbness. Patient reports that around 230, he had sudden onset of left-sided numbness. He denies any associated weakness, facial droop, drooling, difficulty with speech or comprehension. He was able to ambulate without difficulty. No headache, blurred or double vision. Denies lightheadedness, dizziness, syncopal event. He denies any recent neck trauma. No chest pain or shortness of breath. He denies abdominal pain, nausea, vomiting, diarrhea. No other recent illness, fever, chills. He denies any urinary symptoms. In the ED, stroke alert was called. Given persistent numbness, stroke neurologist recommended TPA. Patient received TPA and has not had any change in his symptoms. Labs are unremarkable. Admission Exam Per Admitting Provider Constitutional: WD/WN, vitals as above Eyes: PERRL, conjunctivae normal, anicteric sclerae ENMT: Ears: no external ear abnormality Nose: no external nose abnormality Mouth: + gingival abnormality (Mild gum bleeding noted) Respiratory: normal respiratory effort, lungs clear to auscultation Cardiovascular: Rate/Rhythm: regular rate and regular rhythm Heart Sounds: + murmur (Systolic) Vessels: normal peripheral pulses Extremities: no edema Gastrointestinal (Abdomen): normal bowel sounds, soft, nontender, no hepatosplenomegaly Musculoskeletal: no cyanosis or clubbing, extremities motor strength 5/5 Skin: no rashes, warm and dry Neurologic: PERRL, EOMI, accommodation nl, no face palsy, no dysarthria moves all extremities and awake Motor/Sensory: + sensory deficit (Decreased sensation involving the left side of the body); no pronator drift Cranial Nerves: tongue midline and able to elevate shoulders bilaterally Coordination: normal [id number] test and normal agzo-um-jehl test Psychiatric: A+Ox3, euthymic affect Principal Diagnosis Acute right thalamic stroke Discharge Data Allergies Allergy/AdvReac Type Severity Reaction Status Date / Time Cipro Allergy Mild RASH Verified 04/09/18 07:49 ciprofloxacin Allergy Mild RASH Verified 06/09/19 16:12 cephalexin Allergy Unknown RASH Verified 06/09/19 16:12 Sulfa (Sulfonamide Allergy Unknown MOTHER AND Verified 06/09/19 16:12 Antibiotics) SISTER GETS RASH sulfite Allergy Unknown EARS FELT Verified 06/09/19 16:12 HOT AND REDNESS, FACIAL BLOTCHINESS latex AdvReac Mild "GAVE Verified 06/09/19 16:12 STRANGE SENSATION TO SKIN" Betamethasone Dipropionate Allergy Mild Unknown Uncoded 06/09/19 16:12 OIN TOPICAL STEROID Allergy Unknown RASH AND Uncoded 06/09/19 16:12 FEELS LIKE SOMTHING IN THROAT Consultations 06/09/19 16:44 ED Decision to Admit Stat 06/09/19 18:47 Consult Case Management - Discharge Planning Routine Consult Geometry Professor Routine Consult Neurology Routine Ordered Studies 06/09/19 15:08 CT angio head w con Stat CT angio neck with con Stat CT head/brain wo con Stat 06/09/19 18:47 MR brain wo/w con Routine 06/10/19 10:03 MR brain wo con Routine 06/10/19 10:37 MR cervical spine wo con Routine Hospital Course (1) Stroke: 59-year-old man presented to the ER with left-sided numbness. He was admitted to the hospitalist group and work-up including a brain MRI revealed an acute lacunar infarct in the right thalamus. He did receive TPA and was in the ICU for 24 hours as a result. A cervical spine MRI was also performed in the setting of history of radiculopathy prior to strokelike symptoms. Multilevel degenerative changes with multilevel spinal canal stenosis from C4-5 through C6- 7 were noted. This study was reviewed with the spine surgeon insulation helper and no spinal cord impingement was seen. Outpatient follow-up with an spine surgeon was recommended if symptoms persisted. Neurology was consulted and recommended continuing with atorvastatin and antiplatelet therapy for stroke risk reduction. An echocardiogram was performed revealing no evidence for an atrial septal defect. At time of discharge a face to face examination was performed revealing an afebrile and hemodynamically stable man with persistent L paresthesias 2/2 to stroke which had been an unchanged residual symptom since the onset of stroke symptoms. He otherwise had no gross neurologic deficits. Swallowing, speaking and ambulating capability was at baseline. Heart and lung exam were unremarka ble and he was discharged in stable condition with close primary care follow-up recommended. During the hospitalization he had no arrhythmias seen on telemetry, however, an outpatient event monitor is recommended to ensure no occult arrhythmias as a cause of stroke. Total Time Total Time Spent Total Time Spent (In Minutes): 60 Total Time Includes: Examination of the Patient, Discharge Planning, Medication Reconciliation, Communication With Other Providers and Other Discharge Plan Discharge Items Patient Disposition: Home - Self-Care Reason For Visit: LEFT SIDED NUMBNESS,RECEIVED TPA Discharge Diagnosis: Acute right thalamic stroke Activity: Resume your previous activity Lifting: Gradually increase as tolerated Non-emergency contact: Primary Care Provider Call non-emergency contact if: you have any medication questions, your symptoms worsen, your pain is not controlled, your pain is worsening, your pain is unusual for you, your pain is concerning for you and you have a fever Follow-up/Referrals: Yong Otoole MD [Physician] - Michael Cisneros DO [Primary Care Provider] - Diet: Heart Healthy Addtl Attending Provider Instructions: Please take all medications as instructed on discharge list below. It is recommended that you follow-up with your primary care physician (PCP) within one week of discharge from the hospital. At this visit, it is recommended that you get set up for an EVENT MONITOR (ZIO PATCH) to ensure you have no underlying arrhythmia that may have contributed to your stroke. Also, this visit is important to check your blood pressure, monitor your symptoms and track your progress on any new medications. You are scheduled to see your PCP: 06/16/2019 11:00 AM Gladys Murphy MD General Internal Medicine [facility] You were seen by Dr. Otoole from [facility] while in the hospital who recommends aspirin as monotherapy moving forward for secondary stroke prevention. As we discussed, you may opt to see Dr. Zelalem Edmonds, Orthopedic Spine Surgeon, as an outpatient for discussion about your cervical spine if your issues with radiculopathy come back in your arms. It was a pleasure taking care of you! Please call if you have any questions or problems. You can reach a [facility] hospitalist on duty at [facility] 24 hours a day by calling [phone]. Take care of yourself. Elvia Brown DO [facility] Hospitalist Pending Studies at Discharge: No Stand-Alone Forms: Medications to Prevent Stroke, My [facility], Work/School Release (Inpt) Medications and DC Order Prescriptions: New atorvastatin [Lipitor] 80 mg tablet 80 mg PO HS Qty: 30 RF: 2 Continued ranitidine HCl 300 mg tablet 300 mg PO DAILY RF: 0 pantoprazole 40 mg tablet,delayed release (DR/EC) 40 mg PO BID RF: 0 metoprolol succinate 25 mg tablet extended release 24 hr 12.5 mg PO DAILY RF: 0 multivitamin Tablet 1 tab PO DAILY RF: 0 omega-3 fatty acids 1,000 mg Capsule 2,000 mg PO DAILY RF: 0 polyethylene glycol 3350 [Miralax] 17 gram Powder In Packet 17 g PO DAILY PRN (Reason: Constipation) RF: 0 ascorbic acid (vitamin C) [Vitamin C] 500 mg Tablet 500 mg PO DAILY RF: 0 magnesium 200 mg Tablet 200 mg PO DAILY RF: 0 Probiotic Acidophilus 1.5 mg (250 million cell) Capsule 100 mmu cells PO DAILY RF: 0 aspirin 81 mg Tablet,Delayed Release (Dr/Ec) 81 mg PO DAILY Qty: 90 RF: 1 Discontinued atorvastatin 20 mg tablet 20 mg PO DAILY RF: 0 Discharge Orders: Discharge Order (Routine); Ordered 06/11/19 Ordered By: Elvia Tyler/Other Patient Handouts: Diabetes Heart Disease, Diabetes Salt Maker Complications, Diabetes Resources, Diabetes Type 2 Coping, Diabetes Healthy Meals, Diabetes Carbs, Diabetes Exercise Benefits, Diabetes Exercise Get Started, Diabetes Activity Tips, Diabetes Manage A1C Test Admission Data Admit Date/Time: 06/09/19 18:30 Attending Provider: Elvia Brown Admit Provider: Miguel Burnette Primary Care Provider: Michael Cisneros Other Providers: Yong Graff ; Yong Otoole Other Interventions: Discharge Summary Assessment (RN) Last Done: 06/11/19 16:45 DC Date/Time DO NOT enter until pt leaves facility: 06/11/19 17:21
--- NOTE | 2019-06-11 17:39 | Pharmacy Report ---
Pharmacist Stroke Counseling - Date of Service June 11, 2019 - Scope: Pharmacy has been consulted to provide medication discharge counseling for this patient admitted with acute right thalamic stroke as per the Pharmacist Discharge Counseling for Stroke Patients Protocol. - Medications on Discharge: Home Medications Medication Instructions Recorded Confirmed Probiotic Acidophilus 100 mmu cells PO DAILY 06/09/19 06/09/19 ascorbic acid (vitamin C) [Vitamin 500 mg PO DAILY 06/09/19 06/09/19 C] magnesium 200 mg PO DAILY 06/09/19 06/09/19 metoprolol succinate 12.5 mg PO DAILY 06/09/19 06/09/19 multivitamin 1 tab PO DAILY 06/09/19 06/09/19 omega-3 fatty acids 2,000 mg PO DAILY 06/09/19 06/09/19 pantoprazole 40 mg PO BID 06/09/19 06/09/19 polyethylene glycol 3350 [Miralax] 17 g PO DAILY PRN 06/09/19 06/09/19 ranitidine HCl 300 mg PO DAILY 06/09/19 06/09/19 New Rx's Medication Instructions Recorded aspirin 81 mg PO DAILY #90 tab 06/11/19 atorvastatin [Lipitor] 80 mg PO HS #30 tab 06/11/19 - Action: The above medications, specifically ones for stroke treatment/prophylaxis, have been reviewed in detail with the patient and/or patient metals sales representative(s) prior to discharge. This includes indication, common adverse reactions, drug interactions, and medication administration. Medication counseling has been employed using the teach-back method to ensure understanding. - Outcome: The patient and/or patient metals sales representative(s) have demonstrated understanding of the medications. Please note, they are aware that the pharmacist will call them within 72 hours post-discharge to confirm that the appropriate medications are being taken and answer any further medication related questions the patient might have at that time. Contact information Individual to be contacted: Patient Phone number: [phone] Best time to call: Anytime of Day Additional comments: - Focused on the importance of medication adherence as patient was not taking daily aspirin at home prior to admission - Instructed patient that he can buy any brand of low-dose aspirin (81 mg) and it does not require a prescription - Patient previously on Atorvastatin 20 mg at home so he was familiar with medication, counseled on dose change to 80 mg daily Thank you for allowing pharmacy to be involved in the care of this patient. Please call [phone] or [phone] with any additional questions - Discharge Information: Pharmacists Notes:: Understood well. Focus on medication adherence
--- NOTE | 2019-06-13 13:13 | Pharmacy Report ---
Pharmacist Post D/C Phone Note - Phone Note: Date of phone call: June 13, 2019. Individual with whom pharmacist spoke to: PAUL MALDONADO The following questions were reviewed during the phone call with responses listed below each: Can you tell me the medications that you are currently taking as well as when and how you take each medication? -See Table Below When have you missed any doses of your medications? - Patient reports that he has not missed his medications since coming home from the hospital What side effects are you having from your medications, specifically, the new medications you were started on? - No side effects to report What questions do you have about your medications? - No questions at this time. What problems are you having obtaining your medications? - No problems identified When is your next appointment with your primary care doctor? - Patient reports it is soon, thinks it is the . As per the Pharmacist Discharge Counseling for Stroke Patients Protocol, this phone call has been completed within 72 hours of discharge. Thank you for allowing us to be involved in the care of this patient. Thank you for allowing us to be involved in the care of this patient. - Home Medications: Home Medications Medication Instructions Recorded Confirmed Probiotic Acidophilus 100 mmu cells PO DAILY 06/09/19 06/09/19 ascorbic acid (vitamin C) [Vitamin 500 mg PO DAILY 06/09/19 06/09/19 C] magnesium 200 mg PO DAILY 06/09/19 06/09/19 metoprolol succinate 12.5 mg PO DAILY 06/09/19 06/09/19 multivitamin 1 tab PO DAILY 06/09/19 06/09/19 omega-3 fatty acids 2,000 mg PO DAILY 06/09/19 06/09/19 pantoprazole 40 mg PO BID 06/09/19 06/09/19 polyethylene glycol 3350 [Miralax] 17 g PO DAILY PRN 06/09/19 06/09/19 ranitidine HCl 300 mg PO DAILY 06/09/19 06/09/19 New Rx's Medication Instructions Recorded aspirin 81 mg PO DAILY #90 tab 06/11/19 atorvastatin [Lipitor] 80 mg PO HS #30 tab 06/11/19
== END 2019-06-11 17:21 | disposition home or self-care (01) | DRG 62 ==
LOC: ED 15:06 → SUATTDRO 18:07 → 1E 18:07 → SUATTDRO 18:30 → 1E 18:31 → 2N 06-10 16:27

== ENCOUNTER 2022-07-03 08:36 | Inpatient (IN) ==
[2022-07-03] MEDS ORDERED: ALBUT/IPRATROP 3MG/0.5MG NEB 3 ML VIAL INH STA (08:58)
--- NOTE | 2022-07-03 09:07 | Emergency Department Note ---
History of Present Illness General Chief complaint: Abnormal Labs/Diagnostic Testing Stated complaint: POSSIBLE BLOOD CLOT, ABNORMAL LAB Time Seen by Provider: 07/03/22 08:46 History of Present Illness Maximum Pain Intensity: 0 62-year-old male presents to the ED with a chief complaint of a cough for the past 2 to 3 weeks. He states that he brings up some sputum once in a while. The patient states that his shortness of breath with exertion has worsened recently. He also reports a little discomfort in his chest especially associate with a cough. Occasionally has some posttussive emesis. Reports no fevers. No additional respiratory respiratory symptoms. No abdominal pains. No pain in the legs or calf swelling. He was seen at his PCPs office today and with exertion had a pulse ox in the 80s percent range. He was sent here for further evaluation. He has had 3 COVID vaccines. Home Medications Medication Instructions Recorded Confirmed Type metoprolol succinate 25 mg 25 mg PO QAM 06/09/19 12/23/21 History tablet,extended release 24 hr multivitamin 1 tab PO QAM 06/09/19 12/23/21 History cholecalciferol (vitamin D3) 50 50 mcg PO QAM 05/26/20 12/23/21 History mcg (2,000 unit) capsule rosuvastatin 40 mg sprinkle capsule 40 mg PO QAM 05/26/20 12/23/21 History amlodipine 5 mg tablet 5 mg PO QAM 12/19/21 12/23/21 History aspirin 81 mg tablet,delayed 81 mg PO QAM 12/19/21 12/23/21 History release dulaglutide 1.5 mg/0.5 mL 1.5 mg subcut WK 12/19/21 12/23/21 History subcutaneous pen injector (Trulicity) omeprazole 40 mg capsule,delayed 40 mg PO QAM 12/19/21 12/23/21 History release Allergies Allergy/AdvReac Type Severity Reaction Status Date / Time ciprofloxacin Allergy Severe Anaphylaxis Verified 12/23/21 13:10 betamethasone Allergy Intermediate Rash/throat Verified 12/23/21 13:10 irritation cephalexin Allergy Mild RASH, Verified 12/23/21 13:10 "makes voice hoarse" sulfite Allergy Mild EARS FELT Verified 12/23/21 13:10 HOT AND REDNESS, FACIAL BLOTCHINESS Sulfa (Sulfonamide Allergy Unknown Unknown Verified 12/23/21 13:10 Antibiotics) latex AdvReac Mild "GAVE Verified 12/23/21 13:10 STRANGE SENSATION TO SKIN" Past Med/Surg History Medical History Bicuspid aortic valve Cardiac murmur follows with Dr. Gt BROTHERS (degenerative disc disease), cervical Diabetes mellitus, type 2 Diaphragmatic hernia (11/03/11) GERD (gastroesophageal reflux disease) History of basal cell carcinoma on face--had mohs procedure History of COVID-19 diagnosed 07/2020--no issues now History of hypertension History of kidney stones Hyperlipidemia Mild aortic stenosis Moderate aortic regurgitation Psoriasis Stroke (~2018) no deficits except for intermittent tingling sensations--no neurologist currently Surgical History H/O esophagogastroduodenoscopy "2009- Schatzki ring dilated, esophagitis, HH" H/O rotator cuff surgery right History of cardiac cath (~10/2016) @ [facility]--no stents History of colonoscopy History of Mohs micrographic surgery for skin cancer History of tooth extraction Hx of tonsillectomy Family History Father Heart disease Uncle Stroke Other No family history of adverse response to anesthesia Social History Smoking Status: Never smoker Second Hand Exposure: No; Hx Alcohol Use: Yes Alcohol type: beer Hx Substance Use: No Preferred Language: Upper Sorbian Communication Ability: Effective Veterinary Parasitologist Required: No Beliefs That Will Affect Care: None Current Living Situation: Spouse Feels Safe at Home: Yes Assistive Devices: Glasses Review of Systems A total of 10 systems reviewed and were otherwise negative Physical Exam Vital Signs Vital Signs - 24 hr 07/03/22 08:41 07/03/22 08:59 07/03/22 09:46 Temperature 36.0 C L Temperature Source Oral Pulse Rate 98 H Pulse Rate [Finger] Respiratory Rate 20 Respiratory Effort / Characteristics Non-Labored Respiratory Depth Normal Blood Pressure 153/89 H Blood Pressure [Left Arm] Blood Pressure Mean 110 Blood Pressure Mean [Left Arm] Pulse Oximetry 93 95 85 L Oxygen Delivery Method Room Air Room Air Room Air Sepsis Recent Fever Within 48 Hours No Sepsis New/Unexplained Change in Mental Status N/A Sepsis Action Taken by Nursing No Action Required Oxygen Flow Rate - Titration 3 Pulse Oximetry Post Tiitration 92 07/03/22 10:42 Temperature Temperature Source Pulse Rate Pulse Rate [Finger] 88 Respiratory Rate 22 Respiratory Effort / Characteristics Respiratory Depth Blood Pressure Blood Pressure [Left Arm] 141/73 H Blood Pressure Mean Blood Pressure Mean [Left Arm] 95 Pulse Oximetry 95 Oxygen Delivery Method Room Air Sepsis Recent Fever Within 48 Hours Sepsis New/Unexplained Change in Mental Status Sepsis Action Taken by Nursing Oxygen Flow Rate - Titration Pulse Oximetry Post Tiitration CONSTITUTIONAL/VITAL SIGNS: Reviewed / noted above. GENERAL: Non-toxic in appearance. INTEGUMENTARY: Warm, dry, and [place]. HEAD: Normocephalic. EYES: without scleral icterus or trauma. ENT/OROPHARYNX: clear and moist. LYMPHADENOPATHY/NECK: Is supple without lymphadenopathy or meningismus. RESPIRATORY: Some crackles noted in the bases right greater than left to auscultation bilaterally. No increased work of breathing. CARDIOVASCULAR: Regular rate and rhythm. GI/ABDOMEN: Soft and nontender. No organomegaly or pulsatile mass. EXTREMITIES: Warm and well perfused. BACK: No CVA tenderness. NEUROLOGICAL: Intact without focal deficits. PSYCHIATRIC: normal affect. MUSCULOSKELETAL: Normally developed with good muscle tone. TRIAGE NURSING DOCUMENTATION REVIEWED. Course Administered Medications Discontinued Medications Albuterol (Albut/Ipratrop 3mg/0.5mg Neb 3 Ml Vial) 3 ml INH NOW STA Stop: 07/03/22 08:59 Last Admin: 07/03/22 09:10 Dose: 3 ml Documented By: PENNIE Ioversol (Optiray 320 500ml) 118 ml IV ONCE ONE Stop: 07/03/22 09:41 Last Admin: 07/03/22 09:40 Dose: 118 ml Documented By: CAROLINE Medical Decision Making Differential Diagnosis The differential was considered includes acute myocardial infarction, acute coronary syndrome, myocarditis, pericarditis, pericardial effusions /tamponad, esophageal perforation, pulmonary embolism, pneumonia, pneumothorax, cardiomyopathy, congestive heart, anemia , COPD/asthma exacerbation. Medical Records Attestation: I reviewed the patient's medical records. Home Medications Current Medication List: was personally reviewed by me Laboratory Data Attestation: I reviewed the patient's lab results. Result diagrams: 07/03/22 08:55 07/03/22 08:55 Lab Results 07/03/22 07/03/22 07/03/22 Range/Units 08:55 08:55 08:55 WBC 9.47 (4.8-10.8) K/ul RBC 5.81 (4.63-6.08) M/uL Hgb 16.9 (14.0-18.0) g/dl Hct 49.1 (40.1-51.0) % MCV 84.5 (80.0-100.0) fL MCH 29.1 (25.0-34.0) pg MCHC 34.4 (32.0-36.0) g/dL RDW Std Deviation 42.5 (36.4-46.3) fL RDW Coeff of Fatimah 13.8 (11.5-14.5) % Plt Count 230 (130-400) K/uL MPV 9.0 L (9.4-12.4) fL Immature Gran % (Auto) 0.6 % Neut % (Auto) 53.9 % Lymph % (Auto) 36.9 % Walton % (Auto) 6.5 % Eos % (Auto) 1.6 % Baso % (Auto) 0.5 % Neut # (Auto) 5.10 (1.4-6.5) K/uL Lymph # (Auto) 3.49 H (1.2-3.4) K/uL Walton # (Auto) 0.62 (0.24-0.82) K/uL Eos # (Auto) 0.15 (0-0.50) K/uL Baso # (Auto) 0.05 (0-0.2) K/uL Immature Gran # (Auto) 0.06 H (0.00-0.02) K/uL PT 11.3 (9.0-12.0) Seconds INR 1.1 (0.9-1.1) APTT 29.0 (21.0-31.0) Seconds PTT Ratio 1.1 D-Dimer 440 (0-500) ug/L FEU Sodium 136 (136-145) mmol/L Potassium 3.7 (3.5-5.1) mmol/L Chloride 103 (98-107) mmol/L Carbon Dioxide 24 (21-32) mmol/L Anion Gap 9 (3-11) BUN 18 (6-23) mg/dl Creatinine 1.00 (0.6-1.4) mg/dl Est Cr Clr Drug Dosing 77.0 ml/min Est GFR ( Amer) 93.1 ml/min Est GFR (Non-Af Amer) 80.3 ml/min BUN/Creatinine Ratio 18.0 (10-20) Glucose 146 H (70-99(Fasting)) mg/dl Calcium 9.3 (8.5-10.1) mg/dl Magnesium 1.7 (1.7-2.4) mg/dl Total Bilirubin 0.5 (0.2-1.0) mg/dl AST 25 (13-39) U/L ALT 39 (7-52) U/L Alkaline Phosphatase 91 (34-104) U/L Troponin I High Sens 4.4 (0-20) pg/ml Total Protein 8.4 H (6.0-8.3) gm/dl Albumin 4.0 (3.4-5.0) gm/dl Globulin 4.4 H (2.5-4.0) gm/dl Albumin/Globulin Ratio 0.9 (0.9-2) SARS-CoV-2, RNA, NAAT (NEGATIVE) 07/03/22 Range/Units 09:15 WBC (4.8-10.8) K/ul RBC (4.63-6.08) M/uL Hgb (14.0-18.0) g/dl Hct (40.1-51.0) % MCV (80.0-100.0) fL MCH (25.0-34.0) pg MCHC (32.0-36.0) g/dL RDW Std Deviation (36.4-46.3) fL RDW Coeff of Fatimah (11.5-14.5) % Plt Count (130-400) K/uL MPV (9.4-12.4) fL Immature Gran % (Auto) % Neut % (Auto) % Lymph % (Auto) % Walton % (Auto) % Eos % (Auto) % Baso % (Auto) % Neut # (Auto) (1.4-6.5) K/uL Lymph # (Auto) (1.2-3.4) K/uL Walton # (Auto) (0.24-0.82) K/uL Eos # (Auto) (0-0.50) K/uL Baso # (Auto) (0-0.2) K/uL Immature Gran # (Auto) (0.00-0.02) K/uL PT (9.0-12.0) Seconds INR (0.9-1.1) APTT (21.0-31.0) Seconds PTT Ratio D-Dimer (0-500) ug/L FEU Sodium (136-145) mmol/L Potassium (3.5-5.1) mmol/L Chloride (98-107) mmol/L Carbon Dioxide (21-32) mmol/L Anion Gap (3-11) BUN (6-23) mg/dl Creatinine (0.6-1.4) mg/dl Est Cr Clr Drug Dosing ml/min Est GFR ( Amer) ml/min Est GFR (Non-Af Amer) ml/min BUN/Creatinine Ratio (10-20) Glucose (70-99(Fasting)) mg/dl Calcium (8.5-10.1) mg/dl Magnesium (1.7-2.4) mg/dl Total Bilirubin (0.2-1.0) mg/dl AST (13-39) U/L ALT (7-52) U/L Alkaline Phosphatase (34-104) U/L Troponin I High Sens (0-20) pg/ml Total Protein (6.0-8.3) gm/dl Albumin (3.4-5.0) gm/dl Globulin (2.5-4.0) gm/dl Albumin/Globulin Ratio (0.9-2) SARS-CoV-2, RNA, NAAT NEGATIVE (NEGATIVE) Imaging Data Radiologist's Impression: Chest CTA 07/03/22 08:58 CT angio chest PE protocol CT DOSE: 382.78 mGy.cm HISTORY: 62 years-old Male with Dyspnea. Acute shortness of breath TECHNIQUE: Multiple CTA images of the chest were obtained after the intravenous administration of 118 ml Optiray. Coronal and sagittal MIPS were obtained from the axial data set and were submitted for review. All measurements were obtained according to NASCET criteria. A dose lowering technique was utilized adhering to the principles of ALARA. COMPARISON: CT chest 02/22/2016. FINDINGS: CTA: Heart is normal in size. There is no pericardial effusion. Mild coronary artery calcifications. No thoracic aortic aneurysm or dissection. There is patency of the imaged great vessels. Unremarkable pulmonary artery. The segmental and subsegmental branches are not well evaluated secondary to contrast bolus timing and respiratory motion artifact. No filling defects identified to suggest thromboembolic disease. CT CHEST: No thyroid nodule. Subcentimeter borderline enlarged mediastinal and hilar lymph nodes are favored to be reactive. There is no pneumothorax, pleural effusion, airspace consolidation or overt pulmonary edema. Mild subpleural bleb formation versus paraseptal emphysema of the lung apices. 8 mm fissural nodule within the right midlung on image 157 series 4 previously measured 7 mm. This is suggestive of a benign lymph node. Mild bilateral mosaic attenuation. Ill-defined centrilobular multifocal groundglass opacities. Additionally millimeters fissural nodule of the right midlung image 112 previous and measured 7 mm. This is also suggestive of a probable benign lymph node. Central airways are clear. There are 2 solid nodules within the right upper lobe measuring up to 3 mm on image 219, likely benign. No acute process of the imaged upper abdomen. Degenerative changes of the shoulders and spine. IMPRESSION: 1. No pulmonary emboli identified. 2. Mild air trapping is noted with ill-defined bilateral centrilobular groundglass opacities. Differential considerations would include hypersensitivity pneumonitis versus an infectious pneumonitis. 3. Bilateral fissural nodules measuring up to 8 mm are suggestive of benign lymph nodes. 4. Borderline enlarged mediastinal and hilar lymph nodes, likely reactive. ACT 112: Negative or not required by law. The above report was generated using voice recognition software. It may contain grammatical, syntax or spelling errors. Electronically signed by: Ashu Pfeiffer M.D. 07/03/2022 10:39 AM Chest X-Ray 07/03/22 08:58 XR chest 1V portable HISTORY: Cough. Dyspnea COMPARISON: Chest 06/09/2019. FINDINGS: No pneumothorax. No pleural effusions. The heart is normal in size. Subtle perihilar hazy densities are noted with mild interstitial thickening. Otherwise, no focal lung consolidations. IMPRESSION: Subtle perihilar hazy densities with mild interstitial thickening. This is nonspecific could be due to a low-grade pneumonitis or developing pulmonary edema. ACT 112: Negative or not required by law. Electronically signed by: Richard Parker M.D. 07/03/2022 9:55 AM ECG Data Attestation: I personally reviewed and interpreted this ECG as follows: Additional Comments: Twelve-lead EKG: Per my interpretation shows a sinus rhythm at a rate of 89 with occasional PVCs. No ST elevation. Normal QTC. MDM Narrative 62-year-old male presents with cough for several weeks with increasing shortness of breath that is worse with exertion. Vital signs reveal mild hypertension. The patient's chest x-ray and CT scan show findings suggestive of hypersensitivi ty pneumonitis versus infectious pneumonitis. EKG shows a sinus rhythm with occasional PVCs. He does have a history of PVCs. His CBC and chemistry panel was unremarkable. A troponin and IVM were negative. COVID was negative. The patient will be seen by the hospitalist for further evaluation and care. At rest the patient's oxygen saturations sometimes drop into the high 80s. With exertion his pulse ox drops into the low to mid 80s. Impression & Plan Pneumonia, Hypoxia Discharge Plan Visit Data Chief Complaint: Abnormal Labs/Diagnostic Testing Stated Complaint: POSSIBLE BLOOD CLOT, ABNORMAL LAB ED Provider: Ramon Briscoe Discharge Problem: Pneumonia, Hypoxia Patient Disposition: Being Evaluated by Hospitalist Forms Stand Alone Forms: [facility] Prescriptions Prescriptions: No Action cholecalciferol (vitamin D3) 50 mcg (2,000 unit) capsule 50 mcg PO QAM rosuvastatin 40 mg capsule, sprinkle 40 mg PO QAM metoprolol succinate 25 mg tablet extended release 24 hr 25 mg PO QAM multivitamin Tablet 1 tab PO QAM amlodipine 5 mg Tablet 5 mg PO QAM omeprazole 40 mg Capsule,Delayed Release(Dr/Ec) 40 mg PO QAM Trulicity 1.5 mg/0.5 mL Pen Injector 1.5 mg SUBCUT WK Label Comments: takes on mondays aspirin 81 mg tablet,delayed release (DR/EC) 81 mg PO QAM Referrals Referrals: Yong Valladares MD [ED Physician] -
[2022-07-03 09:09] LABS: Basophils # (auto) 0.05 K/uL (0-0.2); Basophils % (auto) 0.5 %; Eosinophils # (auto) 0.15 K/uL (0-0.50); Eosinophils % (auto) 1.6 %; Hematocrit (blood only) 49.1 % (40.1-51.0); Hemoglobin 16.9 g/dl (14.0-18.0); Immature Granulocytes # (auto) 0.06 K/uL (0.00-0.02); Immature Granulocytes % (auto) 0.6 %; Lymphocytes # (auto) 3.49 K/uL (1.2-3.4); Lymphocytes % (auto) 36.9 %; Mean Corpuscular Hemoglobin 29.1 pg (25.0-34.0); Mean Corpuscular Hgb Conc 34.4 g/dL (32.0-36.0); Mean Corpuscular Volume 84.5 fL (80.0-100.0); Monocytes # (auto) 0.62 K/uL (0.24-0.82); Monocytes % (auto) 6.5 %; Neutrophils % (auto) 53.9 %; Platelet Count 230 K/uL (130-400); RDW Coefficient of Variation 13.8 % (11.5-14.5); RDW Standard Deviation 42.5 fL (36.4-46.3); Red Blood Count 5.81 M/uL (4.63-6.08); White Blood Count 9.47 K/ul (4.8-10.8)
[2022-07-03 09:23] LABS: D Dimer 440 ug/L FEU (0-500); INR 1.1 (0.9-1.1); Partial Thromboplastin Ratio 1.1; Prothrombin Time 11.3 Seconds (9.0-12.0)
[2022-07-03 09:31] LABS: Albumin Globulin Ratio 0.9 (0.9-2); Bilirubin,Total 0.5 mg/dl (0.2-1.0); Calcium 9.3 mg/dl (8.5-10.1); Est GFR (African American) 93.1 ml/min; Est GFR (Non-African American) 80.3 ml/min; Globulin 4.4 gm/dl (2.5-4.0); Magnesium 1.7 mg/dl (1.7-2.4); Potassium 3.7 mmol/L (3.5-5.1); Total Protein 8.4 gm/dl (6.0-8.3)
[2022-07-03 09:35] LABS: Troponin I High Sensitivity 4.4 pg/ml (0-20)
--- NOTE | 2022-07-03 09:37 | Electrocardiogram Report ---
Test Reason : Blood Pressure : / mmHG Vent. Rate : 089 BPM Atrial Rate : 089 BPM P-R Int : 158 ms QRS Dur : 100 ms QT Int : 360 ms P-R-T Axes : 035 -05 -03 degrees QTc Int : 438 ms Sinus rhythm with occasional Premature ventricular complexes Otherwise normal ECG When compared with ECG of 10-JUN-2019 07:52, Premature ventricular complexes are now Present Confirmed by Clayton Lilly ([id number]) on 07/03/2022 9:37:26 AM Referred By: REFERRED SELF Confirmed By:Clayton Lilly
[2022-07-03] MEDS ORDERED: OPTIRAY 320 500ml IV ONE (09:40)
--- NOTE | 2022-07-03 09:56 | XRay Report ---
XR chest 1V portable HISTORY: Cough. Dyspnea COMPARISON: Chest 06/09/2019. FINDINGS: No pneumothorax. No pleural effusions. The heart is normal in size. Subtle perihilar hazy d ensities are noted with mild interstitial thickening. Otherwise, no focal lung consolidations. IMPRESSION: Subtle perihilar hazy densities with mild interstitial thickening. This is nonspecific could be due t o a low-grade pneumonitis or developing pulmonary edema. ACT 112: Negative or not required by law. Electronically signed by: Richard Parker M.D. 07/03/2022 9:55 AM
--- NOTE | 2022-07-03 10:40 | CT Scan Report ---
CT angio chest PE protocol CT DOSE: 382.78 mGy.cm HISTORY: 62 years-old Male with Dyspnea. Acute shortness of breath TECHNIQUE: Multiple CTA images of the chest were obtained after the intravenous administration of 118 ml Optiray. Coronal and sagittal MIPS were obtained from the axial data set and were submitted for review. All measurements were obtained according to NASCET criteria. A dose lowering technique was u tilized adhering to the principles of ALARA. COMPARISON: CT chest 02/22/2016. FINDINGS: CTA: Heart is normal in size. There is no pericardial effusion. Mild coronary artery calcifications. No th oracic aortic aneurysm or dissection. There is patency of the imaged great vessels. Unremarkable pulm onary artery. The segmental and subsegmental branches are not well evaluated secondary to contrast ellie yue timing and respiratory motion artifact. No filling defects identified to suggest thromboembolic d isease. CT CHEST: No thyroid nodule. Subcentimeter borderline enlarged mediastinal and hilar lymph nodes are favored to be reactive. There is no pneumothorax, pleural effusion, airspace consolidation or overt pulmonary e mike. Mild subpleural bleb formation versus paraseptal emphysema of the lung apices. 8 mm fissural no dule within the right midlung on image 157 series 4 previously measured 7 mm. This is suggestive of a benign lymph node. Mild bilateral mosaic attenuation. Ill-defined centrilobular multifocal groundgla ss opacities. Additionally millimeters fissural nodule of the right midlung image 112 previous and me asured 7 mm. This is also suggestive of a probable benign lymph node. Central airways are clear. Ther e are 2 solid nodules within the right upper lobe measuring up to 3 mm on image 219, likely benign. No acute process of the imaged upper abdomen. Degenerative changes of the shoulders and spine. IMPRESSION: 1. No pulmonary emboli identified. 2. Mild air trapping is noted with ill-defined bilateral centrilobular groundglass opacities. Differe ntial considerations would include hypersensitivity pneumonitis versus an infectious pneumonitis. 3. Bilateral fissural nodules measuring up to 8 mm are suggestive of benign lymph nodes. 4. Borderline enlarged mediastinal and hilar lymph nodes, likely reactive. ACT 112: Negative or not required by law. The above report was generated using voice recognition software. It may contain grammatical, syntax o r spelling errors. Electronically signed by: Ashu Pfeiffer M.D. 07/03/2022 10:39 AM
[2022-07-03] MEDS ORDERED: dexAMETHasone**PF** 10 MG/ML VIAL IV ONE (11:16)
[2022-07-03] MEDS ORDERED: CEFEPIME 2,000 MG/20 ML VIAL IV STA (11:16)
--- NOTE | 2022-07-03 12:21 | History & Physical Report ---
Date of Service July 03, 2022 Assessment & Plan (1) Cough: (2) Hypoxia: (3) Pneumonitis: (4) Hyperlipidemia: (5) Moderate aortic regurgitation: (6) Mild aortic stenosis: (7) Bicuspid aortic valve: (8) History of hypertension: (9) GERD (gastroesophageal reflux disease): (10) DM2 (diabetes mellitus, type 2): Plan Mr. 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 PMH: AR, , DM2 on Lantus, thalamic stroke in 2019, covid in 2019. D-dimer was 440, chest CTA was negative for PE however does suggest inflammatory process with possible pneumonitis and reactive lymph node involvement. Bilateral fissure nodules of 8 mm were noted. In ED, IV Decadron, a duoneb tx, and a dose of Cefepime. His BNP was 9. ECHO 04/07 EF 55%. Has a cockatoo at home and notes mold in his home. Pulm consult placed. Pneumonitis: Non-productive cough: Hypoxia: Symptoms occurring x1 month; CHRISTINA with hypoxia noted 86 to 87%, with increased HR 110-1150 with noted PVC's. some pleuritic chest pain intermittently D-dimer 440, chest CTA negative for PE; however, suggestive of inflammatory process vs pneumonitis. Reactive lymph node involvement with bilateral fissure and nodules 8 mm in size. In ED received dexamethasone 10 mg, DuoNeb x1, cefepime Sputum culture pending, Pro-Wade Xopenex, hold on further steroids until pulm eval procal ordered Pulmonary consult placed and on-call provider notified Lyme work-up pending HTN: Moderate aortic regurgitation: Mild Aortic Stenosis: Last echo 03/18 2; EF 55 to 59%; follows with Kody Alexandra PA-C outpatient BNP 9 Takes amlodipine and metoprolol ER; continue HLD: Stable; takes rosuvastatin; continue Check lipid panel DM2: Takes Lantus subcu 8 units every morning Takes Trulicity subcu once weekly and is due today Last A1c 7.1 in 06/08. Glycemic pharmacy consulted GERD: Takes omeprazole; continue H/O CVA: Thalamic stroke in 05/2019 s/p tPA Takes aspirin 81 mg daily; continue Disposition: PCP: Jamaal King PA-C Code: Full Code VTE Prophylaxis: Lovenox SQ I personally was able to review all current laboratory work and diagnostic images obtained in the ED. Additionally, I was able to review the patients past medication reconciliation and history with direct visualization in the patients chart. This patient was seen in collaboration with Dr. Kim. History of Present Illness Chief Complaint: cough and shortness of breath Primary Care Provider: Jamaal Kign PA-C Mr. 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 At his PCP office today, the patient was noted to be hypoxic in the low 80's; at rest he would improve to the low 90's. Mr. 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 He reports that he would feel that he would sit in his truck until his cough would resolve until he would start driving, which was about 10 minutes usually. He also reports having a 'racing heart beat' during these events. He further stated that the CHRISTINA would be occurring at work as well when he would go to a call in the hospital. In the ED, he was noted to have an O2 sat of 94% at rest, but would decrease to 89% with ambulation to the bathroom. Additional past medical history includes: AR, , DM2 on Lantus, thalamic stroke in 2018, HTN, HLD, GERD, BPH, degenerative disc disease, none melanoma skin cancer status post Mohs procedure, eczema and he had COVID in 07/2020. In the ED, He denies fever or chills. Patient does report pleuritic right- sided chest pain, dizziness, fatigue. Patient reports his D-dimer was 440, chest CTA was negative for PE however does suggest inflammatory process with possible pneumonitis and reactive lymph node involvement. Bilateral fissure nodules of 8 mm were noted. The patient received IV Decadron, a duoneb tx, and a dose of Cefepime. His BNP was 9 He is euvolemic on exam. Cuming noting the patient's numerous allergies to different antibiotic types including anaphylaxis. His most recent ECHO 04/07 EF 55% and he sees Kody Alexandra PA-C outpatient. He said that he has had PFTs before but does not follow with anybody from pulmonary outpatient and I could not find anything documented in epic. Patient denies tobacco use, recreational drug use, and is a social drinker with his last drink being over a week ago. Patient reports living in an apartment and notes some mold in the home. Patient denies any recent travel but does have a Cockatoo bird at home for the past four years. Patient will be admitted to the hospitalist service for further evaluation and management. Please see A/P for further details. I personally was able to review all current laboratory work and diagnostic images obtained in the ED. Additionally, I was able to review the patients past medication reconciliation and history with direct visualization in the patients chart. This patient was seen in collaboration with Dr. Kim. Allergies Allergy/AdvReac Type Severity Reaction Status Date / Time ciprofloxacin Allergy Severe Anaphylaxis Verified 12/23/21 13:10 betamethasone Allergy Intermediate Rash/throat Verified 12/23/21 13:10 irritation cephalexin Allergy Mild RASH, Verified 12/23/21 13:10 "makes voice hoarse" sulfite Allergy Mild EARS FELT Verified 12/23/21 13:10 HOT AND REDNESS, FACIAL BLOTCHINESS Sulfa (Sulfonamide Allergy Unknown Unknown Verified 12/23/21 13:10 Antibiotics) latex AdvReac Mild "GAVE Verified 12/23/21 13:10 STRANGE SENSATION TO SKIN" Home Medications Medication Instructions Recorded Confirmed Type metoprolol succinate 25 mg 25 mg PO QAM 06/09/19 07/03/22 History tablet,extended release 24 hr multivitamin 1 tab PO QAM 06/09/19 07/03/22 History rosuvastatin 40 mg sprinkle capsule 40 mg PO QAM 05/26/20 07/03/22 History amlodipine 5 mg tablet 5 mg PO QAM 12/19/21 07/03/22 History aspirin 81 mg tablet,delayed 81 mg PO QAM 12/19/21 07/03/22 History release dulaglutide 1.5 mg/0.5 mL 1.5 mg subcut WK 12/19/21 07/03/22 History subcutaneous pen injector (Trulicity) omeprazole 40 mg capsule,delayed 40 mg PO QAM 12/19/21 07/03/22 History release Lantus Solostar U-100 Insulin 8 units SC QAM 07/03/22 07/03/22 History Past Med/Surg History Medical History Abnormal CT scan, chest Acute dyspnea Bicuspid aortic valve Cardiac murmur follows with Dr. Gt Hardin DDD (degenerative disc disease), cervical Diabetes mellitus, type 2 Diaphragmatic hernia (11/03/11) DM2 (diabetes mellitus, type 2) GERD (gastroesophageal reflux disease) History of basal cell carcinoma on face--had mohs procedure History of COVID-19 diagnosed 07/2020--no issues now History of hypertension History of kidney stones Hyperlipidemia Hypoxemia Mild aortic stenosis Moderate aortic regurgitation Pneumonitis Psoriasis Stroke (~2018) no deficits except for intermittent tingling sensations--no neurologist currently Surgical History H/O esophagogastroduodenoscopy "2009- Schatzki ring dilated, esophagitis, HH" H/O rotator cuff surgery right History of cardiac cath (~10/2016) @ [facility]--no stents History of colonoscopy History of Mohs micrographic surgery for skin cancer History of tooth extraction Hx of tonsillectomy Family History Father Heart disease Uncle Stroke Other No family history of adverse response to anesthesia Social History Smoking Status: Never smoker Second Hand Exposure: No; Hx Alcohol Use: No Hx Substance Use: No Preferred Language: Turkmen Communication Ability: Effective House Builder Required: No Beliefs That Will Affect Care: None Current Living Situation: Spouse Other Information That Helps Us Care for You: No Feels Safe at Home: Yes Safety Concerns: Feels Safe At This Time Assistive Devices: None Review of Systems Review of Systems: Neuro: (-) Falls, trauma, slurred speech HEENT: (-) PURVIS, (+) dizziness, (-) dysphagia, visual or auditory changes CV: (-) CP, (+) palpitations, (-) swelling Resp: (+) SOB GI: (-) appetite changes, (+) nausea (+) vomiting. (-)D , bowel changes : (-) urinary changes Skin: (+) rashes Psych: (-) anxiety, depression Physical Exam Physical Exam: Neuro: AAOx4, PERRLA, no aphagia, memory changes, CNII-XII grossly intact HEENT: head normocephalic, moist mucus membranes CV: S1/S2, (+ grade III/ LSB murmur) (-) gallop or rub (-) edema, cap refill < 3 seconds Resp: Lungs decreased in bases On 2LNC GI: Abdomen S/NT/ND, Ax4 bowel sounds, (-) CVA tenderness Musculoskeletal: 5/5 B/L UE strength, 5/5 B/L LE strength. No gait disturbance Skin: (-) rashes , (-) erythema. Psych: euthymic mood Results & Data Results & Data ([facility]) Vital Signs (Past 12 Hours) Vital Signs Temp Pulse Pulse Resp BP BP Pulse Ox 07/03/22 10:42 88 22 141/73 H 95 07/03/22 09:46 85 L 07/03/22 08:59 95 07/03/22 08:41 36.0 C L 98 H 20 153/89 H 93 O2 Del Method 07/03/22 10:42 Room Air 07/03/22 09:46 Room Air 07/03/22 08:59 Room Air 07/03/22 08:41 Room Air Laboratory Results Short CBC 07/03/22 Range/Units 08:55 WBC 9.47 (4.8-10.8) K/ul Hgb 16.9 (14.0-18.0) g/dl Hct 49.1 (40.1-51.0) % Plt Count 230 (130-400) K/uL BMP 07/03/22 08:55 Sodium 136 Potassium 3.7 Chloride 103 Carbon Dioxide 24 BUN 18 Creatinine 1.00 Glucose 146 H Calcium 9.3 Liver Function 07/03/22 Range/Units 08:55 Total Bilirubin 0.5 (0.2-1.0) mg/dl AST 25 (13-39) U/L ALT 39 (7-52) U/L Alkaline Phosphatase 91 (34-104) U/L Albumin 4.0 (3.4-5.0) gm/dl Diagnostic Findings Chest CTA 07/03/22 08:58 CT angio chest PE protocol CT DOSE: 382.78 mGy.cm HISTORY: 62 years-old Male with Dyspnea. Acute shortness of breath TECHNIQUE: Multiple CTA images of the chest were obtained after the intravenous administration of 118 ml Optiray. Coronal and sagittal MIPS were obtained from the axial data set and were submitted for review. All measurements were obtained according to NASCET criteria. A dose lowering technique was utilized adhering to the principles of ALARA. COMPARISON: CT chest 02/22/2016. FINDINGS: CTA: Heart is normal in size. There is no pericardial effusion. Mild coronary artery calcifications. No thoracic aortic aneurysm or dissection. There is patency of the imaged great vessels. Unremarkable pulmonary artery. The segmental and subsegmental branches are not well evaluated secondary to contrast bolus timing and respiratory motion artifact. No filling defects identified to suggest thromboembolic disease. CT CHEST: No thyroid nodule. Subcentimeter borderline enlarged mediastinal and hilar lymph nodes are favored to be reactive. There is no pneumothorax, pleural effusion, airspace consolidation or overt pulmonary edema. Mild subpleural bleb formation versus paraseptal emphysema of the lung apices. 8 mm fissural nodule within the right midlung on image 157 series 4 previously measured 7 mm. This is suggestive of a benign lymph node. Mild bilateral mosaic attenuation. Ill-defined centrilobular multifocal groundglass opacities. Additionally millimeters fissural nodule of the right midlung image 112 previous and measured 7 mm. This is also suggestive of a probable benign lymph node. Central airways are clear. There are 2 solid nodules within the right upper lobe measuring up to 3 mm on image 219, likely benign. No acute process of the imaged upper abdomen. Degenerative changes of the shoulders and spine. IMPRESSION: 1. No pulmonary emboli identified. 2. Mild air trapping is noted with ill-defined bilateral centrilobular groundglass opacities. Differential considerations would include hypersensitivity pneumonitis versus an infectious pneumonitis. 3. Bilateral fissural nodules measuring up to 8 mm are suggestive of benign lymph nodes. 4. Borderline enlarged mediastinal and hilar lymph nodes, likely reactive. ACT 112: Negative or not required by law. The above report was generated using voice recognition software. It may contain grammatical, syntax or spelling errors. Electronically signed by: Ashu Pfeiffer M.D. 07/03/2022 10:39 AM Chest X-Ray 07/03/22 08:58 XR chest 1V portable HISTORY: Cough. Dyspnea COMPARISON: Chest 06/09/2019. FINDINGS: No pneumothorax. No pleural effusions. The heart is normal in size. Subtle perihilar hazy densities are noted with mild interstitial thickening. Otherwise, no focal lung consolidations. IMPRESSION: Subtle perihilar hazy densities with mild interstitial thickening. This is nonspecific could be due to a low-grade pneumonitis or developing pulmonary edema. ACT 112: Negative or not required by law. Electronically signed by: Richard Parker M.D. 07/03/2022 9:55 AM ECG Additional Comments: Vent. Rate : 089 BPM Atrial Rate : 089 BPM P-R Int : 158 ms QRS Dur : 100 ms QT Int : 360 ms P-R-T Axes : 035 -05 -03 degrees QTc Int : 438 ms Sinus rhythm with occasional Premature ventricular complexes Otherwise normal ECG When compared with ECG of 10-JUN-2019 07:52, Premature ventricular complexes are now Present Code Status & VTE Plan Code Status Full code in the event of cardiac or respiratory arrest VTE Prophylaxis Plan VTE Prophylaxis will be ordered: Yes Supervising Physician Co-Signing Physician Notes 62-year-old gentleman with PMH of thalamic stroke, bicuspid aortic valve, moderate AR, moderate AAS, HTN, diaphragmatic hernia, allergic rhinitis, esophageal stricture, T2DM, HLD, cervical DDD, BPH presented to our ED 07/03 with complaint of cough, and shortness of breath with exertion; both of them for about 3 weeks prior to arrival. Patient reported that his cough started acutely around 3 weeks ago, comes in bouts, followed by dry heaves/gagging/spitting up. Not associated with any triggers, comes randomly. Has been about the same. 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 Patient does have a bird at home which has been there for almost 3 years per patient. Admitting imaging suggestive of hypersensitivity versus infectious pneumonitis. Patient received a dose of cefepime and dexamethasone in the ED. Pulmonology consulted, azithromycin and dexamethasone. Pulmicort. Upon examination: GENERAL: Alert and oriented x3. NAD, on 4L NC O2. HEENT: No pallor, no icterus. Pupils equal, round and reactive to light. Oral mucosa moist. NECK: No JVD, no neck masses. HEART: S1 and S2 heard. Regular rate and rhythm. No murmur, no gallop. RESPIRATORY SYSTEM: Normal AP diameter. No accessory muscle use. No wheezing, no crackles. ABDOMEN: Soft, bowel sounds present, nontender, no distention. CENTRAL NERVOUS SYSTEM: No facial droop. Speech is clear. Obeys simple commands. Moves extremities. EXTREMITIES: No edema, no erythema seen. I have seen and examined the patient and have discussed the case with the provider above. I agree with the assessment and plan as stated.
[2022-07-03] MEDS ORDERED: DC ALL PREVIOUSLY ORDERED DIABETES MEDS ONE (13:38)
[2022-07-03] MEDS ORDERED: ACETAMINOPHEN 325 MG TAB PO PRN (13:38)
[2022-07-03] MEDS ORDERED: GLUCOSE 40% GEL 15 GM TUBE PO PRN (13:38)
[2022-07-03] MEDS ORDERED: CARBOHYDRATES FOR HYPOGLYCEMIA PO PRN (13:38)
[2022-07-03] MEDS ORDERED: ENOXAPARIN INJ 40 MG/0.4 ML SYR SQ SCH (13:38)
[2022-07-03] MEDS ORDERED: GLUCAGON FOR INJ 1 MG VIAL SQ PRN (13:38)
[2022-07-03] MEDS ORDERED: GLUCOSE 10 TAB/TUBE PO PRN (13:38)
[2022-07-03] MEDS ORDERED: DEXTROSE 50% 50 ML SYRINGE IV PRN (13:38)
[2022-07-03] MEDS ORDERED: PHARMACY GLYCEMIC MGMT CONSULT PRN (13:38)
--- NOTE | 2022-07-03 14:24 | Pharmacy Report ---
Pharmacy Glycemic Short Note 2 - Date of Service July 03, 2022 - Glycemic Short BSG Results (Last 24 hours): 07/03/22 08:55 Glucose 146 H OUTPATIENT ANTIDIABETIC REGIMEN: * Lantus U-100: 8 Units subcutaneously every morning * Trulicity: 1.5 mg subcutaneously once weekly ASSESSMENT: * AC 62 year old male, presenting with dyspnea on exertion * Most recent HbA1c: 7.6% on 06/09/19- a new A1c will be drawn tomorrow morning, 07/04/22. * Fasting blood glucose upon admission this morning was 146 mg/dL, suggesting patient is normally well controlled on his outpatient regimen. * Because the patient is employed at [employer] and was admitted following his shift, he was unable to take any of his morning medications including his lantus. * The patient was given a one-time dose of Decadron 10mg IV upon ED admission; I anticipate that this will increase observed blood sugars over the next day or so. PLAN FOR INPATIENT GLYCEMIC CONTROL: * Basal insulin * Will give 15u of lantus now today to account for missed AM dose as well as steroids, and then the patient will be transitioned back to daily dosing at 0900 for future administration to align with his outpatient regimen. * Bolus insulin * NovoLog per scale ACHS * Goal Range: Low 110 mg/dL - High 140 mg/dL * Correction Factor: 30 mg/dL/unit * Nutritional / Prandial insulin per carb ratio of 1 unit per 10 grams CHO consumed
[2022-07-03 14:42] LABS: Lyme Ab IgG w/WB Rflx Negative (Negative)
[2022-07-03 14:50] LABS: Lyme Ab IgM w/WB Rflx Positive (Negative)
[2022-07-03] MEDS ORDERED: LANTUS PER UNIT CHARGE SQ ONE (15:15)
[2022-07-03] MEDS: INSULIN ASPART PER UNIT SC SCH ×4 (15:57→23:59)
[2022-07-03] MEDS ORDERED: AZITHROMYCIN 250 MG in DEXTROSE 5% 250 ML IV ONE (16:08)
[2022-07-03] MEDS ORDERED: LABETALOL HCL IV 5 MG/ML 20ML IV PRN (16:11)
[2022-07-03] MEDS ORDERED: AZITHROMYCIN 500 MG in DEXTROSE 5% 250 ML IV STA (16:14)
--- NOTE | 2022-07-03 16:49 | Pulmonary Consultation ---
Date of Consultation July 03, 2022 Assessment & Plan (1) Abnormal CT scan, chest: (2) Acute dyspnea: (3) Hypoxemia: Plan 62-year-old male with a history of stroke and bicuspid aortic valve presenting to the hospital due to shortness of breath. He was found to have diffuse mosaic ism on CT chest with small subcentimeter pulmonary nodules. He was also found to be hypoxemic. Differential is broad including hypersensitivity pneumonitis and infectious respiratory bronchiolitis. Eosinophil count is not significantly raised. -Methylprednisolone 40 mg 3 times daily -Nebulized budesonide and formoterol twice daily -Azithromycin daily -Procal -Respiratory bio fire panel to evaluate for viral pneumonitis and other atypical organisms such as chlamydia pneumoniae and mycoplasma -Outpatient HRCT in 3 months along with PFTs Will continue to follow with you. History of Present Illness Reason for Consultation: Acute hypoxemic respiratory failure and abnormal CT chest Attending Physician: Dayne Kim MD History of Present Illness 63-year-old male with a past medical history of stroke and bicuspid aortic valve presenting to the hospital due to increasing shortness of breath and mildly productive cough for the past 4 to 6 weeks. He is accompanied by his at bedside. He relates that he has tried several [id number] remedies including Mucinex and Benadryl with minimal relief of symptoms. He went to his outpatient PCP today who recommended ER evaluation. He was found to be hypoxic and is currently requiring 4 L of oxygen via nasal cannula. He received a dose of dexamethasone and cefepime in the ER with significant improvement of symptoms. He notes that for the past 2 years he has had a slight increase in shortness of breath. He relates that he had COVID-19 about 2 years ago and has never fully recovered. He still has problems with taste and smell. He has a cockatiel at home which she has known for about 4 years. He denies any overt sick contacts. He denies any current tobacco abuse. He was a smoker in the remote past. He denies any burning of wood. No recent hunting exposures or outdoor activities in the [place]. No recent travel history. Denies any prior history of asthma. He does note some mold exposure in his home. Allergies Allergy/AdvReac Type Severity Reaction Status Date / Time ciprofloxacin Allergy Severe Anaphylaxis Verified 12/23/21 13:10 betamethasone Allergy Intermediate Rash/throat Verified 12/23/21 13:10 irritation cephalexin Allergy Mild RASH, Verified 12/23/21 13:10 "makes voice hoarse" sulfite Allergy Mild EARS FELT Verified 12/23/21 13:10 HOT AND REDNESS, FACIAL BLOTCHINESS Sulfa (Sulfonamide Allergy Unknown Unknown Verified 12/23/21 13:10 Antibiotics) latex AdvReac Mild "GAVE Verified 12/23/21 13:10 STRANGE SENSATION TO SKIN" Home Medications Medication Instructions Recorded Confirmed Type metoprolol succinate 25 mg 25 mg PO QAM 06/09/19 07/03/22 History tablet,extended release 24 hr multivitamin 1 tab PO QAM 06/09/19 07/03/22 History rosuvastatin 40 mg sprinkle capsule 40 mg PO QAM 05/26/20 07/03/22 History amlodipine 5 mg tablet 5 mg PO QAM 12/19/21 07/03/22 History aspirin 81 mg tablet,delayed 81 mg PO QAM 12/19/21 07/03/22 History release dulaglutide 1.5 mg/0.5 mL 1.5 mg subcut WK 12/19/21 07/03/22 History subcutaneous pen injector (Trulicity) omeprazole 40 mg capsule,delayed 40 mg PO QAM 12/19/21 07/03/22 History release Lantus Solostar U-100 Insulin 8 units SC QAM 07/03/22 07/03/22 History Patient History Medical History (Updated 07/03/22 @ 16:45 by Toño Arreaga MD) Abnormal CT scan, chest Acute dyspnea Bicuspid aortic valve Cardiac murmur follows with Dr. Gt Hardin DDD (degenerative disc disease), cervical Diabetes mellitus, type 2 Diaphragmatic hernia (11/03/11) DM2 (diabetes mellitus, type 2) GERD (gastroesophageal reflux disease) History of basal cell carcinoma on face--had mohs procedure History of COVID-19 diagnosed 07/2020--no issues now History of hypertension History of kidney stones Hyperlipidemia Hypoxemia Mild aortic stenosis Moderate aortic regurgitation Pneumonitis Psoriasis Stroke (~2018) no deficits except for intermittent tingling sensations--no neurologist currently Surgical History H/O esophagogastroduodenoscopy "2009- Schatzki ring dilated, esophagitis, HH" H/O rotator cuff surgery right History of cardiac cath (~10/2016) @ [facility]--no stents History of colonoscopy History of Mohs micrographic surgery for skin cancer History of tooth extraction Hx of tonsillectomy Family History Father Heart disease Uncle Stroke Other No family history of adverse response to anesthesia Social History Smoking Status: Never smoker Second Hand Exposure: No; Hx Alcohol Use: No Hx Substance Use: No Preferred Language: Swedish Communication Ability: 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 Patient is in no apparent distress. Patient is well-developed. Eyes: Pupils are equal round and reactive to light. Conjunctivae are normal. Anicteric sclera. Ears nose, mouth and throat: Deferred. Neck: Trachea is midline. Visual inspection is normal. Respiratory: Clear to auscultation bilaterally. No use of accessory muscles. No significant clubbing noted. Cardiovascular: Regular rate and rhythm. No murmurs. No edema. Gastrointestinal: Normal bowel sounds, soft, nontender and nondistended. No hepatosplenomegaly noted. Musculoskeletal: No cyanosis. Patient is able to move all extremities. Strength is 5 out of 5 in the upper and lower extremities. Skin: No rashes, warm dry and intact. Neurologic: No obvious focal neurological deficits seen. Psychiatric: Alert and oriented x3 with a euthymic affect. Results & Data Results & Data ([facility]) Vital Signs (Past 12 Hours) Vital Signs Temp Pulse Pulse Resp BP BP Pulse Ox 07/03/22 16:22 36.6 C 96 H 19 156/81 H 94 07/03/22 13:39 07/03/22 13:39 36.5 C 80 20 168/80 H 96 07/03/22 13:00 76 18 145/85 H 94 07/03/22 12:00 80 20 147/83 H 94 07/03/22 10:42 88 22 141/73 H 95 07/03/22 09:46 85 L 07/03/22 08:59 95 07/03/22 08:41 36.0 C L 98 H 20 153/89 H 93 O2 Del Method O2 Flow Rate 07/03/22 16:22 Room Air 07/03/22 13:39 Nasal Cannula 2 07/03/22 13:39 Nasal Cannula 2 07/03/22 13:00 Nasal Cannula 2 07/03/22 12:00 Nasal Cannula 2 07/03/22 10:42 Room Air 07/03/22 09:46 Room Air 07/03/22 08:59 Room Air 07/03/22 08:41 Room Air PG Care Time/CCT Total # of Minutes Spent Total Time Spent with Patient: Total time spent is greater than 50% in coordination of care (as documented) at patient's floor/unit and/or counseling patient: Coding Level of Care Code 26593 Initial Inpt Care Lvl [address] scan, chest R93.89 Acute dyspnea R06.00 Hypoxemia R09.02
[2022-07-03 17:17] LABS: Appearance Urine Clear (Clear); Bacteria Urine Automated Negative (Negative); Bilirubin Urine Negative (Negative); Blood Urine Negative (Negative); Cast Urine Automated 0 /lpf (0-5); Color Urine Yellow; Glucose Urine UA 1+ (Negative); Ketones Urine Trace (Negative); Leukocyte Esterase Urine Negative (Negative); Nitrite Urine Negative (Negative); Protein Urine 1+ (Negative); RBC Urine Automated 0-4 /hpf (0-4); Specific Gravity Urine > 1.045 (1.000-1.030); Urobilinogen Urine Negative (Negative)
[2022-07-03 18:24] LABS: Adenovirus PCR Not Detected (NotDetected); Bordetella parapertussis PCR Not Detected (NotDetected); Bordetella pertussis PCR Not Detected (NotDetected); Chlamydia pneumoniae PCR Not Detected (NotDetected); Coronavirus 229E PCR Not Detected (NotDetected); Coronavirus CoV-2 (COVID19)PCR Not Detected (NotDetected); Coronavirus HKU1 PCR Not Detected (NotDetected); Coronavirus NL63 PCR Not Detected (NotDetected); Coronavirus OC43PCR Not Detected (NotDetected); Human Metapneumovirus PCR Not Detected (NotDetected); Influenza A PCR Not Detected (NotDetected); Influenza B PCR Not Detected (NotDetected); Mycoplasma pneumoniae PCR Not Detected (NotDetected); Parainfluenza Virus 1 PCR Not Detected (NotDetected); Parainfluenza Virus 2 PCR Not Detected (NotDetected); Parainfluenza Virus 3 PCR Not Detected (NotDetected); Parainfluenza Virus 4 PCR Not Detected (NotDetected); Respiratory Syncytial VirusPCR Not Detected (NotDetected); Rhinovirus/Enterovirus PCR Not Detected (NotDetected)
[2022-07-03] MEDS: BUDESONIDE 0.5 MG/2 ML VIAL (PULMICORT) NEB SCH (19:28)
[2022-07-03] MEDS: FORMOTEROL 20 MCG/2 ML VIAL NEB SCH (19:28)
[2022-07-03] MEDS: methylPREDNISolone 40 MG in SYRINGE 0 ML IV SCH (21:44)
[2022-07-04] MEDS: INSULIN ASPART PER UNIT SC SCH ×5 (04:12→20:53)
[2022-07-04 06:04] LABS: Hematocrit (blood only) 47.5 % (40.1-51.0); Hemoglobin 16.1 g/dl (14.0-18.0); Mean Corpuscular Hemoglobin 28.8 pg (25.0-34.0); Mean Corpuscular Hgb Conc 33.9 g/dL (32.0-36.0); Mean Corpuscular Volume 84.8 fL (80.0-100.0); Mean Platelet Volume 8.9 fL (9.4-12.4); Platelet Count 244 K/uL (130-400); RDW Coefficient of Variation 13.4 % (11.5-14.5); RDW Standard Deviation 41.5 fL (36.4-46.3); White Blood Count 7.96 K/ul (4.8-10.8)
[2022-07-04 06:27] LABS: BUN Creatinine Ratio 21.8 (10-20); C Reactive Protein 1.62 mg/dl (0-0.5); Calcium 9.7 mg/dl (8.5-10.1); Creatinine Clr Calc Pharmacy 74.7 ml/min; Est GFR (Non-African American) 79.3 ml/min; Potassium 4.4 mmol/L (3.5-5.1)
[2022-07-04] MEDS: FORMOTEROL 20 MCG/2 ML VIAL NEB SCH ×2 (07:01→19:37)
[2022-07-04] MEDS: BUDESONIDE 0.5 MG/2 ML VIAL (PULMICORT) NEB SCH ×2 (07:01→19:37)
[2022-07-04 07:05] LABS: Estimated Average Glucose 157 mg/dl; Hemoglobin A1C 7.1 % (4.5-5.6)
[2022-07-04] MEDS ORDERED: LANTUS PER UNIT CHARGE SQ ONE ×2 (08:00)
[2022-07-04] MEDS: methylPREDNISolone 40 MG in SYRINGE 0 ML IV SCH (08:14)
[2022-07-04] MEDS: ENOXAPARIN INJ 40 MG/0.4 ML SYR SQ SCH (08:15)
[2022-07-04] MEDS: ROSUVASTATIN CALCIUM 20 MG TAB PO SCH (08:15)
[2022-07-04] MEDS: METOPROLOL SUCC 25MG EXT REL TAB PO SCH (08:15)
[2022-07-04] MEDS: amLODIPine BESYLATE 5 MG TAB PO SCH (08:15)
[2022-07-04] MEDS: ASPIRIN 81 MG ECTAB PO SCH (08:16)
[2022-07-04] MEDS: MULTIVITAMIN TAB PO SCH (08:16)
[2022-07-04] MEDS: PANTOprazole 40 MG TAB PO SCH (08:16)
[2022-07-04] MEDS: AZITHROMYCIN 250 MG in DEXTROSE 5% 250 ML IV SCH (08:21)
--- NOTE | 2022-07-04 08:34 | Pharmacy Report ---
Pharmacy Glycemic Short Note 2 - Date of Service July 04, 2022 - Glycemic Short BSG Results (Last 24 hours): 07/03/22 07/03/22 07/03/22 08:55 20:15 23:55 Glucose 146 H POC Glucose 250 H 170 H 07/04/22 07/04/22 07/04/22 04:09 05:44 07:40 Glucose 219 H POC Glucose 174 H 206 H OUTPATIENT ANTIDIABETIC REGIMEN: * Lantus U-100: 8 Units subcutaneously every morning * Trulicity: 1.5 mg subcutaneously once weekly HbA1c: 7.1% (07/04/22) ASSESSMENT: 07/04/22 * BSGs elevated yesterday and this morning, ranging 170-250 mg/dL * Pulmonary consulted and initiated Solu-medrol 40 mg IV TID, this has subsequently been changed to prednisone 40 mg PO daily starting tomorrow morning * Will increase basal to ~0.4 unit/kg dosing this morning and tighten Novolog in light of ongoing steroids * Consideration for NPH tomorrow with prednisone 07/03/22: * AC 62 year old male, presenting with dyspnea on exertion * Most recent HbA1c: 7.6% on 06/09/19- a new A1c will be drawn tomorrow morning, 07/04/22. * Fasting blood glucose upon admission this morning was 146 mg/dL, suggesting patient is normally well controlled on his outpatient regimen. * Because the patient is employed at [employer] and was admitted following his shift, he was unable to take any of his morning medications including his lantus. * The patient was given a one-time dose of Decadron 10mg IV upon ED admission; I anticipate that this will increase observed blood sugars over the next day or so. PLAN FOR INPATIENT GLYCEMIC CONTROL: * Basal insulin * 30 units SC x 1 this morning * Reassess tomorrow AM * Bolus insulin * NovoLog per scale ACHS * Goal Range: Low 110 mg/dL - High 140 mg/dL * Correction Factor: 20 mg/dL/unit * Nutritional / Prandial insulin per carb ratio of 1 unit per 7 grams CHO consumed
--- NOTE | 2022-07-04 09:22 | XRay Report ---
XR chest 1V portable HISTORY: 62 years-old Male post-operative coughing and wheezing acute cough with wheezing COMPARISON: Chest radiograph and CTA chest studies 07/03/2022 TECHNIQUE: AP view of the chest FINDINGS: Cardiac silhouette is enlarged. Ill-defined hazy bilateral pulmonary opacities are redemonstrated. No pneumothorax, pleural effusion or lobar airspace consolidation. The bones appear grossly intact. IMPRESSION: Hazy ill-defined bilateral pulmonary opacities are better characterized on yesterday's CT A of the chest, suspicious for an infectious or inflammatory pneumonitis. ACT 112: Negative or not required by law. The above report was generated using voice recognition software. It may contain grammatical, syntax o r spelling errors. Electronically signed by: Ashu Pfeiffer M.D. 07/04/2022 9:20 AM
--- NOTE | 2022-07-04 10:22 | Pulmonology Progress Note ---
Date of Service July 04, 2022 Assessment & Plan (1) Abnormal CT scan, chest: (2) Acute dyspnea: (3) Hypoxemia: Plan 62-year-old male with a history of stroke and bicuspid aortic valve presenting to the hospital due to shortness of breath. He was found to have diffuse mosaicism on CT chest with small subcentimeter pulmonary nodules. He was also found to be hypoxemic. Differential is broad including hypersensitivity pneumonitis and infectious respiratory bronchiolitis. Eosinophil count is not significantly raised. Patient has a cockatiel at home. -Hypoxemia improving significantly. -Transition methylprednisolone to p.o. prednisone 40 mg daily. -Nebulized budesonide and formoterol twice daily -Azithromycin daily -Procal negative -Respiratory bio fire panel negative -Chest x-ray today with faint bilateral groundglass opacities. -Outpatient HRCT in 3 months along with PFTs Will continue to follow with you. Admission and Anticipated Discharge Date Admission Date: July 03, 2022 Subjective Patient is feeling much less short of breath than yesterday. I had him walk around his room and hallway while off of oxygen. Pulse oximetry demonstrated desaturation to 88%. He did not feel significantly symptomatic at that time. Denies chest pain, fevers, chills or night sweats. Review of Systems Review of Systems: All systems reviewed & are unremarkable except as noted in HPI & below Physical Exam Physical Exam: Constitutional: Patient appears to be of their stated age. Patient is in no apparent distress. Patient is well-developed. Eyes: Pupils are equal round and reactive to light. Conjunctivae are normal. Anicteric sclera. Ears nose, mouth and throat: Deferred. Neck: Trachea is midline. Visual inspection is normal. Respiratory: Clear to auscultation bilaterally. No use of accessory muscles. No significant clubbing noted. Cardiovascular: Regular rate and rhythm. No murmurs. No edema. Gastrointestinal: Normal bowel sounds, soft, nontender and nondistended. No hepatosplenomegaly noted. Musculoskeletal: No cyanosis. Patient is able to move all extremities. Strength is 5 out of 5 in the upper and lower extremities. Skin: No rashes, warm dry and intact. Neurologic: No obvious focal neurological deficits seen. Psychiatric: Alert and oriented x3 with a euthymic affect. Results & Data Results & Data ([facility]) Vital Signs (Past 12 Hours) Vital Signs Temp Pulse Pulse Resp BP Pulse Ox Pulse Ox 07/04/22 08:00 72 07/04/22 08:00 96 07/04/22 07:18 36.6 C 77 16 155/75 H 94 07/04/22 07:03 79 16 96 07/04/22 04:00 36.3 C L 72 18 123/70 94 07/04/22 01:55 85 07/03/22 22:41 36.6 C 77 16 119/54 L 94 O2 Del Method O2 Del Method O2 Flow Rate O2 Flow Rate 07/04/22 08:00 07/04/22 08:00 Nasal Cannula 3 07/04/22 07:18 Nasal Cannula 2 07/04/22 07:03 Nasal Cannula 3.5 07/04/22 04:00 Nasal Cannula 4 07/04/22 01:55 07/03/22 22:41 Nasal Cannula 2 PG Care Time/CCT Total # of Minutes Spent Total Time Spent with Patient: Total time spent is greater than 50% in coordination of care (as documented) at patient's floor/unit and/or counseling patient: Coding Level of Care Code 48387 Subseq Hosp Care Lvl [address] scan, chest R93.89 Acute dyspnea R06.00 Hypoxemia R09.02
--- NOTE | 2022-07-04 13:31 | Hospitalist Progress Note ---
Date of Service July 04, 2022 Assessment & Plan (1) Cough: (2) Hypoxia: (3) Pneumonitis: (4) Hyperlipidemia: (5) Moderate aortic regurgitation: (6) Mild aortic stenosis: (7) Bicuspid aortic valve: (8) History of hypertension: (9) GERD (gastroesophageal reflux disease): (10) DM2 (diabetes mellitus, type 2): Plan Mr. 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 Pneumonitis: Non-productive cough: Hypoxia: Symptoms occurring x1 month; CHRISTINA with hypoxia noted 86 to 87%, with increased HR 110-1150 with noted PVC's. some pleuritic chest pain intermittently D-dimer 440, chest CTA negative for PE; however, suggestive of inflammatory process vs pneumonitis. Reactive lymph node involvement with bilateral fissure and nodules 8 mm in size. Improved after IV steroids and now transitioned to prednisone. Cont formoterol, budesonide and azithromycin per pulm Further workup with PFTs in clinic in a couple of months. Today, still requiring oxygen and especially short of breath on recovery from exercise Cont to wean as tolerated-2 step prior to discharge. HTN: Moderate aortic regurgitation: Mild Aortic Stenosis: Last echo 03/18 2; EF 55 to 59%; follows with Kody Alexandra PA-C outpatient BNP 9 Takes amlodipine and metoprolol ER; continue HLD: Stable; takes rosuvastatin; continue Check lipid panel DM2: Takes Lantus subcu 8 units every morning Takes Trulicity subcu once weekly and is due today Last A1c 7.1 in 06/08. Glycemic pharmacy consulted while on steroids GERD: Takes omeprazole; continue H/O CVA: Thalamic stroke in 05/2019 s/p tPA Takes aspirin 81 mg daily; continue Disposition: PCP: Jamaal King PA-C Code: Full Code VTE Prophylaxis: Lovenox SQ DO Gretchen Arnett Hospitalist Admission and Anticipated Discharge Date Admission Date: July 03, 2022 Subjective Patient is feeling much less short of breath than yesterday. No wheezing. He is slightly upset because he is still requiring oxygen and needed to take time to recover after walking in the hallways. Denies chest pain, fevers, chills or night sweats. 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 Review of Systems Review of Systems: All systems were reviewed and negative except as indicated in subjective above. Physical Exam Physical Exam: CONSTITUTIONAL: WNWD, vitals as above, generally well- appearing, NAD EYES: normal conjunctivae, no scleral icterus ENT: external ear and nose normal, MMM NECK: trachea midline, no lymphadenopathy, normal thyroid RESPIRATORY: clear to auscultation bilaterally, no crackles, rales or wheezes, normal respiratory effort CARDIOVASCULAR: regular rate and rhythm, S1 and 2 heard without murmurs, gallops or rubs, no JVD, no peripheral edema CHEST: inspection of chest was normal GASTROINTESTINAL: soft, nontender, ND, no guarding MUSCULOSKELETAL: strength 5/5 throughout, head is normocephalic and atraumatic SKIN: warm and dry NEUROLOGIC: CN 2-12 grossly intact, no sensory deficit, normal cognition, normal speech, no tremor PSYCHIATRIC: alert cooperative and oriented to person, place and time. Results & Data Results & Data ([facility]) Vital Signs (Past 12 Hours) Vital Signs Temp Pulse Pulse Resp BP Pulse Ox Pulse Ox 07/04/22 11:30 36.8 C 78 19 121/67 95 07/04/22 08:00 72 07/04/22 08:00 96 07/04/22 07:18 36.6 C 77 16 155/75 H 94 07/04/22 07:03 79 16 96 07/04/22 04:00 36.3 C L 72 18 123/70 94 07/04/22 01:55 85 O2 Del Method O2 Del Method O2 Flow Rate O2 Flow Rate 07/04/22 11:30 Nasal Cannula 1 07/04/22 08:00 07/04/22 08:00 Nasal Cannula 3 07/04/22 07:18 Nasal Cannula 2 07/04/22 07:03 Nasal Cannula 3.5 07/04/22 04:00 Nasal Cannula 4 07/04/22 01:55 Laboratory Results Short CBC 07/04/22 Range/Units 05:44 WBC 7.96 (4.8-10.8) K/ul Hgb 16.1 (14.0-18.0) g/dl Hct 47.5 (40.1-51.0) % Plt Count 244 (130-400) K/uL BMP 07/04/22 05:44 Sodium 134 L Potassium 4.4 Chloride 103 Carbon Dioxide 22 BUN 22 Creatinine 1.01 Glucose 219 H Calcium 9.7 Urine 07/03/22 Range/Units Unknown Urine Color Yellow Urine Appearance Clear (Clear) Urine pH 5.0 (4.5-7.5) Ur Specific Citra > 1.045 H (1.000-1.030) Urine Protein 1+ H (Negative) Urine Glucose (UA) 1+ H (Negative) Diagnostic Findings Chest X-Ray 07/04/22 08:00 XR chest 1V portable HISTORY: 62 years-old Male post-operative coughing and wheezing acute cough with wheezing COMPARISON: Chest radiograph and CTA chest studies 07/03/2022 TECHNIQUE: AP view of the chest FINDINGS: Cardiac silhouette is enlarged. Ill-defined hazy bilateral pulmonary opacities are redemonstrated. No pneumothorax, pleural effusion or lobar airspace consolidation. The bones appear grossly intact. IMPRESSION: Hazy ill-defined bilateral pulmonary opacities are better characterized on yesterday's CTA of the chest, suspicious for an infectious or inflammatory pneumonitis. ACT 112: Negative or not required by law. The above report was generated using voice recognition software. It may contain grammatical, syntax or spelling errors. Electronically signed by: Ashu Pfeiffer M.D. 07/04/2022 9:20 AM Medications Administered Current Inpatient Medications Acetaminophen (Acetaminophen 325 Mg Tab) 650 mg PO Q4H PRN PRN Reason: Pain or Fever Stop: 08/02/22 13:37 Amlodipine Besylate (Amlodipine Besylate 5 Mg Tab) 5 mg PO QAM [facility] Stop: 08/03/22 08:59 Last Admin: 07/04/22 08:15 Dose: 5 mg Aspirin (Aspirin 81 Mg Ectab) 81 mg PO QAM [facility] Stop: 08/03/22 08:59 Last Admin: 07/04/22 08:16 Dose: 81 mg Budesonide (Budesonide 0.5 Mg/2 Ml Vial (Pulmicort)) 0.5 mg NEB BIDR [facility] Stop: 08/02/22 18:59 Last Admin: 07/04/22 07:01 Dose: 0.5 mg Dextrose (Dextrose 50% 50 Ml Syringe) 25 - 50 ml IV UD PRN; Protocol PRN Reason: Hypoglycemia Protocol Stop: 08/02/22 13:37 Enoxaparin Sodium (Enoxaparin Inj 40 Mg/0.4 Ml Syr) 40 mg SQ QAM [facility] Stop: 08/03/22 08:59 Last Admin: 07/04/22 08:15 Dose: 40 mg Formoterol Fumarate (Formoterol 20 Mcg/2 Ml Vial) 20 mcg NEB BIDR [facility] Stop: 08/02/22 18:59 Last Admin: 07/04/22 07:01 Dose: 20 mcg Glucagon (Glucagon For Inj 1 Mg Vial) 1 mg SQ UD PRN; Protocol PRN Reason: Hypoglycemia Protocol Stop: 08/02/22 13:37 Glucose (Glucose 40% Gel 15 Gm Tube) 15 - 30 gm PO UD PRN; Protocol PRN Reason: Hypoglycemia Protocol Stop: 08/02/22 13:37 Glucose (Glucose 10 Tab/Tube) 4 - 8 tab PO UD PRN; Protocol PRN Reason: Hypoglycemia Treatment Stop: 08/02/22 13:37 Azithromycin 250 mg/ Dextrose 252.5 mls @ 125 mls/hr IV DAILY [facility] Stop: 07/07/22 11:02 Last Infusion: 07/04/22 10:44 Dose: Infused Insulin Aspart (Insulin Aspart Per Unit) 0 units SC ACHS [facility] Stop: 08/02/22 14:14 Last Admin: 07/04/22 12:16 Dose: 11 units Labetalol HCl (Labetalol Hcl Iv 5 Mg/Ml 20ml) 5 mg IV Q6H PRN PRN Reason: hypertension Stop: 08/02/22 16:10 Metoprolol Succinate (Metoprolol Succ 25mg Ext Rel Tab) 25 mg PO QAM [facility] Stop: 08/03/22 08:59 Last Admin: 07/04/22 08:15 Dose: 25 mg Miscellaneous (Carbohydrates For Hypoglycemia ) 15 - 30 gm PO UD PRN PRN Reason: Hypoglycemia Protocol Stop: 08/02/22 13:37 Miscellaneous Information (Pharmacy Glycemic Mgmt Consult) 1 each N/A UD PRN PRN Reason: Consult Stop: 08/02/22 13:37 Multivitamins (Multivitamin Tab) 1 tab PO QAM [facility] Stop: 08/03/22 08:59 Last Admin: 07/04/22 08:16 Dose: 1 tab Pantoprazole Sodium (P[facility]oprazole 40 Mg Tab) [facility] Stop: 08/03/22 08:59 Last Admin: 07/04/22 08:16 Dose: 40 mg Prednisone (Prednisone 20 Mg Tab) 40 mg PO DAILY [facility] Stop: 08/04/22 08:59 Rosuvastatin Calcium (Rosuvastatin Calcium 20 Mg Tab) [facility] Stop: 08/03/22 08:59 Last Admin: 07/04/22 08:15 Dose: 40 mg
[2022-07-05] MEDS: BUDESONIDE 0.5 MG/2 ML VIAL (PULMICORT) NEB SCH (06:58)
[2022-07-05] MEDS: FORMOTEROL 20 MCG/2 ML VIAL NEB SCH (06:58)
[2022-07-05] MEDS: INSULIN ASPART PER UNIT SC SCH ×3 (07:58→17:48)
[2022-07-05] MEDS: AZITHROMYCIN 250 MG in DEXTROSE 5% 250 ML IV SCH (07:58)
[2022-07-05] MEDS: METOPROLOL SUCC 25MG EXT REL TAB PO SCH (07:59)
[2022-07-05] MEDS: PANTOprazole 40 MG TAB PO SCH (07:59)
[2022-07-05] MEDS: MULTIVITAMIN TAB PO SCH (07:59)
[2022-07-05] MEDS: ROSUVASTATIN CALCIUM 20 MG TAB PO SCH (07:59)
[2022-07-05] MEDS: ENOXAPARIN INJ 40 MG/0.4 ML SYR SQ SCH (07:59)
[2022-07-05] MEDS: amLODIPine BESYLATE 5 MG TAB PO SCH (08:00)
[2022-07-05] MEDS: ASPIRIN 81 MG ECTAB PO SCH (08:00)
[2022-07-05] MEDS ORDERED: predniSONE 20 MG TAB PO SCH (09:00)
[2022-07-05] MEDS ORDERED: INSULIN HUMAN NPH SC SCH (09:00)
--- NOTE | 2022-07-05 09:34 | Pharmacy Report ---
Pharmacy Glycemic Short Note 2 - Date of Service July 05, 2022 - Glycemic Short BSG Results (Last 24 hours): 07/04/22 07/04/22 07/04/22 11:15 16:18 20:30 POC Glucose 268 H 157 H 207 H 07/05/22 07:36 POC Glucose 195 H OUTPATIENT ANTIDIABETIC REGIMEN: * Lantus U-100: 8 Units subcutaneously every morning * Trulicity: 1.5 mg subcutaneously once weekly HbA1c: 7.1% (07/04/22) ASSESSMENT: 07/05/22: * BSGs elevated yesterday, ranging 157-207 mg/dL likely related to IV Solu- medrol * Steroids changed to prednisone 40 mg PO daily today, will use NPH in place of Lantus to mimic kinetics of steroid * Will tighten carb coverage today given persistent hyperglycemia throughout the day * Consider tightening carb ratio further with breakfast tomorrow morning 07/04/22: * BSGs elevated yesterday and this morning, ranging 170-250 mg/dL * Pulmonary consulted and initiated Solu-medrol 40 mg IV TID, this has subsequently been changed to prednisone 40 mg PO daily starting tomorrow morning * Will increase basal to ~0.4 unit/kg dosing this morning and tighten Novolog in light of ongoing steroids * Consideration for NPH tomorrow with prednisone 07/03/22: * AC 62 year old male, presenting with dyspnea on exertion * Most recent HbA1c: 7.6% on 06/09/19- a new A1c will be drawn tomorrow morning, 07/04/22. * Fasting blood glucose upon admission this morning was 146 mg/dL, suggesting patient is normally well controlled on his outpatient regimen. * Because the patient is employed at [employer] and was admitted following his shift, he was unable to take any of his morning medications including his lantus. * The patient was given a one-time dose of Decadron 10mg IV upon ED admission; I anticipate that this will increase observed blood sugars over the next day or so. PLAN FOR INPATIENT GLYCEMIC CONTROL: * Basal insulin * NPH 30 units SC daily (~0.4 unit/kg) * Bolus insulin * NovoLog per scale ACHS * Goal Range: Low 110 mg/dL - High 140 mg/dL * Correction Factor: 20 mg/dL/unit * Nutritional / Prandial insulin per carb ratio of 1 unit per 6 grams CHO consumed
--- NOTE | 2022-07-05 15:59 | Pulmonology Progress Note ---
Date of Service July 05, 2022 Assessment & Plan (1) Abnormal CT scan, chest: (2) Acute dyspnea: (3) Hypoxemia: Plan 62-year-old male with a history of stroke and bicuspid aortic valve presenting to the hospital due to shortness of breath. He was found to have diffuse mosaicism on CT chest with small subcentimeter pulmonary nodules. He was also found to be hypoxemic. Differential is broad including hypersensitivity pneumonitis and infectious respiratory bronchiolitis. Eosinophil count is not significantly raised. Patient has a cockatiel at home. -Hypoxemia improving significantly. -Prednisone taper over 14 days per hospitalist service. -Discharge patient on Breo Ellipta at a dose of 200 mcg daily. -Azithromycin for 5 days -Procal negative -Respiratory bio fire panel negative -Chest x-ray today with faint bilateral groundglass opacities. -Outpatient HRCT in 3 months along with PFTs Okay for discharge today. We will follow-up in the clinic. Admission and Anticipated Discharge Date Admission Date: July 03, 2022 Subjective Patient seen and examined. Doing well on room air today. Minimal cough. Eager to go home. No chest pain. Review of Systems Review of Systems: All systems reviewed & are unremarkable except as noted in HPI & below Physical Exam Physical Exam: Constitutional: Patient appears to be of their stated age. Patient is in no apparent distress. Patient is well-developed. Eyes: Pupils are equal round and reactive to light. Conjunctivae are normal. Anicteric sclera. Ears nose, mouth and throat: Deferred. Neck: Trachea is midline. Visual inspection is normal. Respiratory: Clear to auscultation bilaterally. No use of accessory muscles. No significant clubbing noted. Cardiovascular: Regular rate and rhythm. No murmurs. No edema. Gastrointestinal: Normal bowel sounds, soft, nontender and nondistended. No hepatosplenomegaly noted. Musculoskeletal: No cyanosis. Patient is able to move all extremities. Strength is 5 out of 5 in the upper and lower extremities. Skin: No rashes, warm dry and intact. Neurologic: No obvious focal neurological deficits seen. Psychiatric: Alert and oriented x3 with a euthymic affect. Results & Data Results & Data ([facility]) Vital Signs (Past 12 Hours) Vital Signs Temp Pulse Resp BP Pulse Ox O2 Del Method O2 Flow Rate 07/05/22 15:31 36.5 C 76 18 123/69 93 Room Air 07/05/22 11:02 36.2 C L 72 19 125/73 92 Room Air 07/05/22 08:00 Room Air 07/05/22 07:36 36.5 C 58 L 19 128/70 93 Room Air 07/05/22 07:00 77 16 94 Nasal Cannula 2 07/05/22 04:00 36.6 C 66 18 109/65 96 Nasal Cannula 2 PG Care Time/CCT Total # of Minutes Spent Total Time Spent with Patient: Total time spent is greater than 50% in coordination of care (as documented) at patient's floor/unit and/or counseling patient: Coding Level of Care Code 81738 Subseq Hosp Care Lvl [address] scan, chest R93.89 Acute dyspnea R06.00 Hypoxemia R09.02
[2022-07-05] MEDS ORDERED: DOXYCYCLINE HYCLATE 100 MG CAP PO SCH (16:00)
--- NOTE | 2022-07-05 16:21 | Hospitalist Progress Note ---
Date of Service July 05, 2022 Assessment & Plan (1) Cough: (2) Hypoxia: (3) Pneumonitis: (4) Hyperlipidemia: (5) Moderate aortic regurgitation: (6) Mild aortic stenosis: (7) Bicuspid aortic valve: (8) History of hypertension: (9) GERD (gastroesophageal reflux disease): (10) DM2 (diabetes mellitus, type 2): Plan Mr. 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 from his outpatient provider clinic for shortness of breath, pleuritic chest pain, CHRISTINA with walking to his care and dizziness, fatigue and a non productive cough that has been occurring x 1 month. Pneumonitis: DD:hypersensitivity pneumonitis Vs infectious respiratory bronchiolitis. Hypoxia: D-dimer 440 Chest CTA negative for PE. Reactive lymph node involvement with bilateral fissure and nodules 8 mm in size. IV steroids transitioned to prednisone. Continue formoterol, budesonide and azithromycin as per pulm Appreciate pulmonology input Weaned off of supplemental oxygen 2 step: Did not qualify for Oxygen Plan to discharge on Breo 200 mcg daily, prednisone taper Also will discharge on doxycycline for possible infection Will need high-resolution CT chest in 3 months along with PFTs as outpatient Needs follow-up with pulmonology upon discharge Suspected Lyme's disease Western blot serology pending Patient denies any tick bite, rash Empirically started on doxycycline Advised to follow-up with PCP regarding duration of antibiotic course and results of serological test for Lyme's disease. HTN: Moderate aortic regurgitation: Mild Aortic Stenosis: Last echo 03/18 2; EF 55 to 59%; follows with Kody Alexandra PA-C outpatient BNP 9 Takes amlodipine and metoprolol ER HLD: on rosuvastatin DM II: On Lantus, Trulicity at home Last A1c 7.1 in 06/08. Glycemic pharmacy consulted GERD: On PPI H/O CVA: Thalamic stroke in 05/2019 s/p tPA Continue aspirin 81 mg daily DVT Px: Lovenox SQ Code Status Full Code Disposition: Home Admission and Anticipated Discharge Date Admission Date: July 03, 2022 Subjective Patient is seen and examined at bedside Reports only minimal intermittent cough Denies dyspnea, dizziness, nausea, abdominal pain, chest pain Discussed with pulmonology Plan to be discharged home today Review of Systems Review of Systems: All systems reviewed & are unremarkable except as noted in Subjective Physical Exam Physical Exam: Physical Exam: Vitals signs as noted above General Appearance:Moderately built and nourished, no apparent distress Head: normocephalic, Atraumatic Eyes: normal inspection, EOMI Neck: supple, Trachea midline Respiratory/Chest: Normal breath sounds, CTA, No accessory muscle use Cardiovascular: S1, S2, No murmur Abdomen/GI:Soft, Non tender, Bowel sounds present Extremities/Musculoskeletal:normal inspection, no edema Neurologic/Psych:AAOX3, grossly no focal neurological deficits Skin: normal color, warm Results & Data Results & Data ([facility]) Vital Signs (Past 12 Hours) Vital Signs Temp Pulse Resp BP Pulse Ox O2 Del Method O2 Flow Rate 07/05/22 15:31 36.5 C 76 18 123/69 93 Room Air 07/05/22 11:02 36.2 C L 72 19 125/73 92 Room Air 07/05/22 08:00 Room Air 07/05/22 07:36 36.5 C 58 L 19 128/70 93 Room Air 07/05/22 07:00 77 16 94 Nasal Cannula 2
--- NOTE | 2022-07-05 16:49 | Discharge Summary ---
Date of Service July 05, 2022 Admission HPI Per Admitting Provider Mr. 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 At his PCP office today, the patient was noted to be hypoxic in the low 80's; at rest he would improve to the low 90's. 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 He reports that he would feel that he would sit in his truck until his cough would resolve until he would start driving, which was about 10 minutes usually. He also reports having a 'racing heart beat' during these events. He further stated that the CHRISTINA would be occurring at work as well when he would go to a call in the hospital. In the ED, he was noted to have an O2 sat of 94% at rest, but would decrease to 89% with ambulation to the bathroom. Additional past medical history includes: AR, , DM2 on Lantus, thalamic stroke in 2019, HTN, HLD, GERD, BPH, degenerative disc disease, none melanoma skin cancer status post Mohs procedure, eczema and he had COVID in 07/2020. In the ED, He denies fever or chills. Patient does report pleuritic right- sided chest pain, dizziness, fatigue. Patient reports his D-dimer was 440, chest CTA was negative for PE however does suggest inflammatory process with possible pneumonitis and reactive lymph node involvement. Bilateral fissure nodules of 8 mm were noted. The patient received IV Decadron, a duoneb tx, and a dose of Cefepime. His BNP was 9 He is euvolemic on exam. Crisp noting the patient's numerous allergies to different antibiotic types including anaphylaxis. His most recent ECHO 04/07 EF 55% and he sees Kody Alexandra PA-C outpatient. He said that he has had PFTs before but does not follow with anybody from pulmonary outpatient and I could not find anything documented in epic. Patient denies tobacco use, recreational drug use, and is a social drinker with his last drink being over a week ago. Patient reports living in an apartment and notes some mold in the home. Patient denies any recent travel but does have a Cockatoo bird at home for the past four years. Patient will be admitted to the hospitalist service for further evaluation and management. Please see A/P for further details. I personally was able to review all current laboratory work and diagnostic images obtained in the ED. Additionally, I was able to review the patients past medication reconciliation and history with direct visualization in the patients chart. This patient was seen in collaboration with Dr. Kim. Admission Exam Per Admitting Provider Physical Exam Physical Exam: Neuro: AAOx4, PERRLA, no aphagia, memory changes, CNII-XII grossly intact HEENT: head normocephalic, moist mucus membranes CV: S1/S2, (+ grade III/ LSB murmur) (-) gallop or rub (-) edema, cap refill < 3 seconds Resp: Lungs decreased in bases On 2LNC GI: Abdomen S/NT/ND, Ax4 bowel sounds, (-) CVA tenderness Musculoskeletal: 5/5 B/L UE strength, 5/5 B/L LE strength. No gait disturbance Skin: (-) rashes , (-) erythema. Psych: euthymic mood Principal Diagnosis Pneumonitis Suspected Lyme's disease Discharge Data Allergies Allergy/AdvReac Type Severity Reaction Status Date / Time ciprofloxacin Allergy Severe Anaphylaxis Verified 12/23/21 13:10 betamethasone Allergy Intermediate Rash/throat Verified 12/23/21 13:10 irritation cephalexin Allergy Mild RASH, Verified 12/23/21 13:10 "makes voice hoarse" sulfite Allergy Mild EARS FELT Verified 12/23/21 13:10 HOT AND REDNESS, FACIAL BLOTCHINESS Sulfa (Sulfonamide Allergy Unknown Unknown Verified 12/23/21 13:10 Antibiotics) latex AdvReac Mild "GAVE Verified 12/23/21 13:10 STRANGE SENSATION TO SKIN" Consultations 07/03/22 12:02 ED Decision to Admit Stat 07/03/22 13:35 Consult Pulmonology Routine Procedures Performed Laboratory Results WBC 7.96 K/ul (4.8-10.8) 07/04/22 05:44 RBC 5.60 M/uL (4.63-6.08) 07/04/22 05:44 Hgb 16.1 g/dl (14.0-18.0) 07/04/22 05:44 Hct 47.5 % (40.1-51.0) 07/04/22 05:44 MCV 84.8 fL (80.0-100.0) 07/04/22 05:44 MCH 28.8 pg (25.0-34.0) 07/04/22 05:44 MCHC 33.9 g/dL (32.0-36.0) 07/04/22 05:44 RDW Std Deviation 41.5 fL (36.4-46.3) 07/04/22 05:44 RDW Coeff of Fatimah 13.4 % (11.5-14.5) 07/04/22 05:44 Plt Count 244 K/uL (130-400) 07/04/22 05:44 MPV 8.9 fL (9.4-12.4) L 07/04/22 05:44 Immature Gran % (Auto) 0.6 % 07/03/22 08:55 Neut % (Auto) 53.9 % 07/03/22 08:55 Lymph % (Auto) 36.9 % 07/03/22 08:55 Hall % (Auto) 6.5 % 07/03/22 08:55 Eos % (Auto) 1.6 % 07/03/22 08:55 Baso % (Auto) 0.5 % 07/03/22 08:55 Neut # (Auto) 5.10 K/uL (1.4-6.5) 07/03/22 08:55 Lymph # (Auto) 3.49 K/uL (1.2-3.4) H 07/03/22 08:55 Hall # (Auto) 0.62 K/uL (0.24-0.82) 07/03/22 08:55 Eos # (Auto) 0.15 K/uL (0-0.50) 07/03/22 08:55 Baso # (Auto) 0.05 K/uL (0-0.2) 07/03/22 08:55 Immature Gran # (Auto) 0.06 K/uL (0.00-0.02) H 07/03/22 08:55 ESR 58 mm/hr (0-20) H 07/04/22 05:44 PT 11.3 Seconds (9.0-12.0) 07/03/22 08:55 INR 1.1 (0.9-1.1) 07/03/22 08:55 APTT 29.0 Seconds (21.0-31.0) 07/03/22 08:55 PTT Ratio 1.1 07/03/22 08:55 D-Dimer 440 ug/L FEU (0-500) 07/03/22 08:55 Sodium 134 mmol/L (136-145) L 07/04/22 05:44 Potassium 4.4 mmol/L (3.5-5.1) 07/04/22 05:44 Chloride 103 mmol/L (98-107) 07/04/22 05:44 Carbon Dioxide 22 mmol/L (21-32) 07/04/22 05:44 Anion Gap 9 (3-11) 07/04/22 05:44 BUN 22 mg/dl (6-23) 07/04/22 05:44 Creatinine 1.01 mg/dl (0.6-1.4) 07/04/22 05:44 Est Cr Clr Drug Dosing 74.7 ml/min 07/04/22 05:44 Est GFR ( Amer) 92.0 ml/min 07/04/22 05:44 Est GFR (Non-Af Amer) 79.3 ml/min 07/04/22 05:44 BUN/Creatinine Ratio 21.8 (10-20) H 07/04/22 05:44 Glucose 219 mg/dl (70-99(Fasting)) H 07/04/22 05:44 POC Glucose 229 mg/dl (70-99) H 07/05/22 16:22 Estimat Average Glucose 157 mg/dl 07/04/22 05:44 Hemoglobin A1c 7.1 % (4.5-5.6) H 07/04/22 05:44 Calcium 9.7 mg/dl (8.5-10.1) 07/04/22 05:44 Magnesium 2.0 mg/dl (1.7-2.4) 07/04/22 05:44 Total Bilirubin 0.5 mg/dl (0.2-1.0) 07/03/22 08:55 AST 25 U/L (13-39) 07/03/22 08:55 ALT 39 U/L (7-52) 07/03/22 08:55 Alkaline Phosphatase 91 U/L (34-104) 07/03/22 08:55 Troponin I High Sens 4.4 pg/ml (0-20) 07/03/22 08:55 C-Reactive Protein 1.62 mg/dl (0-0.5) H 07/04/22 05:44 B-Natriuretic Peptide 9 pg/ml (0-100) 07/03/22 12:15 Total Protein 8.4 gm/dl (6.0-8.3) H 07/03/22 08:55 Albumin 4.0 gm/dl (3.4-5.0) 07/03/22 08:55 Globulin 4.4 gm/dl (2.5-4.0) H 07/03/22 08:55 Albumin/Globulin Ratio 0.9 (0.9-2) 07/03/22 08:55 Procalcitonin < 0.05 ng/ml (0-0.5) 07/03/22 08:55 Urine Color Yellow 07/03/22 Unknown Urine Appearance Clear (Clear) 07/03/22 Unknown Urine pH 5.0 (4.5-7.5) 07/03/22 Unknown Ur Specific [place] > 1.045 (1.000-1.030) H 07/03/22 Unknown Urine Protein 1+ (Negative) H 07/03/22 Unknown Urine Glucose (UA) 1+ (Negative) H 07/03/22 Unknown Urine Ketones Trace (Negative) H 07/03/22 Unknown Urine Blood Negative (Negative) 07/03/22 Unknown Urine Nitrite Negative (Negative) 07/03/22 Unknown Urine Bilirubin Negative (Negative) 07/03/22 Unknown Urine Urobilinogen Negative (Negative) 07/03/22 Unknown Ur Leukocyte Esterase Negative (Negative) 07/03/22 Unknown Urine WBC (Auto) 1-5 /hpf (0-5) 07/03/22 Unknown Urine RBC (Auto) 0-4 /hpf (0-4) 07/03/22 Unknown U Hyaline Cast (Auto) 0 /lpf (0-5) 07/03/22 Unknown U Epithel Cells (Auto) 5-10 /lpf (0-5) H 07/03/22 Unknown Urine Bacteria (Auto) Negative (Negative) 07/03/22 Unknown Adenovirus (PCR) Not Detected (NotDetected) 07/03/22 17:31 B. pertussis DNA (PCR) Not Detected (NotDetected) 07/03/22 17:31 B.parapertussis DNA PCR Not Detected (NotDetected) 07/03/22 17:31 Lyme Disease IgG Ab Negative (Negative) 07/03/22 08:58 Lyme Disease IgM Ab Positive (Negative) A 07/03/22 08:58 C. pneumoniae DNA (PCR) Not Detected (NotDetected) 07/03/22 17:31 Coronavirus OC43 (PCR) Not Detected (NotDetected) 07/03/22 17:31 Coronavirus HKU1 (PCR) Not Detected (NotDetected) 07/03/22 17:31 Coronavirus 229E (PCR) Not Detected (NotDetected) 07/03/22 17:31 SARS-CoV-2 (PCR) Not Detected (NotDetected) 07/03/22 17:31 Coronavirus NL63 (PCR) Not Detected (NotDetected) 07/03/22 17:31 Human Metapneumovir PCR Not Detected (NotDetected) 07/03/22 17:31 Influenza Type A (PCR) Not Detected (NotDetected) 07/03/22 17:31 Influenza Type B (PCR) Not Detected (NotDetected) 07/03/22 17:31 M. pneumoniae (PCR) Not Detected (NotDetected) 07/03/22 17:31 Parainfluenza 1 (PCR) Not Detected (NotDetected) 07/03/22 17:31 Parainfluenza 2 (PCR) Not Detected (NotDetected) 07/03/22 17:31 Parainfluenza 3 (PCR) Not Detected (NotDetected) 07/03/22 17:31 Parainfluenza 4 (PCR) Not Detected (NotDetected) 07/03/22 17:31 RSV (PCR) Not Detected (NotDetected) 07/03/22 17:31 Entero/Rhino (PCR) Not Detected (NotDetected) 07/03/22 17:31 SARS-CoV-2, RNA, NAAT NEGATIVE (NEGATIVE) 07/03/22 09:15 Impressions Chest CTA 07/03/22 08:58 CT angio chest PE protocol CT DOSE: 382.78 mGy.cm HISTORY: 62 years-old Male with Dyspnea. Acute shortness of breath TECHNIQUE: Multiple CTA images of the chest were obtained after the intravenous administration of 118 ml Optiray. Coronal and sagittal MIPS were obtained from the axial data set and were submitted for review. All measurements were obtained according to NASCET criteria. A dose lowering technique was utilized adhering to the principles of ALARA. COMPARISON: CT chest 02/22/2016. FINDINGS: CTA: Heart is normal in size. There is no pericardial effusion. Mild coronary artery calcifications. No thoracic aortic aneurysm or dissection. There is patency of the imaged great vessels. Unremarkable pulmonary artery. The segmental and subsegmental branches are not well evaluated secondary to contrast bolus timing and respiratory motion artifact. No filling defects identified to suggest thromboembolic disease. CT CHEST: No thyroid nodule. Subcentimeter borderline enlarged mediastinal and hilar lymph nodes are favored to be reactive. There is no pneumothorax, pleural effusion, airspace consolidation or overt pulmonary edema. Mild subpleural bleb formation versus paraseptal emphysema of the lung apices. 8 mm fissural nodule within the right midlung on image 157 series 4 previously measured 7 mm. This is suggestive of a benign lymph node. Mild bilateral mosaic attenuation. Ill-defined centrilobular multifocal groundglass opacities. Additionally millimeters fissural nodule of the right midlung image 112 previous and measured 7 mm. This is also suggestive of a probable benign lymph node. Central airways are clear. There are 2 solid nodules within the right upper lobe measuring up to 3 mm on image 219, likely benign. No acute process of the imaged upper abdomen. Degenerative changes of the shoulders and spine. IMPRESSION: 1. No pulmonary emboli identified. 2. Mild air trapping is noted with ill-defined bilateral centrilobular groundglass opacities. Differential considerations would include hypersensitivity pneumonitis versus an infectious pneumonitis. 3. Bilateral fissural nodules measuring up to 8 mm are suggestive of benign lymph nodes. 4. Borderline enlarged mediastinal and hilar lymph nodes, likely reactive. ACT 112: Negative or not required by law. The above report was generated using voice recognition software. It may contain grammatical, syntax or spelling errors. Electronically signed by: Ashu Pfeiffer M.D. 07/03/2022 10:39 AM Chest X-Ray 07/04/22 08:00 XR chest 1V portable HISTORY: 62 years-old Male post-operative coughing and wheezing acute cough with wheezing COMPARISON: Chest radiograph and CTA chest studies 07/03/2022 TECHNIQUE: AP view of the chest FINDINGS: Cardiac silhouette is enlarged. Ill-defined hazy bilateral pulmonary opacities are redemonstrated. No pneumothorax, pleural effusion or lobar airspace consolidation. The bones appear grossly intact. IMPRESSION: Hazy ill-defined bilateral pulmonary opacities are better characterized on yesterday's CTA of the chest, suspicious for an infectious or inflammatory pneumonitis. ACT 112: Negative or not required by law. The above report was generated using voice recognition software. It may contain grammatical, syntax or spelling errors. Electronically signed by: Ashu Pfeiffer M.D. 07/04/2022 9:20 AM Ordered Studies 07/03/22 08:58 CT angio chest PE protocol Stat Hospital Course (1) Cough: (2) Hypoxia: (3) Pneumonitis: (4) Hyperlipidemia: (5) Moderate aortic regurgitation: (6) Mild aortic stenosis: (7) Bicuspid aortic valve: (8) History of hypertension: (9) GERD (gastroesophageal reflux disease): (10) DM2 (diabetes mellitus, type 2): Plan Mr. 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 Pneumonitis: DD:hypersensitivity pneumonitis Vs infectious respiratory bronchiolitis. Hypoxia: D-dimer 440 Chest CTA negative for PE. Reactive lymph node involvement with bilateral fissure and nodules 8 mm in size. IV steroids transitioned to prednisone. Continue formoterol, budesonide and azithromycin as per pulm Appreciate pulmonology input Weaned off of supplemental oxygen 2 step: Did not qualify for Oxygen Plan to discharge on Breo 200 mcg daily, prednisone taper Also will discharge on doxycycline for possible infection Will need high-resolution CT chest in 3 months along with PFTs as outpatient Needs follow-up with pulmonology upon discharge Suspected Lyme's disease Western blot serology pending Patient denies any tick bite, rash Empirically started on doxycycline Advised to follow-up with PCP regarding duration of antibiotic course and results of serological test for Lyme's disease. HTN: Moderate aortic regurgitation: Mild Aortic Stenosis: Last echo 03/18 2; EF 55 to 59%; follows with Kody Alexandra PA-C outpatient BNP 9 Takes amlodipine and metoprolol ER HLD: on rosuvastatin DM II: On Lantus, Trulicity at home Last A1c 7.1 in 06/08. Glycemic pharmacy consulted GERD: On PPI H/O CVA: Thalamic stroke in 05/2019 s/p tPA Continue aspirin 81 mg daily DVT Px: Lovenox SQ Code Status Full Code Disposition: Home Total Time Total Time Spent Total Time Spent (In Minutes): 45 minutes Discharge Plan Discharge Items Patient Disposition: Home - Self-Care Reason For Visit: HYPOXIA, PNEUMONITIS Discharge Diagnosis: Pneumonitis Suspected Lyme's disease Activity: Per Instructions section Exercise/Sports: Gradually increase as tolerated Non-emergency contact: Primary Care Provider and Auto Inspection Specialist Call non-emergency contact if: you have any medication questions, your symptoms worsen and your pain is concerning for you Follow-up/Referrals: Jamaal King PA-C [Primary Care Provider] - Diet: Carb Consistent or DM2 and Heart Healthy Addtl Attending Provider Instructions: Follow-up with your primary care physician Jamaal King PA-C in 1 week Follow-up with your rigging slinger Dr. Arreaga in 2-3 weeks --- Complete the antibiotic, prednisone course as prescribed. --You are recommended to have repeat high-sensitivity CT chest in 3 months and will pulmonary function test as outpatient --- Prednisone taper course Start taking prednisone 30 mg daily for 4 days, then take 20 mg daily for 4 days, then take 10 mg daily for 4 days and stop --- Recommend to increase Lantus dose to 10 units subcutaneous daily for 4 days (While on higher dose of prednisone course) and then transition back to 8 units daily as previously prescribed. Monitor your blood glucose levels closely and discuss with your primary care physician for further adjustment of insulin dose as needed. --- Your serological test for Lyme's disease is pending at the time of discharge. Follow-up with your physician for results. If your test results are negative, would recommend to discontinue doxycycline antibiotic course as per your primary care physician. -- Start taking Breo Ellipta as recommended by your rigging slinger. Seek immediate medical attention if your symptoms reoccur or worsen Please take all medications as instructed on discharge list below. Please call if you have any questions or problems. You can reach a [facility] hospitalist on duty at [facility] 24 hours a day by calling [phone] Pending Studies at Discharge: Yes Studies:: Serological test for Lyme's disease Stand-Alone Forms: My [facility], Smoking Cessation Medications and DC Order Prescriptions: New doxycycline hyclate 100 mg Capsule 100 mg PO BID Qty: 19 0RF fluticasone furoate-vilanterol [Breo Ellipta] 200-25 mcg/dose blister with device 1 inh inhalation DAILY Qty: 60 0RF prednisone 10 mg tablet 10 mg PO UD Qty: 24 0RF Rx Instructions: Start taking prednisone 30 mg daily for 4 days, then take 20 mg daily for 4 days, then take 10 mg daily for 4 days and stop Continued rosuvastatin 40 mg capsule, sprinkle 40 mg PO QAM metoprolol succinate 25 mg tablet extended release 24 hr 25 mg PO QAM multivitamin Tablet 1 tab PO QAM Lantus Solostar U-100 Insulin 8 units SC QAM amlodipine 5 mg Tablet 5 mg PO QAM omeprazole 40 mg Capsule,Delayed Release(Dr/Ec) 40 mg PO QAM Trulicity 1.5 mg/0.5 mL Pen Injector 1.5 mg SUBCUT WK Label Comments: takes on mondays aspirin 81 mg tablet,delayed release (DR/EC) 81 mg PO QAM Discharge Orders: Discharge Order (Routine); Ordered 07/05/22 Ordered By: Blake Tyler/Other Patient Handouts: Managing Type 2 Diabetes Admission Data Admit Date/Time: 07/03/22 12:45 Attending Provider: Blake Guadalupe Admit Provider: Dayne Kim Primary Care Provider: Jamaal King Other Providers: Toño Arreaga ; Dayne Kim
[2022-07-07 01:52] LABS: 18KDIGG Band NON-REACTIVE; 23KDIGG Band NON-REACTIVE; 23KDIGM Band NON-REACTIVE; 28KDIGG Band NON-REACTIVE; 30KDIGG Band NON-REACTIVE; 39KDIGG Band NON-REACTIVE; 39KDIGM Band NON-REACTIVE; 41KDIGG Band NON-REACTIVE; 41KDIGM Band NON-REACTIVE; 45KDIGG Band NON-REACTIVE; 58KDIGG Band NON-REACTIVE; 66KDIGG Band NON-REACTIVE; 93KDIGG Band NON-REACTIVE; Lyme Antibodies, WB IgG NEGATIVE (NEGATIVE); Lyme Antibodies, WB IgM NEGATIVE (NEGATIVE)
== END 2022-07-05 18:00 | disposition home or self-care (01) | DRG 197 ==
LOC: ED 08:36 → 2S 12:45 → SUATTDRO 12:45 → 2S 13:11